=== PATIENT | female | born 1950 | race Caucasian/White ===

== ENCOUNTER → 2016-07-13 | Outpatient (CLI) | payer OTHER ==
[~2016-07-13] MED LIST: ASPEC81 PO; ASPI81TA21 PO; IMDSR30 PO; LEVO100T PO; LEVO100T84 PO; METO25TA56 PO; NIAC1TAB59 PO; NTRGSL/4 UT; OMEP20CA9 OR; PARO1TAB29 PO; SIMV80TA5 OR
--- NOTE | 2016-07-13 12:15 | DIAGNOSTIC IMAGING REPORT ---
BILATERAL POPLITEAL ULTRASOUND CLINICAL HISTORY: Bilateral knee pain. COMPARISON STUDY: No previous studies for comparison. FINDINGS: Sonography of the right popliteal fossa demonstrated a 3.7 x 1.1 cm cystic abnormality suggestive of a popliteal cyst. Sonography of the left popliteal fossa demonstrated a 3.7 x 1 cm cystic abnormality suggestive of a popliteal cyst. IMPRESSION: Small bilateral popliteal cysts. Electronically signed by: Willie Ji M.D. 07/13/2016 12:13 PM Dictated Date/Time: 07/13/2016 12:11 PM
--- NOTE | 2016-07-13 12:22 | DIAGNOSTIC IMAGING REPORT ---
RIGHT KNEE 1 OR 2 VIEWS ROUTINE CLINICAL HISTORY: Right knee pain COMPARISON: None. DISCUSSION: No acute fractures are visualized. There are moderately advanced osteoarthritic changes involving the medial joint compartment and patellofemoral joint. No destructive lesions are visualized IMPRESSION: 1. Moderately advanced osteoarthritic changes 2. No acute fractures Electronically signed by: Jb Flaherty M.D. 07/13/2016 12:20 PM Dictated Date/Time: 07/13/2016 12:19 PM
--- NOTE | 2016-07-13 12:30 | DIAGNOSTIC IMAGING REPORT ---
LEFT KNEE 1 OR 2 VIEWS ROUTINE CLINICAL HISTORY: Bilateral knee pain. COMPARISON: Left knee radiographs December 27, 2008. FINDINGS: Alignment of left knee is anatomic. There is no fracture or joint effusion. There is mild medial compartment joint space narrowing as well as mild narrowing of the patellofemoral joint space. There is osteophytosis. Moderate vascular calcification is present. 9 mm calcific density is noted posterior to the joint space. This may be within a popliteal cyst. IMPRESSION: 1. No acute fracture or joint effusion of the left knee. 2. Mild to moderate arthritis of the left knee, most pronounced within the medial and patellofemoral compartments. Electronically signed by: Willie Ji M.D. 07/13/2016 12:28 PM Dictated Date/Time: 07/13/2016 12:26 PM
== END | disposition home or self-care (01) ==
LOC: C.ULTR 11:46
PROVIDERS: ATTEND Family Medicine
DX: M25.569 Pain in unspecified knee (principal)

== ENCOUNTER 2016-10-25 22:31 | Emergency (ER) | payer OTHER ==
[~2016-10-25] VITALS: Ht 165.1 cm; Wt 99.8 kg
[~2016-10-25 22:31] MED LIST changes: -ASPI81TA21 PO; -LEVO100T PO
[2016-10-25 22:38] VITALS: TEMP 36.3; Ht 165.1 cm; Wt 99.8 kg
[2016-10-25] MEDS ORDERED: LEVO100T PO (22:57)
[2016-10-25] MEDS ORDERED: ASPI81TA21 PO (22:57)
[2016-10-25] MEDS ORDERED: IMDSR30 PO (22:57)
[2016-10-25] MEDS ORDERED: ONDANSETRON INJ 2 MG/ML 2 ML VIAL IV STA (23:24)
[2016-10-25] MEDS ORDERED: KETOROLAC TROMETHAMINE 30 MG/ML VIAL IV STA (23:24)
[2016-10-25] MEDS ORDERED: MoRPHine SULFATE 4 MG/ML 1 ML CARP\\VIAL IV STA (23:24)
--- NOTE | 2016-10-25 23:35 | EMERGENCY ROOM VISIT NOTE ---
History Report prepared by Blank: Fred Blanco Under the Supervision of: Dr. Blank Diaz D.O. First contact with patient: 23:09 Chief Complaint: NECK PAIN Stated Complaint: NECK PAIN/HEAD History of Present Illness The patient is a 65 year old female who presents to the Emergency Room with complaints of persistent neck pain that started yesterday. The patient also complains of sore throat, ear pain, and headache. The patient notes that her neck pain got significantly worse throughout the day yesterday. Her neck discomfort is worse in the back of her neck, but she also notes the front of her neck is tender to the touch. She notes she has never had similar symptoms before. The patient denies fevers, chills, cough, nausea, vomiting, abdominal pain, chest pain, shortness of breath, or leg swelling or pain at this time. Source of History: patient Onset: yesterday Position: neck Timing: other (persistent) Associated Symptoms: + headache, + sorethroat, No SOB, No abdominal pain, No chest pain, No chills, No cough, No fevers, No nausea, No vomiting Note: Other associated symptoms: ear pain' Denies: leg swelling or pain Review of Systems See HPI for pertinent positives & negatives. A total of 10 systems reviewed and were otherwise negative. Past Medical & Surgical Medical Problems: (1) Diabetes (2) Heart disease Family History FH: cancer FH: diabetes mellitus FH: heart disease FH: hypertension FH: lung disease Kidney stone Social History Smoking Status: Current Every Day Smoker Alcohol Use: occasionally Housing Status: lives with family Occupation Status: unemployed Current/Historical Medications Scheduled Aspirin Enteric Coated (Ecotrin Or Generic), 81 MG PO DAILY Isosorbide Mononitrate (Isosorbide Mononitrate ER), 30 MG PO DAILY Levothyroxine Sodium (Synthroid), 100 MCG PO DAILY Metoprolol Tartrate (Lopressor) (Lopressor), 12.5 MG PO DAILY Niacin Ext Rel (Niaspan Ext Rel), 500 MG PO DAILY Nitroglycerin (Nitrostat), 0.4 MG UT PRN Omeprazole (Prilosec), 20 MG OR DAILY Paroxetine (Paxil), 40 MG PO DAILY Allergies Coded Allergies: No Known Allergies (Verified , 10/25/16) Physical Exam Vital Signs Date Time Temp Pulse Resp B/P Pulse Ox O2 Delivery O2 Flow Rate FiO2 10/26/16 02:03 67 16 132/70 98 10/26/16 00:37 72 16 122/67 96 Room Air 10/25/16 22:38 36.3 98 20 139/82 97 Room Air Physical Exam General: Extremely uncomfortably appearing, holding her neck. HEENT: Head - normocephalic and atraumatic. Pupils are equal, round, and reactive to light. Extraocular eye muscles are intact and sclera are anicteric. Ears - bilaterally patent canals with noninjected tympanic membranes and no evidence of hemotympanum. Nose - moist nasal mucosa without discharge. Mouth - moist buccal mucosa. Oropharynx is nonerythematous and there is no tonsillar exudate or edema noted. Neck: Left anterior cervical lymphadenopathy. Tender to the touch. Pain with palpation around C3 and C4 of the midline cervical spine. No thyromegaly. Heart: Regular rate and rhythm. There is a normal S1 and S2 with no murmurs, clicks, or gallops appreciated. Lungs: Clear to auscultation bilaterally with no wheezes, rales, or rhonchi. Abdomen: Soft, completely nontender, nondistended, with good bowel sounds. There are no palpable pulsatile masses or hepatosplenomegaly. There is no guarding, rigidity, or rebound noted. Extremities: No evidence of cyanosis, clubbing, or edema. There are easily palpable peripheral pulses. Neuro:The patient is awake and alert, oriented to day, time, and place. Muscle strength is 5/5 in all 4 extremities. The patient has equal back tender pulp drier strength and equal pedal push and pull. There are no cerebellar signs. Medical Decision & Procedures ER Provider Diagnostic Interpretation: CT results as stated below per my review and radiologist interpretation: CT C Spine: There may be slight nodularity of the vocal cords versus partial volume averaging. No fluid collections or masses. No inflammatory changes. Epiglottis normal. Airway patent. Calcific plaque bilateral proximal ICA with mild to moderate stenosis proximal right ICA and mild stenosis left ICA. Degenerative changes at C1-C2. No prevertebral soft tissue swelling. Laboratory Results 10/25/16 23:28 Red Blood Count 4.52, Mean Corpuscular Volume 94.9, Mean Corpuscular Hemoglobin 33.6, Mean Corpuscular Hemoglobin Concent 35.4, Mean Platelet Volume 10.9, Neutrophils (%) (Auto) 44.2, Lymphocytes (%) (Auto) 42.4, Monocytes (%) (Auto) 10.0, Eosinophils (%) (Auto) 2.7, Basophils (%) (Auto) 0.4, Neutrophils # (Auto ) 3.42, Lymphocytes # (Auto) 3.27, Monocytes # (Auto) 0.77, Eosinophils # (Auto ) 0.21, Basophils # (Auto) 0.03 10/25/16 23:28 Test 10/25/16 23:28 White Blood Count 7.72 K/uL (4.8-10.8) Red Blood Count 4.52 M/uL (4.2-5.4) Hemoglobin 15.2 g/dL (12.0-16.0) Hematocrit 42.9 % (37-47) Mean Corpuscular Volume 94.9 fL (80-100) Mean Corpuscular Hemoglobin 33.6 pg (25-34) Mean Corpuscular Hemoglobin Concent 35.4 g/dl (32-36) Platelet Count 202 K/uL (130-400) Mean Platelet Volume 10.9 fL (7.4-10.4) Neutrophils (%) (Auto) 44.2 % Lymphocytes (%) (Auto) 42.4 % Monocytes (%) (Auto) 10.0 % Eosinophils (%) (Auto) 2.7 % Basophils (%) (Auto) 0.4 % Neutrophils # (Auto) 3.42 K/uL (1.4-6.5) Lymphocytes # (Auto) 3.27 K/uL (1.2-3.4) Monocytes # (Auto) 0.77 K/uL (0.11-0.59) Eosinophils # (Auto) 0.21 K/uL (0-0.5) Basophils # (Auto) 0.03 K/uL (0-0.2) RDW Standard Deviation 44.4 fL (36.4-46.3) RDW Coefficient of Variation 12.8 % (11.5-14.5) Immature Granulocyte % (Auto) 0.3 % Immature Granulocyte # (Auto) 0.02 K/uL (0.00-0.02) Erythrocyte Sedimentation Rate 6 mm/hr (0-21) Anion Gap 9.0 mmol/L (3-11) Est Creatinine Clear Calc Drug Dose 91.0 ml/min Estimated GFR () 99.9 Estimated GFR (Non- 86.2 BUN/Creatinine Ratio 16.5 (10-20) Calcium Level 9.0 mg/dl (8.5-10.1) C-Reactive Protein < 0.29 mg/dl (0-0.29) Laboratory results per my review. Medications Administered Medications (Trade) Dose Ordered Sig/Paula Route Start Time Stop Time Status Last Admin Dose Admin Ketorolac Tromethamine (Toradol Inj) 30 mg NOW STAT IV 10/25/16 23:24 10/25/16 23:26 DC 10/25/16 23:45 30 MG Morphine Sulfate (MoRPHine SULFATE INJ) 4 mg NOW STAT IV 10/25/16 23:24 10/25/16 23:27 DC 10/25/16 23:45 4 MG Ondansetron HCl (Zofran Inj) 4 mg NOW STAT IV 10/25/16 23:24 10/25/16 23:27 DC 10/25/16 23:45 4 MG Procedure Zofran Inj IV Morphine Sulfate IV Toradol Inj Oxycodone/ Acetaminophen PO ED Course 2312: Past medical records reviewed. The patient was evaluated in room C3. A complete history and physical exam was performed. An IV lock was initiated and labs were drawn as above. 2324: Ordered Zofran Inj 4 mg IV, Morphine Sulfate 4 mg IV, Toradol Inj 30 mg IV. She will go for CT scan of the cervical spine with IV contrast to rule out abscess formation. 0018: At this time, I reevaluated the patient and she was feeling better. She rated her discomfort as a 4 out of 10 in severity which was down from before when it was a 10 out of 10. The patient still did have point tenderness around C3 and C4 on exam. 0141: Upon reevaluation, the patient is resting. Her pain is starting to come back slightly, but she states that she does not want anything more for pain. We discussed a lumbar puncture again to rule out meningitis and she feels this is unnecessary at this time. She will follow-up with her PCP tomorrow to discuss the carotid stenosis finding before her cardiac catheterization later this week. 0200: Ordered Oxycodone/ Acetaminophen 1 homepack PO. 0205: I discussed findings and results with her. She verbalized agreement of the treatment plan. The patient was discharged home. Medical Decision The patient is a 65 year old female who presents to the ED with neck pain. Differential diagnosis includes meningitis, epidural abscess, torticollis, cervical strain, pharyngitis, or otitis media. Labs reviewed by me: no leukocytosis, stable H&H, sed rate was 6, negative c- reactive protein, BUN 12, creatinine 0.7, glucose 138. This is a 65-year-old female patient who presents emergency department with moderate posterior neck pain. We talked about the possibility of meningitis, torticollis, or an epidural abscess. The patient's family is concerned that she is suffering from significant stress as they have had multiple deaths in her family in the past 4 months. Her pain was significantly relieved with IV analgesia. She has increased range of motion. She has no leukocytosis or fever to suggest an infectious process. Sedimentation rate and C-reactive protein were also negative. In light of those findings, the likelihood of an infectious process is less likely. As an incidental finding, there was moderate stenosis of the right internal carotid artery. 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 If the discomfort in the neck persists, she should see her PCP later today. If she develops a fever or worsening symptoms, she should return here to the ER. Impression Primary Impression: Neck pain, acute Scribe Attestation The scribe's documentation has been prepared under my direction and personally reviewed by me in its entirety. I confirm that the note above accurately reflects all work, treatment, procedures, and medical decision making performed by me. Departure Information Dispostion Home / Self-Care Referrals Sivan Torres PA-C (PCP) Forms HOME CARE DOCUMENTATION FORM, IMPORTANT VISIT INFORMATION, WORK / SCHOOL INSTRUCTIONS Patient Instructions ED Neck Pain No Trauma, My [facility], Neck Cervical Spine Additional Instructions Rest. Limit stress and anxiety Ibuprofen - 800mg every 6-8 hours for pain Percocet - 1-2 tabs. every 6 hours for pain You must follow up today with your PCP for a recheck and to also discuss the narrowing of the right internal carotis artery before your cath on . Return to the ER immediately for any fever or worsening neck stiffness
[2016-10-25 23:44] LABS: BASO % 0.4 %; BASO ABS # 0.03 K/uL (0-0.2); COMPLETE YES; EOS % 2.7 %; HEMATOCRIT 42.9 % (37-47); IG% 0.3 %; LYMPH % 42.4 %; LYMPH ABS # 3.27 K/uL (1.2-3.4); MEAN CELL VOLUME 94.9 fL (80-100); MEAN CORPUSCULAR HEMOGLOBIN 33.6 pg (25-34); MEAN CORPUSCULAR HGB CONC 35.4 g/dl (32-36); MEAN PLATELET VOLUME 10.9 fL (7.4-10.4); NEUT % 44.2 %; PLATELET COUNT 202 K/uL (130-400); RED BLOOD COUNT 4.52 M/uL (4.2-5.4); WHITE BLOOD COUNT 7.72 K/uL (4.8-10.8)
[2016-10-26 00:04] LABS: BLOOD UREA NITROGEN 12 mg/dl (7-18); BUN/CREATININE RATIO 16.5 (10-20); C-REACTIVE PROTEIN < 0.29 mg/dl (0-0.29); CARBON DIOXIDE 27 mmol/L (21-32); CHLORIDE 106 mmol/L (98-107); CREATININE 0.74 mg/dl (0.60-1.20); GLUCOSE 138 mg/dl (70-99); POTASSIUM 3.8 mmol/L (3.5-5.1); SODIUM 142 mmol/L (136-145)
[2016-10-26] MEDS ORDERED: OPTIRAY 320 IV PRN (00:30)
[2016-10-26] MEDS ORDERED: PERCOCET HOME PACK PO ONE (02:00)
[2016-10-26 02:03] VITALS: BP 132/70; PULSE 67; O2SAT 98
--- NOTE | 2016-10-26 06:51 | DIAGNOSTIC IMAGING REPORT ---
CT CERVICAL SPINE WITH CT DOSE: 307.38 mGy.cm CLINICAL HISTORY: Severe pain at C3 and C4. Evaluate for abscess. TECHNIQUE: Axial images of the cervical spine were obtained following intravenous injection of 100 cc of Optiray 320 IV. Sagittal and coronal reconstructions were viewed. COMPARISON STUDY: None. FINDINGS: Alignment of the cervical spine is anatomic with the exception of straightening. No cervical spine fracture or suspicious lesion is present. Moderate degenerative changes are noted at C1-C2 articulation. There is calcification adjacent to the dens. This is likely old. There is no prevertebral edema. Sensitivity for detection of epidural collections is diminished by CT but none are identified. [id number] multilevel degenerative disc disease and facet arthrosis is noted, most pronounced at C5-C6 and C6-C7. There is moderate plaque within the proximal bilateral internal carotid arteries without high-grade stenosis. IMPRESSION: 1. No cervical spine fracture or subluxation. 2. Mild to moderate multilevel degenerative disc disease and facet arthrosis of the cervical spine. 3. No epidural fluid collection identified by CT. 4. Moderate plaque within the proximal bilateral internal carotid arteries. Findings are suboptimally assessed on this exam but suggest mild stenosis of the proximal right internal carotid artery. No high-grade stenosis. Electronically signed by: Willie Ji M.D. 10/26/2016 6:48 AM Dictated Date/Time: 10/26/2016 6:41 AM
== END 2016-10-26 02:04 | disposition home or self-care (01) ==
LOC: C.EDB 22:32 → C.EDC 10-26 02:04
DX: M54.2 Cervicalgia (principal); E11.9 Type 2 diabetes mellitus without complications; F17.200 Nicotine dependence, unspecified, uncomplicated; Z83.3 Family history of diabetes mellitus; Z82.49 Family history of ischemic heart disease and other diseases of the circulatory system; Z84.1 Family history of disorders of kidney and ureter; Z79.82 Long term (current) use of aspirin

== ENCOUNTER 2024-10-04 12:19 | Inpatient (IN) ==
--- NOTE | 2024-10-04 12:27 | Emergency Department Note ---
Impression & Plan Closed hip fracture Admission ED Provider Note HPI: History obtained from patient. The patient is a 73-year-old female with history of coronary artery disease, presents the emergency department after mechanical fall. Patient states that she was walking into a restaurant when she missed a step and fell onto her left hip. Patient states she has severe pain in the area of her left hip. Patient denies any other injuries. Patient arrives via EMS otherwise hemodynamically stable, she is alert and oriented x 3 on arrival. Patient denies any chest pain or shortness of breath, denies any abdominal pain, patient denies hitting her head. Patient has limited range of motion at the right hip secondary to pain. ROS: - Per HPI Differential Diagnosis: Right hip fracture, dislocation, pelvic fracture, knee dislocation/knee fracture, patellar fracture, hip contusion/thigh contusion, amongst other potential pathologies. *Outpatient medications and allergy history reviewed. PE: General: Alert HEENT: Normocephalic, trachea midline Eyes: Extraocular eye movement is intact, no scleral erythema Pulmonary: Clear to auscultation bilaterally, no wheezing Cardio: Regular rate and rhythm GI: Abdomen is soft to palpation : No suprapubic tenderness MSK: Limited range of motion at the left hip secondary to pain, otherwise no evidence of trauma or malformation of the extremities, no edema, palpable DP pulses bilaterally Skin: No evidence of rash Neuro: Alert, no focal deficits Psychiatric: Cooperative INDEPENDENT INTERPRETATIONS: clinic coordinator: (As interpreted by myself): - An order was placed for continuous cardiac monitoring - Patient was noted to be in sinus rhythm with a rate of 60 EKG: (As interpreted by myself): Rate: 63 Rhythm: Normal sinus rhythm Intervals: Within normal limits ST changes: No ST elevation Time: 1307 Chest x-ray: (As interpreted by myself): No acute disease Interventions provided in ED: -IV morphine, IV Zofran, IV fluid bolus Medical Decision Making: IV was established and lab work obtained, 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 Lab work shows no leukocytosis, hemoglobin is normal, platelet count is normal, CMP does not show any evidence of any critical findings. Troponin is negative. EKG shows normal sinus rhythm. X-ray imaging of the pelvis does confirm left nondisplaced intertrochanteric hip fracture. Chest x-ray does not show any evidence of acute disease. On my reassessment the patient states that she feels improved following IV morphine and IV Zofran. Patient is agreeable for admission for orthopedic surgery consultation. Case was discussed via [place] text with the on-call orthopedist, Dr. Santoyo, and he is in agreement for consultation and definitive care. Case was then discussed with the on-call hospitalist team for [facility] and the patient was placed for admission in stable condition. Consultants/Discussions held with other healthcare providers: -Orthopedics, Dr. Santoyo -Hospitalist, Dr. Luong Disposition discussion held by myself with: -Patient Diagnosis: 1. Left hip fracture, acute, closed 2. Mechanical fall, acute Disposition: Admission Lázaro Vick DO Emergency Medicine Past Med/Surg History Problem List (Updated 10/04/24 @ 17:53 by Lázaro Vick DO) Closed hip fracture (Acute) Fall Fracture of femur, left, closed Malignant neoplasm of upper-inner quadrant of left breast in female, estrogen receptor positive (Chronic) Encounter for pre-operative examination Diabetes (Chronic) Heart disease (Chronic) Medical History (Updated 10/04/24 @ 17:53 by Lázaro Vick DO) Tobacco use CAD (coronary artery disease) Breast cancer Left - Diagnosed 05/24/18 Hypothyroidism Diabetes mellitus, type 2 Anxiety Myocardial Infarction CARDIAC CATH 2007 YEARS AGO WITH STENT to RCA. COMPLICATED BY PROXIMAL RCA DISSECTION TREATED WITH BMS. TX TO [facility] BUT DID NOT REQUIRE FURTHER INTERVENTION. CT 04/05/08 SHOWED NO FLOW DOWN RCA BUT APPEARANCE OF COLLATERALS. RPT CATH 2017 SHOWED IMPROVED FLOW IN RCA COMPARED TO 2007. Hyperlipidemia Arrhythmia FREQUENT PVCs noted on Holter 2017. Metoprolol was increased; hypomagnesemia was noted on labs, started on supplementation. Surgical History Status post left breast lumpectomy 06/30/18 - with SLN biopsy History of colonoscopy 2008 History of carpal tunnel release 2002 - B/L History of bilateral tubal ligation 1984 History of cardiac cath 2007 Family History Mother , Passed age 64 of asthma complications No problems noted. Father , Passed age 76 of hemochromotosis Lung cancer, Onset Age: 57 Had surgery and then was okay, was a smoker Sister , Passed age 55 of metastatic lung cancer (unknown primary) Lung cancer Sister , Passed age 59 of [place] No problems noted. Sister Multiple sclerosis Brother No problems noted. Son No problems noted. 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 Machine Required: No Beliefs That Will Affect Care: None marital status: / Current Living Situation: Family Current Living Situation Comment: Lives with sister (takes care of her) current occupational status: retired current occupation: Retired at [employer] Feels Safe at Home: Yes caffeine: Yes (6 cups of coffee/day ) during the past year weight has: decreased > 10 lbs Assistive Devices: Denture - Upper, Denture - Lower and Glasses Allergies Allergies Allergy/AdvReac Type Severity Reaction Status Date / Time No Known Allergies Allergy Unknown Verified 10/04/24 13:43 Home Meds Home Medications Medication Instructions Recorded Confirmed atorvastatin 80 mg tablet 80 mg PO QAM 06/13/18 10/04/24 metoprolol tartrate 25 mg tablet 12.5 mg PO BID 06/13/18 10/04/24 calcium carbonate (Calcium 600) 600 mg PO HS 11/23/18 10/04/24 alirocumab 75 mg/mL subcutaneous 75 mg subcut Q14D 10/04/24 10/04/24 pen injector (Praluent Pen) aspirin 81 mg tablet,delayed 81 mg PO QAM 10/04/24 10/04/24 release duloxetine 60 mg capsule,delayed 60 mg PO QAM 10/04/24 10/04/24 release levothyroxine 100 mcg tablet 100 mcg PO DAILYBB 10/04/24 10/04/24 omeprazole 20 mg capsule,delayed 20 mg PO HS 10/04/24 10/04/24 release semaglutide 0.25 mg or 0.5 mg (2 0.5 mg subcut WK 10/04/24 10/04/24 mg/3 mL) subcutaneous pen injector (Ozempic) Results & Data (ED) Vital Signs Vital Signs - 24 hr 10/04/24 12:23 10/04/24 12:33 10/04/24 12:42 Temperature 36.4 C L Temperature Source Oral Pulse Rate 62 62 61 Pulse Rate [Apical] Respiratory Rate 13 14 Respiratory Effort / Characteristics Non-Labored Spontaneous Respiratory Depth Normal Blood Pressure 130/78 Blood Pressure [Left Arm] Blood Pressure Mean 95 Blood Pressure Mean [Left Arm] Blood Pressure Position Semi-fowlers Blood Pressure Position [Left Arm] Pulse Oximetry 99 99 Oxygen Delivery Method Room Air Room Air Oxygen Flow Rate Sepsis Recent Fever Within 48 Hours No Sepsis New/Unexplained Change in Mental Status N/A Sepsis Action Taken by Nursing No Action Required 10/04/24 13:39 10/04/24 13:39 10/04/24 13:39 Temperature 36.4 C 36.4 C Temperature Source Oral Pulse Rate 70 Pulse Rate [Apical] 70 Respiratory Rate 16 13 Respiratory Effort / Characteristics Non-Labored Spontaneous Respiratory Depth Normal Blood Pressure 129/62 Blood Pressure [Left Arm] 129/62 Blood Pressure Mean Blood Pressure Mean [Left Arm] 84 Blood Pressure Position Blood Pressure Position [Left Arm] Semi-fowlers Pulse Oximetry 97 97 97 Oxygen Delivery Method Room Air Room Air Room Air Oxygen Flow Rate 0 Sepsis Recent Fever Within 48 Hours Sepsis New/Unexplained Change in Mental Status Sepsis Action Taken by Nursing Laboratory Data 10/04/24 12:25 10/04/24 12:25 Lab Results 10/04/24 Range/Units 12:25 WBC 7.50 (4.8-10.8) K/ul RBC 4.54 (4.20-5.40) M/uL Hgb 15.1 (12.0-16.0) g/dl Hct 43.7 (37.0-47.0) % MCV 96.3 (80.0-100.0) fL MCH 33.3 (25.0-34.0) pg MCHC 34.6 (32.0-36.0) g/dL RDW Std Deviation 44.6 (36.4-46.3) fL RDW Coeff of Leon 12.6 (11.5-14.5) % Plt Count 188 (130-400) K/uL MPV 10.8 (9.4-12.4) fL Immature Gran % (Auto) 0.7 % Neut % (Auto) 56.5 % Lymph % (Auto) 31.9 % [place] % (Auto) 8.0 % Eos % (Auto) 2.4 % Baso % (Auto) 0.5 % Neut # (Auto) 4.24 (1.40-6.50) K/uL Lymph # (Auto) 2.39 (1.20-3.40) K/uL [place] # (Auto) 0.60 H (0.11-0.59) K/uL Eos # (Auto) 0.18 (0.00-0.50) K/uL Baso # (Auto) 0.04 (0.00-0.20) K/uL Immature Gran # (Auto) 0.05 (0.01-0.20) K/uL PT 10.3 (9.0-12.0) Seconds INR 0.9 (0.9-1.1) APTT 24 (21-31) Seconds PTT Ratio 0.9 Sodium 140 (136-145) mmol/L Potassium 4.9 (3.5-5.1) mmol/L Chloride 107 (98-107) mmol/L Carbon Dioxide 30 (21-32) mmol/L Anion Gap 3 (3-11) BUN 14 (6-23) mg/dl Creatinine 0.58 L (0.6-1.2) mg/dl Est Cr Clr Drug Dosing 97.6 ml/min eGFR 96.69 BUN/Creatinine Ratio 24.1 H (10-20) Glucose 125 H (70-99(Fasting)) mg/dl Calcium 9.4 (8.6-10.3) mg/dl Total Bilirubin 0.7 (0.2-1.0) mg/dl AST 21 (13-39) U/L ALT 19 (7-52) U/L Alkaline Phosphatase 95 (34-104) U/L Troponin I High Sens 5.0 (0-14) pg/ml Total Protein 7.0 (6.0-8.3) gm/dl Albumin 4.1 (3.4-5.0) gm/dl Globulin 2.9 (2.5-4.0) gm/dl Albumin/Globulin Ratio 1.4 (0.9-2) Administered Medications Discontinued Medications Sodium Chloride (Nss) 1,000 mls @ 999 mls/hr IV .Q1H1M ONE Stop: 10/04/24 13:24 Last Infusion: 10/04/24 13:52 Dose: Infused Documented By: Admin: 10/04/24 12:31 Dose: 999 mls/hr Documented By: ARELIS Acetaminophen (Ofirmev) 1,000 mg in 100 mls @ 400 mls/hr IV NOW STA Stop: 10/04/24 15:35 Last Infusion: 10/04/24 17:13 Dose: Infused Documented By: Admin: 10/04/24 15:59 Dose: 400 mls/hr Documented By: TIM Morphine Sulfate (Morphine Sulfate 4 Mg/Ml 1 Ml Carp\Vial) 4 mg IV NOW STA Stop: 10/04/24 12:25 Last Admin: 10/04/24 12:31 Dose: 4 mg Documented By: ARELIS Morphine Sulfate (Morphine Sulfate 2 Mg/Ml Carp) 2 mg IV NOW STA Stop: 10/04/24 14:12 Last Admin: 10/04/24 14:52 Dose: 2 mg Documented By: MONIQUE Ondansetron HCl (Ondansetron Inj 2 Mg/Ml 2 Ml Vial) 4 mg IV NOW STA Stop: 10/04/24 12:25 Last Admin: 10/04/24 12:31 Dose: 4 mg Documented By: ARELIS Imaging Data Radiologist's Impression: Chest X-Ray 10/04/24 12:24 XR chest 1V portable HISTORY: 73 years-old Female Trauma acute chest trauma COMPARISON: 05/21/2008 TECHNIQUE: AP view of the chest FINDINGS: Cardiac silhouette is mildly enlarged. Atherosclerosis of the aorta. No pneumothorax, pleural effusion or airspace consolidation. Bones appear grossly intact. IMPRESSION: No acute process. ACT 112: Negative or not required by law. The above report was generated using voice recognition software. It may contain grammatical, syntax or spelling errors. Electronically signed by: Efe Borrero M.D. 10/04/2024 12:51 PM Hip/Pelvis X-Ray 10/04/24 12:24 XR hip AGUILAR 2v w pelvis CLINICAL HISTORY: fall COMPARISON STUDY: None FINDINGS: AP pelvis and 2 views of both hips demonstrates no evidence of an acute pelvic fracture. The right hip appears to be intact with no evidence of fracture or dislocation. There is a nondisplaced intertrochanteric fracture of the proximal left femur associated with the lesser trochanteric avulsion. IMPRESSION: Nondisplaced intertrochanteric fracture proximal left femur. ACT 112: Negative or not required by law. Electronically signed by: Ana Lilia Mg M.D. 10/04/2024 1:19 PM Femur X-Ray 10/04/24 13:34 XR femur LT 2V routine CLINICAL HISTORY: fall. hip fx COMPARISON: Pelvis and hips same date FINDINGS: AP and lateral views of the left femur redemonstrate the nondisplaced intertrochanteric fracture of the proximal left femur. There are no additional traumatic femoral lesions. There is no periosteal reaction. There is pronounced arterial calcification. There is moderate to advanced tricompartmental osteoarthritis of the knee joint most pronounced in the medial compartment. IMPRESSION: Nondisplaced intertrochanteric fracture redemonstrated. No additional femoral injury is appreciated. ACT 112: Negative or not required by law. Electronically signed by: Ana Lilia Mg M.D. 10/04/2024 2:38 PM Discharge Plan Visit Data Chief Complaint: Trauma Stated Complaint: FALL, L HIP PAIN ED Provider: Lázaro Vick Discharge Problem: Closed hip fracture Patient Disposition: Admitted As Inpatient Discharge Instructions Interventions: ED Discharge Assessment Last Done: 10/04/24 17:14
[2024-10-04] MEDS: SODIUM CHLORIDE 0.9% 1,000 ML IV ONE (12:31)
[2024-10-04] MEDS: MoRPHine SULFATE 4 MG/ML 1 ML CARP\\VIAL IV STA (12:31)
[2024-10-04] MEDS: ONDANSETRON INJ 2 MG/ML 2 ML VIAL IV STA (12:31)
[2024-10-04 12:47] LABS: Basophils # (auto) 0.04 K/uL (0.00-0.20); Basophils % (auto) 0.5 %; Eosinophils # (auto) 0.18 K/uL (0.00-0.50); Eosinophils % (auto) 2.4 %; Hematocrit (blood only) 43.7 % (37.0-47.0); Hemoglobin 15.1 g/dl (12.0-16.0); Immature Granulocytes # (auto) 0.05 K/uL (0.01-0.20); Immature Granulocytes % (auto) 0.7 %; Lymphocytes # (auto) 2.39 K/uL (1.20-3.40); Lymphocytes % (auto) 31.9 %; Mean Corpuscular Hemoglobin 33.3 pg (25.0-34.0); Mean Corpuscular Hgb Conc 34.6 g/dL (32.0-36.0); Mean Corpuscular Volume 96.3 fL (80.0-100.0); Mean Platelet Volume 10.8 fL (9.4-12.4); Neutrophils # (auto) 4.24 K/uL (1.40-6.50); Neutrophils % (auto) 56.5 %; Platelet Count 188 K/uL (130-400); RDW Coefficient of Variation 12.6 % (11.5-14.5); RDW Standard Deviation 44.6 fL (36.4-46.3); Red Blood Count 4.54 M/uL (4.20-5.40)
--- NOTE | 2024-10-04 12:53 | XRay Report ---
XR chest 1V portable HISTORY: 73 years-old Female Trauma acute chest trauma COMPARISON: 05/21/2008 TECHNIQUE: AP view of the chest FINDINGS: Cardiac silhouette is mildly enlarged. Atherosclerosis of the aorta. No pneumothorax, pleural effusio n or airspace consolidation. Bones appear grossly intact. IMPRESSION: No acute process. ACT 112: Negative or not required by law. The above report was generated using voice recognition software. It may contain grammatical, syntax o r spelling errors. Electronically signed by: Efe Borrero M.D. 10/04/2024 12:51 PM
[2024-10-04 12:54] LABS: INR 0.9 (0.9-1.1); Partial Thromboplastin Ratio 0.9; Partial Thromboplastin Time 24 Seconds (21-31); Prothrombin Time 10.3 Seconds (9.0-12.0)
[2024-10-04 13:04] LABS: Albumin Globulin Ratio 1.4 (0.9-2); Albumin Level 4.1 gm/dl (3.4-5.0); BUN Creatinine Ratio 24.1 (10-20); Bilirubin,Total 0.7 mg/dl (0.2-1.0); Calcium 9.4 mg/dl (8.6-10.3); Creatinine Clr Calc Pharmacy 97.6 ml/min; Globulin 2.9 gm/dl (2.5-4.0); Potassium 4.9 mmol/L (3.5-5.1)
--- NOTE | 2024-10-04 13:21 | XRay Report ---
XR hip AGUILAR 2v w pelvis CLINICAL HISTORY: fall COMPARISON STUDY: None FINDINGS: AP pelvis and 2 views of both hips demonstrates no evidence of an acute pelvic fracture. Th e right hip appears to be intact with no evidence of fracture or dislocation. There is a nondisplaced intertrochanteric fracture of the proximal left femur associated with the les ser trochanteric avulsion. IMPRESSION: Nondisplaced intertrochanteric fracture proximal left femur. ACT 112: Negative or not required by law. Electronically signed by: Ana Lilia Mg M.D. 10/04/2024 1:19 PM
--- NOTE | 2024-10-04 13:41 | History & Physical Report ---
Date of Service October 04, 2024 Assessment & Plan (1) Fracture of femur, left, closed: (2) Fall: Plan: History CAD, [place] in 2007 with complication of RCA dissection requiring bare-metal stent to ostium for stabilization, HTN, HLD, DM II, hypothyroidism, tobacco use, polycythemia, history of left breast CVA s/p lumpectomy, radiation, GERD, obesity presented to ER with complaint of fall and left hip pain today. Denies hitting head, LOC or syncope. Denies dizziness, CP, SOB prior to fall. Hip/pelvis xray: Nondisplaced intertrochanteric fracture proximal left femur. Left femur xray: Nondisplaced intertrochanteric fracture redemonstrated. No additional femoral injury is appreciated. CXR: No acute process. In ER given morphine 4mg IV, Zofran 4mg IV, NSS 1L Bedrest Pain control with scheduled Tylenol, oxycodone, morphine prn Incentive spirometry Revised cardiac risk index: 6% risk of major cardiac event Ortho consult. Discussed with Dr Santoyo. Will keep pt NPO for probable procedure this evening Anesthesia consult CBC, BMP in am (3) CAD (coronary artery disease): Plan: 03/13/08: inferoposterior NH. Emergent catheterization complicated by RCA dissection requiring bare-metal stenting to the ostium for stabilization. 10/29/16 cardiac catheterization: by Dr. Acharya at [facility] following presentation with atypical chest pain, mildly abnormal EKG, and abnormal nuclear stress testing. Catheterization showed no progression of disease in the LCA; large LM, LAD, and two large LCX branches which were not compromised. There was only a small degree of collateral flow from the LAD septals to the RPDA. The RCA was patent but with a very long complex lesion extending 1/[address] down representing recanalization. The risks of stenting the proximal RCA lesion were felt to be greater than the benefit thus medical management was advised 10/21/23 echo: EF: 55-59%, grade 1 diastolic dysfunction, aortic valve sclerosis without stenosis, severe mitral annular calcification, mild mitral regurgitation 12/08/23 Lexiscan Interpretation Summary: Normal Lexiscan myocardial perfusion imaging study without evidence of inducible ischemia, or myocardial scar. Gated SPECT images reveals normal myocardial thickening and wall motion. The LV ejection fraction is calculated at >70%. Denies CP, SOB, or edema No further workup for optimization for OR. Risks and benefits discussed with pt Hold aspirin for now Continue metoprolol, atorvastatin (4) Hyperlipidemia: Plan: Continue atorvastatin On Praluent Q14D (5) Diabetes mellitus, type 2: Plan: A1c: 5.9 in 06/2024 Hold home Ozempic Plan for diabetic diet when resume diet Novolog sliding scale per protocol (6) Hypothyroidism: Plan: TSH: 0.13 on 09/26/2024 Levothyroxine since decreased from 112 mcg to 100 mcg daily Is to have outpatient repeat TSH Continue levothyroxine (7) Tobacco use: Plan: Trying to cut back. Was smoking 1ppd, now reportedly smoking slightly less than 1ppd Denies nicotine patch States not interested in quitting (8) Breast cancer: Plan: History of left breast CA s/p lumpectomy, radiation DVT Prophylaxis SCDs for now Disposition Admit med surg DNR/DNI as per discussion with pt Follows with Dr Myers for routine care Pt was seen and care coordinated with Dr Luong. See addendum I spent a total of 72 minutes reviewing notes, outpatient records, labs, medication, coordinating, documenting and providing care for this patient excluding time spent in the performance of separately billed services and excluding time spent by another provider/QHP. History of Present Illness Chief Complaint: Fall Primary Care Provider: Radha Myers MD History CAD, NH in 2007 with complication of RCA dissection requiring bare-metal stent to ostium for stabilization, HTN, HLD, DM II, hypothyroidism, tobacco use, polycythemia, history of left breast CVA s/p lumpectomy, radiation, GERD, obesity presented to ER with complaint of fall and left hip pain today. Patient states was walking in to [facility] today when she reports felt like her right knee gave out causing her to fall onto her left side. Denies hitting head, LOC or syncope. Denies dizziness, CP, SOB prior to fall. Denies any other injury. Patient transported to ER via EMS. Denies prior hip injury or problems. Had 3 cups coffee between 6am-8am. Nothing to drink after, and nothing to eat today. Denies any CP, SOB, exertional SOB or edema. Denies any history of nitroglycerin use for CP. Denies fever/chills, diaphoresis, N/V/D/C, GRANDA, dizziness, neck pain, CP, SOB, orthopnea, palpitations, cough, sore throat, rhinorrhea, abdominal pain, paresthesias, extremity edema, rashes, urinary symptoms. Allergies Allergy/AdvReac Type Severity Reaction Status Date / Time No Known Allergies Allergy Unknown Verified 10/04/24 13:43 Home Medications Medication Instructions Recorded Confirmed Type atorvastatin 80 mg tablet 80 mg PO QAM 06/13/18 10/04/24 History metoprolol tartrate 25 mg tablet 12.5 mg PO BID 06/13/18 10/04/24 History calcium carbonate (Calcium 600) 600 mg PO HS 11/23/18 10/04/24 History alirocumab 75 mg/mL subcutaneous 75 mg subcut Q14D 10/04/24 10/04/24 History pen injector (Praluent Pen) aspirin 81 mg tablet,delayed 81 mg PO QAM 10/04/24 10/04/24 History release duloxetine 60 mg capsule,delayed 60 mg PO QAM 10/04/24 10/04/24 History release levothyroxine 100 mcg tablet 100 mcg PO DAILYBB 10/04/24 10/04/24 History omeprazole 20 mg capsule,delayed 20 mg PO HS 10/04/24 10/04/24 History release semaglutide 0.25 mg or 0.5 mg (2 0.5 mg subcut WK 10/04/24 10/04/24 History mg/3 mL) subcutaneous pen injector (Ozempic) Past Med/Surg History Problem List (Updated 10/04/24 @ 18:12 by Cyril Santoyo DO) Intertrochanteric fracture of left hip Closed hip fracture (Acute) Fall Fracture of femur, left, closed Malignant neoplasm of upper-inner quadrant of left breast in female, estrogen receptor positive (Chronic) Encounter for pre-operative examination Diabetes (Chronic) Heart disease (Chronic) Medical History (Updated 10/04/24 @ 18:12 by Cyril Santooy DO) Tobacco use CAD (coronary artery disease) Breast cancer Left - Diagnosed 05/24/18 Hypothyroidism Diabetes mellitus, type 2 Anxiety Myocardial Infarction CARDIAC CATH 2008 YEARS AGO WITH STENT to RCA. COMPLICATED BY PROXIMAL RCA DISSECTION TREATED WITH BMS. TX TO [facility] BUT DID NOT REQUIRE FURTHER INTERVENTION. CT 04/05/08 SHOWED NO FLOW DOWN RCA BUT APPEARANCE OF COLLATERALS. RPT CATH 2016 SHOWED IMPROVED FLOW IN RCA COMPARED TO 2007. Hyperlipidemia Arrhythmia FREQUENT PVCs noted on Holter 2017. Metoprolol was increased; hypomagnesemia was noted on labs, started on supplementation. Surgical History Status post left breast lumpectomy 06/30/18 - with SLN biopsy History of colonoscopy 2008 History of carpal tunnel release 2002 - B/L History of bilateral tubal ligation 1983 History of cardiac cath 2007 Family History Mother , Passed age 64 of asthma complications No problems noted. Father , Passed age 76 of hemochromotosis Lung cancer, Onset Age: 57 Had surgery and then was okay, was a smoker Sister , Passed age 55 of metastatic lung cancer (unknown primary) Lung cancer Sister , Passed age 59 of [place] No problems noted. Sister Multiple sclerosis Brother No problems noted. Son No problems noted. 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 Beliefs That Will Affect Care: None marital status: / Current Living Situation: Alone Current Living Situation Comment: Lives with sister (takes care of her) current occupational status: retired current occupation: Retired at [employer] Feels Safe at Home: Yes Safety Concerns: Feels Safe At This Time caffeine: Yes (6 cups of coffee/day ) during the past year weight has: decreased > 10 lbs Assistive Devices: Denture - Upper, Denture - Lower and Glasses Review of Systems Review of Systems: All systems reviewed & are unremarkable except as noted in HPI & below Physical Exam Physical Exam: General: no acute distress, WDWN Head: normocephalic, atraumatic Eyes: conjunctiva non-injected, anicteric ENT: normal inspection external ears, nose, mucous membranes moist Neck: supple, trachea midline Lungs: diminished, no respiratory distress, no wheezing/rhonchi/rales CV: RRR, + murmur, no pretibial edema Abd: normal BS, soft, non-tender Ext: no cyanosis, no calf tenderness, normal appearance BUE with ROM intact and non-tender. LLE: +left lateral hip tenderness to palpation, no attempted ROM, knee and remaining leg and ankle and foot non-tender to palpation, sensation to light touch intact. RLE: normal appearance, non-tender, pedal pushes and pulls intact, sensation to light touch intact Neuro: A&O x 3, no focal deficits noted, normal affect Skin: warm, dry Results & Data Results & Data Vital Signs (Past 12 Hours) Vital Signs Temp Pulse Resp BP Pulse Ox O2 Del Method 10/04/24 12:42 61 10/04/24 12:33 62 14 99 Room Air 10/04/24 12:23 36.4 C L 62 13 130/78 99 Room Air Laboratory Results Short CBC 10/04/24 Range/Units 12:25 WBC 7.50 (4.8-10.8) K/ul Hgb 15.1 (12.0-16.0) g/dl Hct 43.7 (37.0-47.0) % Plt Count 188 (130-400) K/uL BMP 10/04/24 12:25 Sodium 140 Potassium 4.9 Chloride 107 Carbon Dioxide 30 BUN 14 Creatinine 0.58 L Glucose 125 H Calcium 9.4 Liver Function 10/04/24 Range/Units 12:25 Total Bilirubin 0.7 (0.2-1.0) mg/dl AST 21 (13-39) U/L ALT 19 (7-52) U/L Alkaline Phosphatase 95 (34-104) U/L Albumin 4.1 (3.4-5.0) gm/dl Diagnostic Findings Chest X-Ray 10/04/24 12:24 XR chest 1V portable HISTORY: 73 years-old Female Trauma acute chest trauma COMPARISON: 05/21/2008 TECHNIQUE: AP view of the chest FINDINGS: Cardiac silhouette is mildly enlarged. Atherosclerosis of the aorta. No pneumothorax, pleural effusion or airspace consolidation. Bones appear grossly intact. IMPRESSION: No acute process. ACT 112: Negative or not required by law. The above report was generated using voice recognition software. It may contain grammatical, syntax or spelling errors. Electronically signed by: Efe Borrero M.D. 10/04/2024 12:51 PM Hip/Pelvis X-Ray 10/04/24 12:24 XR hip AGUILAR 2v w pelvis CLINICAL HISTORY: fall COMPARISON STUDY: None FINDINGS: AP pelvis and 2 views of both hips demonstrates no evidence of an acute pelvic fracture. The right hip appears to be intact with no evidence of fracture or dislocation. There is a nondisplaced intertrochanteric fracture of the proximal left femur associated with the lesser trochanteric avulsion. IMPRESSION: Nondisplaced intertrochanteric fracture proximal left femur. ACT 112: Negative or not required by law. Electronically signed by: Ana Lilia Mg M.D. 10/04/2024 1:19 PM Femur X-Ray 10/04/24 13:34 XR femur LT 2V routine CLINICAL HISTORY: fall. hip fx COMPARISON: Pelvis and hips same date FINDINGS: AP and lateral views of the left femur redemonstrate the nondisplaced intertrochanteric fracture of the proximal left femur. There are no additional traumatic femoral lesions. There is no periosteal reaction. There is pronounced arterial calcification. There is moderate to advanced tricompartmental osteoarthritis of the knee joint most pronounced in the medial compartment. IMPRESSION: Nondisplaced intertrochanteric fracture redemonstrated. No additional femoral injury is appreciated. ACT 112: Negative or not required by law. Electronically signed by: Ana Lilia Mg M.D. 10/04/2024 2:38 PM ECG Additional Comments: sinus rhythm, rate 63, Q waves anterior leads per my interpretation Supervising Physician Co-Signing Physician Notes Pt was seen and examined by myself, Shayy Luong MD on the day of service. Care was coordinated with Yanira Sanchez PA-C. 73yoF with L hip fracture after mechanical fall. Significant cardiac hx, with hx of NH with RCA dissection, recent echo with Grade I diastolic dysfunction. On exam, resting comfortably, noting she has pain only with movement of the left leg. Denies chest pain, SOB or palpitations RRR Revised Cardiac Risk score of 1-2 points for Hx of ischemic disease and diastolic dysfunction noted on last echo, which equates to a 6-10.1% risk of major cardiac event. Consider further cardiac eval preop. Holding home aspirin and praluent NPO, ortho eval for surgical repair, pain control Follow h/h postop Otherwise as above. I spent a total [id number] coordinating, documenting, and providing care for this patient excluding time spent in the performance of separately billed services
--- NOTE | 2024-10-04 14:00 | Electrocardiogram Report ---
Test Reason : Blood Pressure : */* mmHG Vent. Rate : 63 BPM Atrial Rate : 63 BPM P-R Int : 180 ms QRS Dur : 110 ms QT Int : 434 ms P-R-T Axes : 63 -30 -2 degrees QTcB Int : 444 ms Normal sinus rhythm Left axis deviation Minimal voltage criteria for LVH, may be normal variant ( [place] product ) Old Anterior infarct Abnormal ECG When compared with ECG of 21-May-2008 19:22, No significant change Confirmed by Lei Whitaker ([id number]) on 10/04/2024 1:59:49 PM Referred By: REFERRED SELF Confirmed By: Lei Whitaker
--- NOTE | 2024-10-04 14:39 | XRay Report ---
XR femur LT 2V routine CLINICAL HISTORY: fall. hip fx COMPARISON: Pelvis and hips same date FINDINGS: AP and lateral views of the left femur redemonstrate the nondisplaced intertrochanteric fr acture of the proximal left femur. There are no additional traumatic femoral lesions. There is no per iosteal reaction. There is pronounced arterial calcification. There is moderate to advanced tricompar tmental osteoarthritis of the knee joint most pronounced in the medial compartment. IMPRESSION: Nondisplaced intertrochanteric fracture redemonstrated. No additional femoral injury is a ppreciated. ACT 112: Negative or not required by law. Electronically signed by: Ana Lilia Mg M.D. 10/04/2024 2:38 PM
[2024-10-04] MEDS: MoRPHine SULFATE 2 MG/ML CARP IV STA (14:52)
[2024-10-04] MEDS: ACETAMINOPHEN 1,000 MG/100 ML VIAL IV STA (15:59)
[2024-10-04] MEDS ORDERED: GLUCOSE 40% GEL 15 GM TUBE PO PRN (16:18)
[2024-10-04] MEDS ORDERED: ONDANSETRON INJ 2 MG/ML 2 ML VIAL IV PRN (16:18)
[2024-10-04] MEDS ORDERED: bisacodyL 10 MG SUPP PR PRN (16:18)
[2024-10-04] MEDS ORDERED: MAGNESIUM HYDROXIDE SUSP 30 ML UDC PO PRN (16:18)
[2024-10-04] MEDS ORDERED: GLUCAGON FOR INJ 1 MG VIAL SQ PRN (16:18)
[2024-10-04] MEDS ORDERED: GLUCOSE 10 TAB/TUBE PO PRN (16:18)
[2024-10-04] MEDS ORDERED: NALOXONE HCL 0.4 MG/1 ML VIAL/CARP IV PRN (16:18)
[2024-10-04] MEDS ORDERED: MoRPHine SULFATE 2 MG/ML CARP IV PRN (16:18)
[2024-10-04] MEDS ORDERED: CARBOHYDRATES FOR HYPOGLYCEMIA PO PRN (16:18)
[2024-10-04] MEDS ORDERED: POLYETHYLENE (MIRALAX) 17 GM PACK PO PRN (16:18)
[2024-10-04] MEDS ORDERED: DEXTROSE 50% 50 ML SYRINGE IV PRN (16:18)
--- NOTE | 2024-10-04 18:10 | Orthopedic Consultation ---
Date of Consultation October 04, 2024 Assessment & Plan (1) Intertrochanteric fracture of left hip: (2) Fall: (3) Malignant neoplasm of upper-inner quadrant of left breast in female, estrogen receptor positive: (4) Tobacco use: (5) CAD (coronary artery disease): (6) Breast cancer: (7) Hypothyroidism: (8) Diabetes mellitus, type 2: (9) Myocardial Infarction: Amita Bob is a pleasant 73-year-old female who presents to the hospital today after a ground-level fall wherein she sustained a closed, traumatic, displaced left intertrochanteric hip fracture. I had a long discussion with the patient and her son who joins her at bedside today with regards to the nature of this injury. We discussed in great detail the anatomy, pathoanatomy, pathophysiology, treatment options. I expressed to them that in general, hip fractures in elderly patients are managed operatively in order to help with pain control and sooner ambulation. I expressed to them that hip fractures do often times represent "the beginning of the end" of the patient's life as they often times are sustained in patients who are beginning to deteriorate. I expressed this to them and very clear terms and they expressed understanding. I also expressed to them that even if hip fractures treated operatively, often times patients have a decrease in ambulatory/functional status. I explained to the patient and her son that considering she was walking without ambulatory aid, even after full recovery f rom a hip fracture, she may require ambulatory aid in the future. They expressed understanding to this. Given the patient's preoperative ambulatory status as well as her level of function, my recommendation is for closed versus open reduction and internal fixation of the left hip using a cephalomedullary nail. I explained to the patient and her son that there are risks with the surgery that include but are not limited to loss of life/limb, DVT, incomplete relief of pain, need for additional surgery, nonunion, malunion, hardware complication, hardware failure, infection, iatrogenic injury to bone/nerve/tendon/vessel, decrease in ambulatory status, and decrease in functional status. I explained to them that the alternatives to operative management be for nonoperative care, however the risks associate with nonoperative care include complications of immobilization such as decubitus ulcers, DVT, pneumonia. The benefits of operative intervention are for pain control and sooner ambulation. After thorough discussion of the risk, benefits, alternatives to surgical management, the patient and her son are interested in operative intervention. Patient has been n.p.o. since 9 AM this morning and we will proceed to the operating room upon OR availability. Please remain n.p.o. for now. She will be okay to start DVT prophylaxis following operative intervention. History of Present Illness Reason for Consultation: Left hip pain Attending Physician: Shayy Luong MD History of Present Illness Lisbeth is a very pleasant 73-year-old female who presents to the hospital today after a ground-level fall that occurred while she was walking into [place]. She states that she was going there to get lunch with her girlfriends and slipped and fell onto her left hip. She felt immediate pain and was unable to bear weight. She presented to the hospital where x-rays demonstrated a minimally displaced left intertrochanteric hip fracture for which I was consulted. History significnat for CAD, [place] in 2007 with complication of RCA dissection requiring bare-metal stent to ostium for stabilization, HTN, HLD, DM II, hypothyroidism, tobacco use, polycythemia, history of left breast CVA s/p lumpectomy, radiation, GERD, obesity On my evaluation, the patient notes that the left hip is the only area of concern for her. She states that at baseline she lives on her own and ambulates without the use of assistive device. She denies any pain except for in her left hip. She states that she is comfortable when lying flat. Allergies Allergy/AdvReac Type Severity Reaction Status Date / Time No Known Allergies Allergy Unknown Verified 10/04/24 13:43 Home Medications Medication Instructions Recorded Confirmed Type atorvastatin 80 mg tablet 80 mg PO QAM 06/13/18 10/04/24 History metoprolol tartrate 25 mg tablet 12.5 mg PO BID 06/13/18 10/04/24 History calcium carbonate (Calcium 600) 600 mg PO HS 11/23/18 10/04/24 History alirocumab 75 mg/mL subcutaneous 75 mg subcut Q14D 10/04/24 10/04/24 History pen injector (Praluent Pen) aspirin 81 mg tablet,delayed 81 mg PO QAM 10/04/24 10/04/24 History release duloxetine 60 mg capsule,delayed 60 mg PO QAM 10/04/24 10/04/24 History release levothyroxine 100 mcg tablet 100 mcg PO DAILYBB 10/04/24 10/04/24 History omeprazole 20 mg capsule,delayed 20 mg PO HS 10/04/24 10/04/24 History release semaglutide 0.25 mg or 0.5 mg (2 0.5 mg subcut WK 10/04/24 10/04/24 History mg/3 mL) subcutaneous pen injector (Ozempic) Patient History Medical History (Updated 10/04/24 @ 18:12 by Cyril Santoyo DO) Tobacco use CAD (coronary artery disease) Breast cancer Left - Diagnosed 05/24/18 Hypothyroidism Diabetes mellitus, type 2 Anxiety Myocardial Infarction CARDIAC CATH 2007 YEARS AGO WITH STENT to RCA. COMPLICATED BY PROXIMAL RCA DISSECTION TREATED WITH BMS. TX TO [facility] BUT DID NOT REQUIRE FURTHER INTERVENTION. CT 04/05/08 SHOWED NO FLOW DOWN RCA BUT APPEARANCE OF COLLATERALS. RPT CATH 2016 SHOWED IMPROVED FLOW IN RCA COMPARED TO 2007. Hyperlipidemia Arrhythmia FREQUENT PVCs noted on Holter 2016. Metoprolol was increased; hypomagnesemia was noted on labs, started on supplementation. Surgical History Status post left breast lumpectomy 06/30/18 - with SLN biopsy History of colonoscopy 2008 History of carpal tunnel release 2002 - B/L History of bilateral tubal ligation 1983 History of cardiac cath 2007 Family History Mother , Passed age 64 of asthma complications No problems noted. Father , Passed age 76 of hemochromotosis Lung cancer, Onset Age: 57 Had surgery and then was okay, was a smoker Sister , Passed age 55 of metastatic lung cancer (unknown primary) Lung cancer Sister , Passed age 59 of [place] No problems noted. Sister Multiple sclerosis Brother No problems noted. Son No problems noted. Social History Smoking Status: Current every day smoker Tobacco Type: Cigarettes Cigarettes Per Day: 1PPD X 30 YEARS; Second Hand Exposure: No; Do You Dip or Chew Tobacco: No; Hx Alcohol Use: Yes Alcohol type: beer Hx Substance Use: No Preferred Language: Finnish Communication Ability: Effective Visual Impairment: Limited Hearing Ability: Normal Dean Required: No Beliefs That Will Affect Care: None marital status: / Current Living Situation: Family Current Living Situation Comment: Lives with sister (takes care of her) current occupational status: retired current occupation: Retired at [employer] Feels Safe at Home: Yes caffeine: Yes (6 cups of coffee/day ) during the past year weight has: decreased > 10 lbs Assistive Devices: Denture - Upper, Denture - Lower and Glasses Review of Systems Review of Systems: All systems reviewed & are unremarkable except as noted in HPI & below Physical Exam Physical Exam: On physical examination, the patient is tender palpation about her left hip. She has pain with any attempted hip range of motion. She has positive logroll and heel strike. Her sensation is tact light touch throughout the lower extremity. She demonstrates active EHL/FHL/GSC/TA function. Her foot is warm and well-perfused. No open wounds appreciated. Results & Data Vital Signs (Past 12 Hours) Vital Signs Temp Pulse Pulse Resp BP BP Pulse Ox 10/04/24 18:07 36.7 C 72 18 108/68 95 10/04/24 17:00 36.6 C 75 16 100/51 L 95 10/04/24 16:35 72 10/04/24 16:00 36.7 C 73 16 110/50 L 96 10/04/24 15:00 36.5 C 72 18 151/94 H 95 10/04/24 14:39 70 18 144/113 H 98 10/04/24 13:39 97 10/04/24 13:39 36.4 C 70 13 129/62 97 10/04/24 13:39 36.4 C 70 16 129/62 97 10/04/24 12:42 61 10/04/24 12:33 62 14 99 10/04/24 12:23 36.4 C L 62 13 130/78 99 O2 Del Method O2 Flow Rate 10/04/24 18:07 Room Air 10/04/24 17:00 Room Air 10/04/24 16:35 10/04/24 16:00 Room Air 10/04/24 15:00 Room Air 10/04/24 14:39 Room Air 10/04/24 13:39 Room Air 10/04/24 13:39 Room Air 10/04/24 13:39 Room Air 0 10/04/24 12:42 10/04/24 12:33 Room Air 10/04/24 12:23 Room Air Diagnostic Findings X-rays left hip, pelvis and left femur were personally interpreted and reviewed. These demonstrate a left intertrochanteric hip fracture without additional acute osseous abnormality. No suspicious bony lesions appreciated.
[2024-10-04] MEDS: INSULIN ASPART PER UNIT CHARGE SC SCH (18:17)
[2024-10-04] MEDS: ACETAMINOPHEN 500 MG TAB PO SCH (18:18)
[2024-10-04] MEDS: SODIUM CHLORIDE 0.9% 1,000 ML IV SCH (18:21)
--- NOTE | 2024-10-04 19:37 | Anesthesiology Consultation ---
Date of Service October 04, 2024 Assessment & Plan Chart Review Chart Review: Acceptable Risk for Surgery and Patient NOT seen in Pre Admission Testing Consults Requested none History Surgery Operation Date: 10/04/24 20:00 Proposed Procedures p Intramedullary George Femur(Left) - Cyril Santoyo DO Height/Weight Height: 5 ft 5 in Weight: 88.2 kg Allergies Allergy/AdvReac Type Severity Reaction Status Date / Time No Known Allergies Allergy Unknown Verified 10/04/24 13:43 Medications Home Medications Medication Instructions Recorded Confirmed Last Taken atorvastatin 80 mg tablet 80 mg PO QAM 06/13/18 10/04/24 10/04/24 metoprolol tartrate 25 mg tablet 12.5 mg PO BID 06/13/18 10/04/24 10/03/24 calcium carbonate (Calcium 600) 600 mg PO HS 11/23/18 10/04/24 10/03/24 alirocumab 75 mg/mL subcutaneous 75 mg subcut Q14D 10/04/24 10/04/24 1 Week Ago pen injector (Praluent Pen) ~09/27/24 aspirin 81 mg tablet,delayed 81 mg PO QAM 10/04/24 10/04/24 10/04/24 release duloxetine 60 mg capsule,delayed 60 mg PO QAM 10/04/24 10/04/24 10/04/24 release levothyroxine 100 mcg tablet 100 mcg PO DAILYBB 10/04/24 10/04/24 10/04/24 omeprazole 20 mg capsule,delayed 20 mg PO HS 10/04/24 10/04/24 10/03/24 release semaglutide 0.25 mg or 0.5 mg (2 0.5 mg subcut WK 10/04/24 10/04/24 09/28/24 mg/3 mL) subcutaneous pen injector (Ozempic) Active Medications Generic Name Dose Route Start Last Admin Trade Name Freq PRN Reason Stop Dose Admin Acetaminophen 1,000 mg 10/04/24 17:00 10/04/24 18:18 Acetaminophen 500 Mg Tab PO 11/03/24 16:59 1,000 mg Q8H VALERIA Administration Sodium Chloride 1,000 mls @ 125 mls/hr 10/04/24 17:15 10/04/24 18:21 Nss IV 10/05/24 01:14 125 mls/hr .Q8H VALERIA Administration Insulin Aspart 0 units 04/02/25 18:00 10/04/24 18:17 Insulin Aspart Per Unit Charge SC 11/03/24 17:59 Not Given Q6 [facility] Past Medical History Medical History (Updated 10/04/24 @ 18:12 by Cyril Santoyo DO) Tobacco use CAD (coronary artery disease) Breast cancer Left - Diagnosed 05/24/18 Hypothyroidism Diabetes mellitus, type 2 Anxiety Myocardial Infarction CARDIAC CATH 2007 YEARS AGO WITH STENT to RCA. COMPLICATED BY PROXIMAL RCA DISSECTION TREATED WITH BMS. TX TO [facility] BUT DID NOT REQUIRE FURTHER INTERVENTION. CT 04/05/08 SHOWED NO FLOW DOWN RCA BUT APPEARANCE OF COLLATERALS. RPT CATH 2016 SHOWED IMPROVED FLOW IN RCA COMPARED TO 2007. Hyperlipidemia Arrhythmia FREQUENT PVCs noted on Holter 2017. Metoprolol was increased; hypomagnesemia was noted on labs, started on supplementation. Past Family History Family History Mother , Passed age 64 of asthma complications No problems noted. Father , Passed age 76 of hemochromotosis Lung cancer, Onset Age: 57 Had surgery and then was okay, was a smoker Sister , Passed age 55 of metastatic lung cancer (unknown primary) Lung cancer Sister , Passed age 59 of [place] No problems noted. Sister Multiple sclerosis Brother No problems noted. Son No problems noted. Past Surgical History Surgical History Status post left breast lumpectomy 06/30/18 - with SLN biopsy History of colonoscopy 2008 History of carpal tunnel release 2002 - B/L History of bilateral tubal ligation 1984 History of cardiac cath 2007 Social History Smoking Status: Current every day smoker tobacco type: cigarettes Smoking cigarettes per day: 1PPD X 30 YEARS Do You Dip or Chew Tobacco: No Hx Alcohol Use: Yes Alcohol type: beer alcohol intake frequency: holidays/special occasions only Hx Substance Use: No substance use type: does not use Physical Exam Vital Signs Last Vital Signs Temp 36.7 C 10/04/24 18:07 Pulse 72 10/04/24 18:07 Resp 18 10/04/24 18:07 BP 108/68 10/04/24 18:07 Pulse Ox 95 10/04/24 18:07 O2 Del Method Room Air 10/04/24 18:07 O2 Flow Rate 0 10/04/24 13:39 Testing Laboratory Results 10/04/24 12:25 10/04/24 12:25 PT 10.3 Seconds (9.0-12.0) 10/04/24 12: INR 0.9 (0.9-1.1) 10/04/24 12:25 APTT 24 Seconds (21-31) 10/04/24 12:25 10/04/24 10/04/24 19:26 18:17 POC Glucose 114 H 113 H
[2024-10-04] MEDS: ceFAZolin 2000MG 2,000 MG/15 ML SYR IV SCH (20:13)
[2024-10-04] MEDS: METOPROLOL TARTRATE 25 MG TAB PO SCH (20:14)
[2024-10-04] MEDS: PANTOprazole 40 MG TAB PO SCH (21:11)
[2024-10-04] MEDS: DOCUSATE SODIUM 100 MG CAP PO SCH (21:11)
[2024-10-04] MEDS: CALCIUM 600MG + VIT D 400 IU TAB PO SCH (21:11)
--- OUTSIDE RECORDS SUMMARY | 2024-10-04 22:29 | External Medical Summary | Summary of Care ---
Author Name Unknown Organization [facility] Address [address] [place] [address] Phone [phone] Care Team Providers Care Trimmer Helper Name Role Phone Radha Mccormick MD Primary Care Prov ider Reason for Visit * Reason Onset Date Comments Advice 09/22/2024 Encounter Details Date Type Department Care Team (Late st Contact Info) Description 09/22/2024 Telephone Family Medicine [address] [phone] Ron Quevedo [address] [place] [address] Advice Allergies No known active allergiesdocumented as of this encounter (statuses as of 09/25/2024) Medications ASPIRIN 81 MG PO TABS 1 TABLET DAILY 30 5 05/02/20 08 Active Magnesium Oxide 400 MG Capsule Take 1 Capsule by mouth in the morning. 12/24/19 17 Active Calcium Carbonate 600 MG Oral Tablet Take 1 Tablet by mouth in the morning. Active Nitroglycerin 0.4 MG Sublingual Tablet Sublingual (Nitrostat)Indicat ions:ASCVD (arteriosclerotic cardiovascular disease) DISSOLVE 1 TABLET UNDER TONGUE EVERY 5 MINUTES UP TO 3 DOSES NEEDED FOR CHEST PAIN. 25 Tablet 3 06/15/20 23 Active Additional Information Patient not taking.Reported on 09/18/2024 Atorvastatin Calcium 80 MG Oral Tablet (Lipitor)Indicatio ns:Dyslipidemia, goal LDL below 70 TAKE ONE TABLET BY MOUTH EVERY DAY 90 Tablet 3 01/14/20 24 Active Metoprolol Tartrate 25 MG Oral Tablet (Lopressor)Indicat ions:ASCVD (arteriosclerotic cardiovascular disease) Take 0.5 Tablets by mouth in the morning and 0.5 Tablets before bedtime. 01/24/20 24 Active Fluticasone Propionate 50 MCG/ACT Nasal Suspension (Flonase) Administer 2 Sprays into each nostril in the morning. 16 mL 2 04/17/20 24 Active Ozempic (0.25 or 0.5 MG/DOSE) 2 MG/3ML Solution Pen-injector (Semaglutide(0.25 or 0.5MG/DOS)) Inject 0.5 mg under the skin once a week. 9 mL 3 09/18/2024 9:28 AM EDT 05/25/20 24 Active Praluent 75 MG/ML Subcutaneous Solution Auto-injector (Alirocumab) Inject 75 mg (1 pen) under the skin every 14 days. 6 mL 3 09/13/2024 9:08 AM EDT 06/27/20 24 Active Levothyroxine Sodium 112 MCG Oral Tablet (Levoxyl) Take 1 Tablet by mouth in the morning. (at least 30 min prior to breakfast or other meds). 90 Tablet 1 07/04/20 24 Active DULoxetine HCl 60 MG Oral Capsule Delayed Release Particles (Cymbalta)Indicati ons:Mild episode of recurrent major depressive disorder (HCC) Take 1 Capsule by mouth in the morning. Do not cut, crush or chew. 90 Capsule 3 07/12/19 25 Active Omeprazole 20 MG Oral Capsule Delayed Release (PriLOSEC) TAKE ONE CAPSULE BY MOUTH AT BEDTIME 31 Capsule 3 07/12/19 25 Active documented as of this encounter (statuses as of 09/25/2024) Active Problems Problem Noted Date Diagnosed Date Severe obesity with body mas s index (BMI) of 35.0 to 39.9 with serious comorbidity 2023 Family history of hemochromatosis 2023 Stress incontinence of urine 06/04/2023 Type 2 diabetes mellitus wit h hemoglobin A1c goal of less than 7.0% 12/03/2022 History of left breast cancer 09/02/2022 Mild episode of recurrent major depressive disor tiffanie 11/14/2021 Hoarseness of voice 05/16/2021 Lactose intolerance 05/16/2021 Obesity, Class I, BMI 30.0-34.9 (see actual BMI) 05/16/2021 Stented coronary artery 09/01/2011 Lump or mass in breast 09/01/2011 Overview (09/01/2011): 08/16 mammo-WNL. Likely fatty. 9 oclock left breast. 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 Start rx 07/16 GRIFFIN deferred due to low BP ICD-10 update of inactive term Hyperlipidemia with target LDL less than 70 02/2009 Old myocardial infarct 01/24/2009 Overview (07/30/2011): ASCVD, March 13, 2008 inferoposterior GA. Emergent catheterization at that time ([facility] - occluded RCA, 25% left main, 25% proximal LAD, 25% lesion in the AV groove of the LCX just before the 2nd OM, and a 90% followed by a 70% stenosis of the proximal OM#3. The PDA appeared large & filled via left to right collaterals) was complicated by RCA dissection requiring bare-metal stenting to the ostium for stabilization. [place] [facility] [place] did not require further intervention. Follow-up CT scan on 04/05/2008 revealed a stent to the RCA that was completely occluded with reconstitution of flow in the distal RCA via collaterals. The finding were considered to be stable when compared to the CT from 03/15/2008 [place] [facility]. No aortic dissection observed. Moderate CAD observed via CT with follow up stress testing last performed in August 2009 showing no evidence of pharmacologically induced myocardial ischemia at 101% age-predicted maximum heart rate. LV systolic function was preserved with an EF of 55 to 60% with moderate inferior wall hypokinesis at rest and fixed with stress. ASCVD (arteriosclerotic cardiovascular disease) 09/12/2008 Tobacco use disorder 09/12/2008 Acquired hypothyroidism 03/15/2003 documented as of this encounter (statuses as of 09/25/2024) Resolved Problems Problem Noted Date Diagnosed Date Resolved Date Menopause 05/16/2021 12/03/2022 Routine general medical exam ination at a health care facility 07/30/2011 12/03/2022 Overview (09/22/2013): 09/15 unable to afford Zoster. Declined mammo this year-consider next y 11/14 colonoscopy--One 7 mm polyp at the ileocecal valve. Resected and Retrieved.& Five 4 to 6 mm polyps in the transverse colon. Path: --hyperplastic polyps 10/15 eye ordered. D/c fenofibrate due to myalgias 10/15 nuclear stress +normal EF, +wall motion abnormalities with old GA Lives w/ her 2 sisters--one with progressive MS (in bed), other is blind/deaf-had GA, smokes, can speak. History of diabetes mellitus, type II 07/15/2011 12/03/2022 F/u of acute inferior myocardial infarction 09/12/2008 01/24/2009 Overview (01/24/2009): Modified by Acute GA Protocol #5. Dyslipidemia, goal to be determined 09/12/2008 06/11/2009 Overview (06/11/2009): Per Lipid Taxonomy. Tobacco use disorder 012 documented as of this encounter (statuses as of 09/25/2024) Immunizations Name Administration Dates Next Due COVID-19, LNP-s, No Preserve , Osvaldo-sucrose, Ages 12+ (Pfizer) 11/18/2021,05/13/2021,10/09/2020,09/02 COVID-19, MRNA-LNP, PF, 30 M CG/0.3 mL, 12 YRS AND ABOVE, IM (PFIZER-Comirnaty) 04/10/2024,2023,04/08/2023 Covid-19, Mrna, Lnp-s, Pf, B ivalent, 30 Mcg, IM, 12 yrs and above (Pfizer) 07/16/2022 Hepatitis B, 20+ yrs 04/17/2024,10/19/2023,09/14 Influenza, Whole Virus 05/13/1999 0 Pneumococcal Conjugate Vacc, 13 Valent (Prevnar) 05/16/2021 Pneumococcal Conjugate Vacci ne, 20-valent ([id number]) 06/02/2022 Pneumococcal Polysaccharide PPV23 (Pneumovax) 07/01/2011,05/19/2011 RSV Vac., Recomb, Adjuvant, PF,0.5 Ml (Arexvy) 2023 Seasonal Influenza Vac., MDV , IM, 0.5 mL (Fluzone) 04/19/2013,04/05/2012,04/04/2011 Seasonal Influenza, High Dos e, Trivalent, PF, IM (Fluzone HD) 04/10/2024,04/04/2020 Seasonal Influenza, Quadriva lent Hd (Fluzone Hd) 03/16/2023,04/07/2022,05/16/2021 Seasonal Influenza, Quadriva lent, No Preserve, IM 04/09/2014,05/16/2013,04/19/2013,08/2011,04/28/2011,04/04/2011,04/29/20 10,04/02/2009,04/30/2008,04/05/2007,1 ,04/15/2005,05/01/2004,05/13 TDAP (age 10 and older)(Boostrix) 03/16/2023, TDAP, Age 7 and older, IM (Adacel) 09/01/2011 Zoster Vaccine Recombinant (Shingrix) 07/13/2019 ,04/12/2019 documented as of this encounter Social History Tobacco Use Types Packs/Day Years Used Date Smoking Tobacco: Every Day Cigarettes 1.5 43 Started: 10/04/2023 Smokeless Tobacco: Never Comments:started age 24 Alcohol Use Standard Drinks/Week Comments Yes 3 (1 standard drink = 0.6 oz pure alcohol) once a week or social a couple beers PHQ-2 Answer Date Recorded PHQ Adult Total Score 0 04/10/2024 Hunger Vital Sign Answer Date Recorded Within the past 12 months, y ou worried that your food would run out before you got the money to buy more. Never true 04/10/20 24 Within the past 12 months, t he food you bought just didn't last and you didn't have money to get more. Never true 04/10/2024 Childcare Answer Date Recorded Do you feel overwhelmed with taking care of a child, family member or friend? No 04/10/2024 Does your family need help f inding childcare? (Household - for ages 0-17 years) Not on file 04/10/2024 Clothing Answer Date Recorded Have you been unable to get clothing when it was really needed? No 04/10/2024 Is your family able to get c lothes or diapers when needed? (Household - for ages 0-17 years) Not on file 04/10/2024 Personal Safety Answer Date Recorded Do you feel unsafe or have concerns for your saf ety? No 04/10/2024 Do you have concerns for you r family's safety? (Household - for ages 0-17 years) Not on file 04/10/2024 Utilities Answer Date Recorded Do you have trouble paying y our heating, water, or electric bill? No 04/10/2024 Is your family able to pay t he heat, water, or electric bill? (Household - for ages 0-17 years) Not on file 04/10/2024 Does your family have access to good internet? (Household - for ages 0-17 years) Not on file 04/10/2024 Employment Status Answer Date Recorded Are you unemployed or without regular income? No 04/10/2024 Does the household have a re gular source of income? (Household - for ages 0-17 years) Not on file 04/10/2024 Social Connections Answer Date Recorded How often do you feel lonely or isolated from th ose around you? Never 04/10/2024 Financial Resource Strain Answer Date R ecorded Do you have any trouble payi ng for your medications, or do you think you might in the future? No 04/10/2024 Does your family have troubl e paying for medicine? (Household - for ages 0-17 years) Not on file 04/10/2024 Transportation Needs Answer Date Record ed Do you have trouble getting a ride to medical visits or work? (Adult - for ages 18 years and over) Not on file 04/10/2024 Does your family have a hard time getting a ride to doctors visits? (Household - for ages 0-17 years) Not on file 04/10/2024 Has lack of transportation k ept you from medical appointments, meetings, work, or from getting things needed for daily living? Check all that apply. No 04/10/2024 Do you (or your family) have trouble finding or paying for a ride (transportation)? (Household - for ages 0-17 years) Not on file 04/10/2024 Housing Stability Answer Date Recorded Do you currently live in a s helter or have no steady place to sleep at night? No 04/10/2024 Do you think you are at risk of becoming homeless? (Adult - for ages 18 years and over) Not on file 04/10/2024 Does your family worry about paying for your home or becoming homeless? (Household - for ages 0-17 years) Not on file 1 Are you homeless or worried that you might be in the future? No 04/10/2024 Are you (or your family) maureen eless or worried that you might be in the future? (Household - for ages 0-17 years) Not on file Food Insecurity Answer Date Recorded Do you need food for this week? No 04/10/2024 Are you able to get enough f ood for your family? (Household - for ages 0-17 years) Not on file 04/10/2024 Does your family need food t his week? (Household - for ages 0-17 years) Not on file 04/10/2024 Do you always have enough fo od for your family? (Household - for ages 0-17 years) Not on file 04/10/2024 Food Insecurity Answer Date Recorded Within the past 12 months, y ou worried that your food would run out before you got the money to buy more. Never true 04/10/20 24 Within the past 12 months, t he food you bought just didn't last and you didn't have money to get more. Never true 04/10/2024 Do you need food for this week? No 04/10/2024 Comments No Sex and Gender Information Value Date Recorded Sex Assigned at Female 04/07/2022 9:12 AM EDT Legal Sex Female 5:27 AM EST Gender Identity Female 04/07/2022 9:12 AM EDT Sexual Orientation Straight 04/07/2022 9: 12 AM EDT Occupation Industry Job Start Date Job End Date disabled Not on file Not on file Not on file documented as of this encounter Miscellaneous Notes * Telephone Encounter - Bina Swenson CMA - 09/25/2024 9:12 AM EDT Unable to leave message as I received message asking "to please enter access code" * Telephone Encounter - Ron Quevedo CRNP - 09/25/2024 8:24 AM EDT It looks like she is seeing cardiology tomorrow and Dr. Myers in October. I will defer to them to determine if they would like her to have labs prior to her appointments. Thanks! * Telephone Encounter - Bina Swenson CMA - 09/22/2024 3:30 PM EDT See message * Telephone Encounter - Christy Flynn OSA - 09/22/2024 1:10 PM EDT Patient stopped in for lab work, and there are no orders in her chart. She was told she should havebloodwork done before her next appointment. Please contact patient to follow up. Thank you. documented in this encounter Plan of Treatment Upcoming Encounters Date Type Department Care Team (Latest Contact Info) Description 09/26/2024 9:30 AM EDT Office Visit Cardiology [address] [place] [address] Lázaro Bolton PA-C [address] [facility] [place] [address] 10/11/2024 1:00 PM EDT Office Visit Family Medicine [address] [place] [phone] Radha Mccormick MD [address] [place] [address] [place] [address] 11/14/2024 9:30 AM EDT Hospital Encounter ENDO [facility], Endoscopy Room [facility] [address] [place] [phone] Lázaro Herrmann MD [address] [place] [address] 11/14/2024 9:30 AM EDT - 11/14/2024 10:00 AM EDT Surgery ENDO [facility], Endoscopy Room [facility] [address] [place] [phone] Lázaro Herrmann MD [address] [place] [address] COLONOSCOPY FLEXIBLE PROXIMAL DIAGNOSTIC 11/16/2024 8:30 AM EDT Office Visit Cardiology [address] [place] [address] Lázaro Bolton PAAlma [address] [place] [address] 12/14/2024 9:15 AM EDT Office Visit Orthopaedics [facility] [address] [place] [address] Attila Belcher PA-C [address] [place] [phone] 01/23/2025 3:30 PM EDT Office Visit Hematology/[facility] [place] [address] [facility] [place] [address] Myla Carlton, IRAIS [address] [place] [address] 04/12/2025 9:00 AM EDT Nurse Only Ancillary [address] [place] [address] [place], Nurse Annual Wellness [address] [place] [address] [place] [id number] Scheduled Procedures Name Priority Associated Diagnoses Date/Ti nd COLONOSCOPY FLEXIBLE PROXIMAL DIAGNOSTIC Recall History of colon polyps Special screening for malignant neoplasms, colon 11/14/2024 9:30 AM EDT Health Maintenance Due Date Last Done Comments DISCUSS TOBACCO CESSATION (REFER TO SMARTSET #6487) 1952 Cologuard 1997 Fecal Occult Blood Test 1997 Sigmoidoscopy 1997 Colonoscopy 09/17/2023 09/16/2020, 09/02, 11/14/2012, Additional history exists Colorectal Cancer Screening 09/17/2023 COVID-19 Vaccine ( season) 2024 04/10/2024, 2023, 04/08/2023, Additional history exists Diabetic Foot Exam 12/20/2024 2023, 0 12/03/2022, 02/18/2022, Additional history exists HbA1c 2024 06/22/2024, 08/06, 03/01/2023, Additional history exists Diabetic Eye Exam 02/23/2025 02/24/2024, , 10/29/2023, Additional history exists Adult Wellness Visit 04/10/2025 04/10/2024, 04/08/2023, 04/07/2022 Depression Monitoring 04/10/2025 04/10/2024 Albumin/Creatinine Ratio 06/22/2025 024, 09/15/2023, 06/02/2022, Additional history exists GFR 06/22/2025 06/22/2024, 10/03, 09/02/2023, Additional history exists TSH 06/22/2025 06/22/2024, 0 09/2023, 12/08/2023, Additional history exists Mammogram 09/13/2025 09/13/2024, 0 12/2023, 09/08/2023, Additional history exists DXA Scan 10/08/2028 10/08/2021, 040 12/2021, 11/22/2018, Additional history exists DTap/Tdap Vaccines (4 - Td or Tdap) 03/16/2033 03/16/2023, 09/01/2011, 09/01/2011 Zoster Vaccines Completed 07/13/2019, 04/12/2019 RETIRED - COLONOSCOPY-ANNUAL AGES 18-100 Discontinued 09/16/2020, 09/16/2020, 11/16/2012, Additional history exists Pneumococcal Vaccine: 50+ Years Completed 06/02/2022, 05/16/2021, 04/16/2020, Additional history exists Lung Cancer Screening Completed 01/10/2024 , 01/06/2023, 01/01/2022, Additional history exists Influenza Vaccine (FLU shot) Completed 04/10/2024, 03/16/2023, 04/07/2022, Additional history exists Hepatitis B Vaccine Completed 04/17/2024, 10/19/2023, 09/15/2023 HPV (Gardasil) Vaccine Aged Out No lo nger eligible based on patient's age to complete this topic MENINGOCOCCAL (MENACTRA/MENVEO) Aged Out No longer eligible based on patient's age to complete this topic Meningitis B Vaccine (Bexsero/Trumemba) Aged Out No longer eligible based on patient's age to complete this topic documented as of this encounter Medical Devices Not on filedocumented as of this encounter Care Teams Trimmer Helper Relationship Specialty Start Date End Date Radha Mccormick MD [address] [place] [address] [place] [id number] PCP - General Family Medicine 09/25/24 documented as of this encounter
--- OUTSIDE RECORDS SUMMARY | 2024-10-04 22:29 | External Medical Summary | Summary of Care ---
Author Name Unknown Organization [facility] Address [address] [facility] [address] Phone [phone] Care Team Providers Care Veterinary Hospital Attendant Name Role Phone Radha Mccormick MD Primary Care Prov ider Reason for Visit * Reason Onset Date Comments Advice 09/22/2024 Encounter Details Date Type Department Care Team (Late st Contact Info) Description 09/22/2024 Telephone Family Medicine [address] [phone] Ron Quevedo [address] [place] [address] Advice Allergies No known active allergiesdocumented [...] Overview (07/30/2011): ASCVD, March 13, 2008 inferoposterior [place]. Emergent catheterization at that time ([facility] - occluded RCA, 25% left main, [...] ostium for stabilization. She was transferred to [facility] though did not require further intervention. Follow-up CT scan on 04/05/2008 revealed a stent to the RCA that was completely occluded with reconstitution of flow in the distal RCA via collaterals. The finding were considered to be stable when compared to the CT from 03/15/2008 from [facility]. No aortic dissection observed. Moderate CAD observed [...] +normal EF, +wall motion abnormalities with old [place] Lives w/ her 2 sisters--one with progressive MS (in bed), other is blind/deaf-had [place], smokes, can speak. History of diabetes mellitus, type II 07/15/2011 12/03/2022 F/u of acute inferior myocardial infarction 09/12/2008 01/24/2009 Overview (01/24/2009): Modified by Acute [place] Protocol #5. Dyslipidemia, goal to be determined [...] (Prevnar) 05/16/2021 Pneumococcal Conjugate Vacci ne, 20-valent ([id number]) 06/02/2022 Pneumococcal Polysaccharide PPV23 (Pneumovax) 07/01/2011,05/19/2011 RSV [...] 09/26/2024 9:30 AM EDT Office Visit Cardiology [address] [place] [address] Lázaro Bolton PA-C [address] [facility] [place] [address] 10/11/2024 1:00 PM EDT Office Visit Family Medicine [address] [place] [phone] Radha Mccormick MD [address] [place] [address] [place] [address] 11/14/2024 9:30 AM EDT Hospital Encounter ENDO [facility], Endoscopy Room [facility] [address] [place] [phone] Lázaro Herrmann MD [address] [place] [address] 11/14/2024 9:30 AM EDT - 11/14/2024 10:00 AM EDT Surgery ENDO [facility], Endoscopy Room [facility] [address] [place] [phone] Lázaro Herrmann MD [address] [place] [address] COLONOSCOPY FLEXIBLE PROXIMAL DIAGNOSTIC 11/16/2024 8:30 AM EDT Office Visit Cardiology [address] [place] [address] Lázaro Bolton PAAlma [address] [place] [address] 12/14/2024 9:15 AM EDT Office Visit Orthopaedics [facility] [address] [place] [address] Attila Belcher PA-C [address] [place] [phone] 01/23/2025 3:30 PM EDT Office Visit Hematology/Oncology [facility] [place] [address] [facility] [place] [address] Myla [place], IRAIS [address] [place] [address] 04/12/2025 9:00 AM EDT Nurse Only Ancillary [address] [place] [address] [place], Nurse Annual Wellness [address] [place] [address] [place] [address] Scheduled Procedures Name Priority Associated Diagnoses Date/Ti ne COLONOSCOPY FLEXIBLE PROXIMAL DIAGNOSTIC Recall History of colon polyps Special screening for malignant neoplasms, colon 11/14/2024 9:30 AM EDT Health Maintenance Due Date Last Done Comments DISCUSS TOBACCO CESSATION (REFER TO SMARTSET #2163) 1950 Cologuard 1997 Fecal Occult Blood Test [...] filedocumented as of this encounter Care Teams Veterinary Hospital Attendant Relationship Specialty Start Date End Date Radha Mccormick MD [address] [place] [address] [place] [address] PCP - General Family Medicine 09/25/24 documented as of this encounter
--- OUTSIDE RECORDS SUMMARY | 2024-10-04 22:29 | External Medical Summary | Summary of Care ---
Author Name Unknown Organization [facility] Address [address] [facility] [place] [address] Phone [phone] Care Team Providers Care Radiological Defense Officer Name Role Phone Radha Mccormick MD Primary Care Prov ider Reason for Visit * Reason Onset Date Comments Advice 09/22/2024 Encounter Details Date Type Department Care Team (Late st Contact Info) Description 09/22/2024 Telephone Family Medicine [address] [phone] Ron Quevedo [address] [place] [address] Advice Allergies No known active allergiesdocumented as of this encounter (statuses as of 09/26/2024) Medications ASPIRIN 81 MG PO TABS 1 [...] Tablet (Lopressor)Indicat ions:ASCVD (arteriosclerotic cardiovascular disease) Take 1 Tablet by mouth in the morning and 1 Tablet before bedtime. 01/24/20 24 Active Fluticasone Propionate [...] as of this encounter (statuses as of 09/26/2024) Active Problems Problem Noted Date Diagnosed Date [...] Overview (07/30/2011): ASCVD, March 13, 2008 inferoposterior [place]. Emergent catheterization at that time ([facility] - occluded RCA, 25% left main, [...] ostium for stabilization. She was transferred to [facility] though did not require further intervention. Follow-up CT scan on 04/05/2008 revealed a stent to the RCA that was completely occluded with reconstitution of flow in the distal RCA via collaterals. The finding were considered to be stable when compared to the CT from 03/15/2008 from [facility]. No aortic dissection observed. Moderate CAD observed [...] as of this encounter (statuses as of 09/26/2024) Resolved Problems Problem Noted Date Diagnosed Date [...] +normal EF, +wall motion abnormalities with old [place] Lives w/ her 2 sisters--one with progressive MS (in bed), other is blind/deaf-had [place], smokes, can speak. History of diabetes mellitus, type II 07/15/2011 12/03/2022 F/u of acute inferior myocardial infarction 09/12/2008 01/24/2009 Overview (01/24/2009): Modified by Acute [place] Protocol #5. Dyslipidemia, goal to be determined 09/12/2008 06/11/2009 Overview (06/11/2009): Per Lipid Taxonomy. Tobacco use disorder 012 documented as of this encounter (statuses as of 09/26/2024) Immunizations Name Administration Dates Next Due COVID-19, LNP-s, No Preserve , Osvaldo-sucrose, Ages 12+ (Pfizer) 11/18/2021,05/13/2021,10/09/2020,09/02 COVID-19, MRNA-LNP, PF, 30 M CG/0.3 mL, 12 YRS AND ABOVE, IM (PFIZER-Comirnat) 04/10/2024,2023,04/08/2023 Covid-19, Mrna, Lnp-s, Pf, B ivalent, 30 Mcg, IM, 12 yrs and above (Pfizer) 07/16/2022 Hepatitis B, 20+ yrs 04/17/2024,10/19/2023,09/14 Influenza, Whole Virus 05/13/1999 0 Pneumococcal Conjugate Vacc, 13 Valent (Prevnar) 05/16/2021 Pneumococcal Conjugate Vacci ne, 20-valent ([id number]) 06/02/2022 Pneumococcal Polysaccharide PPV23 (Pneumovax) 07/01/2011,05/19/2011 RSV [...] file Not on file Not on file Travel History Travel Start Travel End [place] 08/26/2024 09/02/2024 documented as of this encounter Miscellaneous Notes [...] Department Care Team (Latest Contact Info) Description 10/11/2024 1:00 PM EDT Office Visit [address] [phone] Radha Mccormick MD [address] [place] [address] [place] [address] 11/14/2024 9:30 AM EDT Hospital Encounter ENDO [facility], Endoscopy Room [facility] [address] [place] [phone] Lázaro Herrmann MD [address] [place] [address] 11/14/2024 9:30 AM EDT - 11/14/2024 10:00 AM EDT Surgery ENDO [facility], Endoscopy Room [facility] [address] [place] [phone] Lázaro Herrmann MD [address] [place] [address] COLONOSCOPY FLEXIBLE PROXIMAL DIAGNOSTIC 11/16/2024 8:30 AM EDT Office Visit Cardiology [address] [place] [address] Lázaro Bolton PAAmishaC [address] [place] [address] 12/14/2024 9:15 AM EDT Office Visit Orthopaedics [facility] [address] [place] [address] Attila Belcher PA-C [address] [place] [phone] 01/23/2025 3:30 PM EDT Office Visit Hematology/Oncology [facility] [place] [address] [facility] [place] [phone] Myla [place] CRNP [address] [place] [address] 04/12/2025 9:00 AM EDT Nurse Only Ancillary [address] [place] [address] [place], Nurse Annual Wellness [address] [place] [address] [place] [address] 08/09/2025 10:30 AM EST Office Visit Cardiology [address] [place] [address] Lázaro Bolton PA-C [address] [place] [address] Scheduled Procedures Name Priority Associated Diagnoses Date/Ti me COLONOSCOPY FLEXIBLE PROXIMAL DIAGNOSTIC Recall History of colon polyps Special screening for malignant neoplasms, colon 11/14/2024 9:30 AM EDT Health Maintenance Due Date Last Done Comments DISCUSS TOBACCO CESSATION (REFER TO SMARTSET #0798) 1950 Cologuard 1997 Fecal Occult Blood Test [...] Additional history exists DXA Scan 10/08/2028 10/08/2021, 0 12/2021, 11/22/2018, Additional history exists DTap/Tdap Vaccines [...] filedocumented as of this encounter Care Teams Radiological Defense Officer Relationship Specialty Start Date End Date Radha Mccormick MD [address] [place] [address] [place] [address] PCP - General Family Medicine 09/25/24 documented as of this encounter
--- OUTSIDE RECORDS SUMMARY | 2024-10-04 22:29 | External Medical Summary | Summary of Care ---
Author Name Unknown Organization [facility] Address [address] [facility] [address] Phone [phone] Care Team Providers Care Dry Mixer Name Role Phone Radha Mccormick MD Primary Care Prov ider Reason for Visit * Reason Comments Outpatient Testing Encounter Details Date Type Department Care Team (Late st Contact Info) Description 09/26/2024 10:10 AM EDT Laboratory Laboratory [address] [place] [phone] [place] [address] Acquired hypothyroidism Allergies No known active allergiesdocumented as of [...] Active Additional Information Patient not taking.Reported on 09/26/2024 Atorvastatin Calcium 80 MG Oral Tablet (Lipitor)Indicatio [...] or mass in breast 09/01/2011 Overview (09/01/2011): 2 mammo-WNL. Likely fatty. 9 oclock left breast. 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 Start rx 07/16 GRIFFIN deferred due to low BP ICD-10 update of inactive term Hyperlipidemia with target LDL less than 70 02/2009 Old myocardial infarct 01/24/2009 Overview (07/30/2011): ASCVD, March 13, 2008 inferoposterior [place]. Emergent catheterization at that time ([facility] - occluded RCA, 25% left main, [...] ostium for stabilization. She was transferred to [facility] though did not require further intervention. Follow-up CT scan on 04/05/2008 revealed a stent to the RCA that was completely occluded with reconstitution of flow in the distal RCA via collaterals. The finding were considered to be stable when compared to the CT from 03/15/2008 from [facility]. No aortic dissection observed. Moderate CAD observed [...] +normal EF, +wall motion abnormalities with old [place] Lives w/ her 2 sisters--one with progressive MS (in bed), other is blind/deaf-had [place], smokes, can speak. History of diabetes mellitus, type II 07/15/2011 12/03/2022 F/u of acute inferior myocardial infarction 09/12/2008 01/24/2009 Overview (01/24/2009): Modified by Acute [place] Protocol #5. Dyslipidemia, goal to be determined 09/12/2008 06/11/2009 Overview (06/11/2009): Per Lipid Taxonomy. Tobacco use disorder 012 documented as of this encounter (statuses as of 09/26/2024) Immunizations Name Administration Dates Next Due COVID-19, LNP-s, No Preserve , Osvaldo-sucrose, Ages 12+ (Pfizer) 11/18/2021,05/13/2021,10/09/2020,09/18 COVID-19, MRNA-LNP, PF, 30 M CG/0.3 mL, 12 YRS AND ABOVE, IM (PFIZER-Comirnaty) 04/10/2024,2023,04/08/2023 Covid-19, Mrna, Lnp-s, Pf, B ivalent, 30 Mcg, IM, 12 yrs and above (Pfizer) 07/16/2022 Hepatitis B, 20+ yrs 04/17/2024,10/19/2023,03/13 /2024 Pneumococcal Conjugate Vacc, 13 Valent (Prevnar) 05/16/2021 Pneumococcal Conjugate Vacci ne, 20-valent ([id number]) 06/02/2022 Pneumococcal Polysaccharide PPV23 (Pneumovax) 07/01/2011,05/19/2011 RSV Vac., Recomb, Adjuvant, PF,0.5 Ml (Arexvy) 2023 Seasonal Influenza Vac., MDV , IM, 0.5 mL (Fluzone) 04/19/2013,04/05/2012,04/04/2011 Seasonal Influenza, High Dos e, Trivalent, PF, IM (Fluzone HD) 04/10/2024,04/04/2020 Seasonal Influenza, Quadriva lent Hd (Fluzone Hd) 03/16/2023,04/07/2022,05/16/2021 Seasonal Influenza, Quadriva lent, No Preserve, IM 04/09/2014,05/16/2013,04/19/2013,04/05,04/28/2011,04/04/2011,04/29/2010 ,04/02/2009,04/30/2008,04/05/2007,04/04,04/15/2005,05/01/2004, 9 TDAP (age 10 and older)(Boostrix) 03/16/2023, TDAP, [...] 08/26/2024 09/02/2024 documented as of this encounter Plan of Treatment Upcoming Encounters Date Type Department Care Team (Latest Contact Info) Description 10/11/2024 1:00 PM EDT Office Visit Family Medicine [address] [place] [phone] Radha Mccormick MD [address] [place] [address] [place] [address] 11/14/2024 9:30 AM EDT Hospital Encounter ENDO [facility], Endoscopy Room [facility] [address] [place] [phone] Lázaro Herrmann MD [address] [place] [address] 11/14/2024 9:30 AM EDT - 11/14/2024 10:00 AM EDT Surgery [facility]O [facility], Endoscopy Room [facility] [address] [place] [phone] Lázaro Herrmann MD [address] [place] [address] COLONOSCOPY FLEXIBLE PROXIMAL DIAGNOSTIC 11/16/2024 8:30 AM EDT Office Visit Cardiology [address] [place] [address] Lázaro Bolton PA-C [address] [place] [address] 12/14/2024 9:15 AM EDT Office Visit Orthopaedics [facility] [address] [place] [address] Attila Belcher PA-C [address] [place] [phone] 01/23/2025 3:30 PM EDT Office Visit Hematology/Oncology [facility] [place] [address] [facility] [place] [address] Myla [place] CRNP [address] [place] [address] 04/12/2025 9:00 AM EDT Nurse Only Ancillary [address] [place] [address] [place], Nurse Annual [address] [place] [address] 08/09/2025 10:30 AM EST Office Visit Cardiology [address] [place] [address] Lázaro Bolton PA-C [address] [place] [address] Pending Results Name Type Priority Associated Diagnoses Date /Time TSH Lab Routine Acquired hypothyroidism 09/26/2024 10:07 AM EDT Scheduled Procedures Name Priority Associated Diagnoses Date/Ti me COLONOSCOPY FLEXIBLE PROXIMAL DIAGNOSTIC Recall History of colon polyps Special screening for malignant neoplasms, colon 11/14/2024 9:30 AM EDT Health Maintenance Due Date Last Done Comments DISCUSS TOBACCO CESSATION (REFER TO SMARTSET #1430) 1950 Cologuard 1997 Fecal Occult Blood Test [...] 06/02/2022, Additional history exists GFR 06/22/2025 06/22/2024, 04/1 12/2023, 09/02/2023, Additional history exists TSH 06/22/2025 06/22/2024, 07/0 09/2023, 12/08/2023, Additional history exists Mammogram 09/13/2025 09/13/2024, 03/0 12/2023, 09/08/2023, Additional history exists DXA Scan 10/08/2028 10/08/2021, 04/0 12/2021, 11/22/2018, Additional history exists DTap/Tdap Vaccines [...] Not on filedocumented as of this encounter Visit Diagnoses Diagnosis Acquired hypothyroidism Unspecified hypothyroidism History of colon polyps Personal history of colonic polyps Special screening for malignant neoplasms, colon documented in this encounter Care Teams Dry Mixer Relationship Specialty Start Date End Date Radha Mccormick MD [address] [place] [address] [place] [phone] PCP - General Family Medicine 09/25/24 documented as of this encounter
--- OUTSIDE RECORDS SUMMARY | 2024-10-04 22:29 | External Medical Summary | Summary of Care ---
Author Name Unknown Organization [facility] Address [address] [place] [address] Phone [phone] Care Team Providers Care Windows 7 Deployment Lead Name Role Phone Radha Mccormick MD Primary Care Prov ider Reason for Visit * Reason Onset Date Comments Advice 09/25/2024 Encounter Details Date Type Department Care Team (Late st Contact Info) Description 09/25/2024 Telephone Family Medicine [address] [phone] Radha Mccormick MD [address] [place] [address] Advice Allergies No known active allergiesdocumented [...] Overview (07/30/2011): ASCVD, March 13, 2008 inferoposterior [place]. Emergent catheterization at that time ([facility] - occluded RCA, 25% left main, [...] ostium for stabilization. She was transferred to [facility] though did not require further intervention. Follow-up CT scan on 04/05/2008 revealed a stent to the RCA that was completely occluded with reconstitution of flow in the distal RCA via collaterals. The finding were considered to be stable when compared to the CT from 03/15/2008 from [facility]. No aortic dissection observed. Moderate CAD observed [...] +normal EF, +wall motion abnormalities with old [place] Lives w/ her 2 sisters--one with progressive MS (in bed), other is blind/deaf-had [place], smokes, can speak. History of diabetes mellitus, type II 07/15/2011 12/03/2022 F/u of acute inferior myocardial infarction 09/12/2008 01/24/2009 Overview (01/24/2009): Modified by Acute [place] Protocol #5. Dyslipidemia, goal to be determined [...] (Prevnar) 05/16/2021 Pneumococcal Conjugate Vacci ne, 20-valent ([id number]) 06/02/2022 Pneumococcal Polysaccharide PPV23 (Pneumovax) 07/01/2011,05/19/2011 RSV [...] encounter Miscellaneous Notes * Telephone Encounter - Sally Martines OSA - 09/26/2024 3:26 PM EDT Killian was advised we do not order those. He is asking our office to call and advise patient of this as they requested this testing. Killian can be reached at [phone]. * Telephone Encounter - Louise Page RN - 09/26/2024 1:05 PM EDT We dont order these tests * Telephone Encounter - Malu Montano OSA - 09/25/2024 11:29 AM EDT Received a call asking if fax was received by office. Name/Company sending fax: [employer] [facility] What fax is pertaining to: Lab request - Cancer hereditary test Date(s) they sent request: 09/21/24 Verified fax number they are sending to is correct (Y or N): y Callback Number for the clinic to call to verified if fax was received: [phone] documented in this encounter Plan of Treatment Upcoming Encounters Date Type Department Care Team (Latest Contact Info) Description 10/11/2024 1:00 PM EDT Office Visit Family Medicine [address] [place] [phone] Radha Mccormick MD [address] [place] [address] [place] [address] 11/14/2024 9:30 AM EDT Hospital Encounter [facility]O [facility], Endoscopy Room [facility] [address] [place] [phone] Lázaro Herrmann MD [address] [place] [address] 11/14/2024 9:30 AM EDT - 11/14/2024 10:00 AM EDT Surgery ENDO [facility], Endoscopy Room [facility] [address] [place] [phone] Lázaro Herrmann MD [address] [place] [address] COLONOSCOPY FLEXIBLE PROXIMAL DIAGNOSTIC 12/14/2024 9:15 AM EDT Office Visit Orthopaedics [facility] [address] [place] [phone] Attila Belcher PA-C [address] [place] [phone] 01/23/2025 3:30 PM EDT Office Visit Hematology/Oncology [facility] [address] [facility] [phone] Myla [place], IRAIS [address] [place] [address] 04/12/2025 9:00 AM EDT Nurse Only Ancillary [address] [place] [address] [place], Nurse [address] [place] [address] 08/09/2025 10:30 AM EST Office Visit Cardiology [address] [place] [address] Lázaro Bolton PAAlma [address] [place] [address] Scheduled Procedures Name Priority Associated Diagnoses Date/Ti me COLONOSCOPY FLEXIBLE PROXIMAL DIAGNOSTIC Recall History of colon polyps Special screening for malignant neoplasms, colon 11/14/2024 9:30 AM EDT Health Maintenance Due Date Last Done Comments DISCUSS TOBACCO CESSATION (REFER TO SMARTSET #7677) 1950 Cologuard 1997 Fecal Occult Blood Test [...] filedocumented as of this encounter Care Teams Windows 7 Deployment Lead Relationship Specialty Start Date End Date Radha Mccormick MD [address] [place] [address] [place] [address] PCP - General Family Medicine 09/25/24 documented as of this encounter
--- OUTSIDE RECORDS SUMMARY | 2024-10-04 22:29 | External Medical Summary | Summary of Care ---
Author Name Unknown Organization [facility] Address [address] [place] [address] Phone [phone] Care Team Providers Care Tool Crib Lead Name Role Phone Radha Mccormick MD Primary Care Prov ider Reason for Visit * Reason Onset Date Comments Advice 09/25/2024 Encounter Details Date Type Department Care Team (Late st Contact Info) Description 09/25/2024 Telephone Family Medicine [address] [phone] Radha Mccormick MD [address] [place] [id number] Advice Allergies No known active allergiesdocumented [...] Overview (07/30/2011): ASCVD, March 13, 2008 inferoposterior [place]. Emergent catheterization at that time ([facility] - occluded RCA, 25% left main, 25% proximal LAD, 25% lesion in the AV groove of the LCX just before the 2nd OM, and a 90% followed by a 70% stenosis of the proximal OM#3. The PDA appeared large & filled via left to right collaterals) was complicated by RCA dissection requiring bare-metal stenting to the ostium for stabilization. She was transferred to [facility] though did not require further intervention. Follow-up CT scan on 04/05/2008 revealed a stent to the RCA that was completely occluded with reconstitution of flow in the distal RCA via collaterals. The finding were considered to be stable when compared to the CT from 03/15/2008 from [facility]. No aortic dissection observed. Moderate CAD observed [...] +normal EF, +wall motion abnormalities with old [place] Lives w/ her 2 sisters--one with progressive MS (in bed), other is blind/deaf-had [place], smokes, can speak. History of diabetes mellitus, type II 07/15/2011 12/03/2022 F/u of acute inferior myocardial infarction 09/12/2008 01/24/2009 Overview (01/24/2009): Modified by Acute [place] Protocol #5. Dyslipidemia, goal to be determined [...] (Prevnar) 05/16/2021 Pneumococcal Conjugate Vacci ne, 20-valent ([id number]) 06/02/2022 Pneumococcal Polysaccharide PPV23 (Pneumovax) 07/01/2011,05/19/2011 RSV [...] this testing. Killian can be reached at [phone]. * Telephone Encounter - Louise Page RN - 09/26/2024 1:05 PM EDT We dont order these tests * Telephone Encounter - Malu Montano OSA - 09/25/2024 11:29 AM EDT Received a call asking if fax was received by office. Name/Company sending fax: [employer] ([place] [employer] [facility] What fax is pertaining to: Lab request - Cancer hereditary test Date(s) they sent request: 09/21/24 Verified fax number they are sending to is correct (Y or N): y Callback Number for the clinic to call to verified if fax was received: [phone] documented in this encounter Plan of Treatment Upcoming Encounters Date Type Department Care Team (Latest Contact Info) Description 10/11/2024 1:00 PM EDT Office Visit Family Medicine [address] [place] [phone] Radha Mccormick MD [address] [place] [address] [place] [address] 11/14/2024 9:30 AM EDT Hospital Encounter ENDO OSSC, Endoscopy Room [facility] [address] [place] [phone] Lázaro Herrmann MD [address] [place] [address] 11/14/2024 9:30 AM EDT - 11/14/2024 10:00 AM EDT Surgery ENDO OSSC, Endoscopy Room [facility] [address] [place] [phone] Lázaro Herrmann MD [address] [place] [address] COLONOSCOPY FLEXIBLE PROXIMAL DIAGNOSTIC 12/14/2024 9:15 AM EDT Office Visit Orthopaedics [facility] [address] [place] [phone] Attila Belcher PA-C [address] [place] [phone] 01/23/2025 3:30 PM EDT Office Visit Hematology/Oncology [facility] [address] [facility] [phone] Myla Carlton, IRAIS [address] [place] [place] [address] 04/12/2025 9:00 AM EDT Nurse Only Ancillary [address] [place] [address] [place], Nurse [address] [place] [address] 08/09/2025 10:30 AM EST Office Visit Cardiology [address] [place] [address] Lázaro Bolton PAAlma [address] [place] [address] Scheduled Procedures Name Priority Associated Diagnoses Date/Ti me COLONOSCOPY FLEXIBLE PROXIMAL DIAGNOSTIC Recall History of colon polyps Special screening for malignant neoplasms, colon 11/14/2024 9:30 AM EDT Health Maintenance Due Date Last Done Comments DISCUSS TOBACCO CESSATION (REFER TO SMARTSET #0330) 1950 Cologuard 1997 Fecal Occult Blood Test [...] filedocumented as of this encounter Care Teams Tool Crib Lead Relationship Specialty Start Date End Date Radha Mccormick MD [address] [place] [address] [place] [address] PCP - General Family Medicine 09/25/24 documented as of this encounter
--- OUTSIDE RECORDS SUMMARY | 2024-10-04 22:29 | External Medical Summary | Summary of Care ---
Author Name Unknown Organization [facility] Address [address] [facility] [place] [address] Phone [phone] Care Team Providers Care Agricultural Science Professor Name Role Phone Sae, Rayaleksandarshelly Merline IRAIS Primary Care Provider Reason for Visit * Reason Comments Outpatient Testing Encounter Details Date Type Department Care Team (Late st Contact Info) Description 09/22/2024 1:10 PM EDT Laboratory Laboratory [address] [place] [phone] [facility] [address] [place] [address] Arrived Allergies No known active allergiesdocumented as of this encounter (statuses as of 09/22/2024) Medications ASPIRIN 81 MG PO TABS 1 [...] as of this encounter (statuses as of 09/22/2024) Active Problems Problem Noted Date Diagnosed Date [...] Overview (07/30/2011): ASCVD, March 13, 2008 inferoposterior [place]. Emergent catheterization at that time ([facility] - occluded RCA, 25% left main, 25% proximal LAD, 25% lesion in the AV groove of the LCX just before the 2nd OM, and a 90% followed by a 70% stenosis of the proximal OM#3. The PDA appeared large & filled via left to right collaterals) was complicated by RCA dissection requiring bare-metal stenting to the ostium for stabilization. She was transferred to [facility] though did not require further intervention. Follow-up CT scan on 04/05/2008 revealed a stent to the RCA that was completely occluded with reconstitution of flow in the distal RCA via collaterals. The finding were considered to be stable when compared to the CT from 03/15/2008 from [facility]. No aortic dissection [...] as of this encounter (statuses as of 09/22/2024) Resolved Problems Problem Noted Date Diagnosed Date [...] +normal EF, +wall motion abnormalities with old [place] Lives w/ her 2 sisters--one with progressive MS (in bed), other is blind/deaf-had [place], smokes, can speak. History of diabetes mellitus, type II 07/15/2011 12/03/2022 F/u of acute inferior myocardial infarction 09/12/2008 01/24/2009 Overview (01/24/2009): Modified by Acute [place] Protocol #5. Dyslipidemia, goal to be determined 09/12/2008 06/11/2009 Overview (06/11/2009): Per Lipid Taxonomy. Tobacco use disorder 012 documented as of this encounter (statuses as of 09/22/2024) Immunizations Name Administration Dates Next Due COVID-19, LNP-s, No Preserve , Osvaldo-sucrose, Ages 12+ (Pfizer) 11/18/2021,05/13/2021,10/09/2020,09/18 COVID-19, MRNA-LNP, PF, 30 M CG/0.3 mL, 12 YRS AND ABOVE, IM (PFIZER-Comirnaty) 04/10/2024,2023,04/08/2023 Covid-19, Mrna, Lnp-s, Pf, B ivalent, 30 Mcg, IM, 12 yrs and above (Pfizer) 07/16/2022 Hepatitis B, 20+ yrs 04/17/2024,10/19/2023,09/14 Pneumococcal Conjugate Vacc, 13 Valent (Prevnar) 05/16/2021 Pneumococcal Conjugate Vacci ne, 20-valent ([id number]) 06/02/2022 Pneumococcal Polysaccharide PPV23 (Pneumovax) 07/01/2011,05/19/2011 RSV [...] on file documented as of this encounter Plan of Treatment Upcoming Encounters Date Type Department Care Team (Latest Contact Info) Description 09/26/2024 9:30 AM EDT Office Visit Cardiology [address] [place] [address] Lázaro Bolton PA-C [address] [place] [address] 10/11/2024 1:00 PM EDT Office Visit Family Medicine [address] [place] [phone] Radha Mccormick MD [address] [place] [address] [place] [address] 11/14/2024 9:30 AM EDT Hospital Encounter ENDO OSSC, Endoscopy Room [facility] [address] [place] [phone] Lázaro Herrmann MD [address] [place] [address] 11/14/2024 9:30 AM EDT - 11/14/2024 10:00 AM EDT Surgery ENDO OSSC, Endoscopy Room [facility] [address] [place] [phone] Lázaro Herrmann MD [address] [place] [address] COLONOSCOPY FLEXIBLE PROXIMAL DIAGNOSTIC 11/16/2024 8:30 AM EDT Office Visit Cardiology [address] [place] [address] Lázaro Bolton, PAULA [address] [place] [address] 12/14/2024 9:15 AM EDT Office Visit Orthopaedics [facility] [address] [place] [phone] Attila Belcher PA-C [address] [place] [phone] 01/23/2025 3:30 PM EDT Office [facility] [place] [address] [facility] [place] [phone] Myla Carlton CRNP [address] [place] [address] 04/12/2025 9:00 AM EDT Nurse Only Ancillary [address] [place] [address] Mov[place], Nurse [address] [place] [address] Scheduled Procedures Name Priority Associated Diagnoses Date/Ti me COLONOSCOPY FLEXIBLE PROXIMAL DIAGNOSTIC Recall History of colon polyps Special screening for malignant neoplasms, colon 11/14/2024 9:30 AM EDT Health Maintenance Due Date Last Done Comments DISCUSS TOBACCO CESSATION (REFER TO SMARTSET #7764) 1950 Cologuard 1997 Fecal Occult Blood Test [...] 04/07/2022 Depression Monitoring 04/10/2025 04/10/2024 Albumin/Creatinine Ratio 06/22/20252 024, 09/15/2023, 06/02/2022, Additional history exists GFR 06/22/2025 06/22/2024, 04/1 12/2023, 09/02/2023, Additional history exists TSH 06/22/2025 06/22/2024, 07/0 09/2023, 12/08/2023, Additional history exists Mammogram 09/13/2025 09/13/2024, 030 12/2023, 09/08/2023, Additional history exists DXA Scan [...] filedocumented as of this encounter Care Teams Agricultural Science Professor Relationship Specialty Start Date End Date Ron Quevedo CRNP [address] [place] [address] [place] [phone] PCP - General Nurse Practitioner 07/12/24 documented as of this encounter
--- OUTSIDE RECORDS SUMMARY | 2024-10-04 22:29 | External Medical Summary | Summary of Care ---
Author Name Unknown Organization [facility] Address [address] [facility] [place] [address] Phone [phone] Care Team Providers Care Taker Off Drying Kiln Name Role Phone Radha Mccormick MD Primary Care Prov ider Reason for Visit * Reason Onset Date Comments Test Results 09/27/2024 Encounter Details Date Type Department Care Team (Late st Contact Info) Description 09/27/2024 Telephone Cardiology, [facility] [address] [place] [address] Lázaro Bolton PA-C [address] [facility], [place] [phone] Test Results Allergies No known active allergiesdocumented as of this encounter (statuses as of 09/28/2024) Medications ASPIRIN 81 MG PO TABS 1 [...] skin once a week. 9 mL 3 5 9:28 AM EDT 05/25/20 24 Active Praluent 75 MG/ML Subcutaneous Solution Auto-injector (Alirocumab) Inject 75 mg (1 pen) under the skin every 14 days. 6 mL 3 5 9:08 AM EDT 06/27/20 24 Active DULoxetine HCl 60 MG Oral Capsule Delayed Release Particles (Cymbalta)Indicati ons:Mild episode of recurrent major depressive disorder (HCC) Take 1 Capsule by mouth in the morning. Do not cut, crush or chew. 90 Capsule 3 07/12/19 25 Active Omeprazole 20 MG Oral Capsule Delayed Release (PriLOSEC) TAKE ONE CAPSULE BY MOUTH AT BEDTIME 31 Capsule 3 07/12/19 25 Active Levothyroxine Sodium 100 MCG Oral Tablet (Levoxyl)Indicatio ns:Acquired hypothyroidism Take 1 Tablet by mouth daily first thing in the morning. (at least 30 min prior to breakfast or other meds) 90 Tablet 3 09/29/19 25 Active Levothyroxine Sodium 112 MCG Oral Tablet (Levoxyl) Take 1 Tablet by mouth in the morning. (at least 30 min prior to breakfast or other meds). 90 Tablet 1 07/04/20 24 025 Discontin ued(Medic ation/Dos e Changed) documented as of this encounter (statuses as of 09/28/2024) Active Problems Problem Noted Date Diagnosed Date [...] Overview (07/30/2011): ASCVD, March 13, 2008 inferoposterior [place]. Emergent catheterization at that time ([facility] - occluded RCA, 25% left main, [...] ostium for stabilization. She was transferred [place] [facility] [place] did not require further intervention. Follow-up CT scan on 04/05/2008 revealed a stent to the RCA that was completely occluded with reconstitution of flow in the distal RCA via collaterals. The finding were considered to be stable when compared to the CT from 03/15/2008 from [facility] No aortic dissection observed. Moderate CAD observed [...] as of this encounter (statuses as of 09/28/2024) Resolved Problems Problem Noted Date Diagnosed Date [...] +normal EF, +wall motion abnormalities with old [place] Lives w/ her 2 sisters--one with progressive MS (in bed), other is blind/deaf-had [place], smokes, can speak. History of diabetes mellitus, type II 07/15/2011 12/03/2022 F/u of acute inferior myocardial infarction 09/12/2008 01/24/2009 Overview (01/24/2009): Modified by Acute [place] Protocol #5. Dyslipidemia, goal to be determined 09/12/2008 06/11/2009 Overview (06/11/2009): Per Lipid Taxonomy. Tobacco use disorder 012 documented as of this encounter (statuses as of 09/28/2024) Immunizations Name Administration Dates Next Due COVID-19, LNP-s, No Preserve , Osvaldo-sucrose, Ages 12+ (Pfizer) 11/18/2021,05/13/2021,10/09/2020,09/18 COVID-19, MRNA-LNP, PF, 30 M CG/0.3 mL, 12 YRS AND ABOVE, IM (PFIZER-Comirnaty) 04/10/2024,2023,04/08/2023 Covid-19, Mrna, Lnp-s, Pf, B ivalent, 30 Mcg, IM, 12 yrs and above (Pfizer) 07/16/2022 Hepatitis B, 20+ yrs 04/17/2024,10/19/2023,09/14 Pneumococcal Conjugate Vacc, 13 Valent (Prevnar) 05/16/2021 Pneumococcal Conjugate Vacci ne, 20-valent ([id number]) 06/02/2022 Pneumococcal Polysaccharide PPV23 (Pneumovax) 07/01/2011,05/19/2011 RSV [...] encounter Miscellaneous Notes * Telephone Encounter - Mary Narayan LPN - 09/27/2024 10:34 AM EDT Pt called back, verbalized understanding. * Telephone Encounter - An Devine LPN - 09/27/2024 8:58 AM EDT No answer at home number LMOM on mobile for pt return call to clinic for information in this encounter. Medication pended, confirm pharmacy. * Telephone Encounter - An Devine LPN - 09/27/2024 8:38 AM EDT ----- Message from Lázaro Bolton sent at 09/27/2024 8:03 AM EDT ----- Decrease levothyroxine dosing from 112 mcg/day to 100 mcg/day. Repeat TSH in about 3 months. documented in this encounter Plan of Treatment Upcoming Encounters Date Type Department Care Team (Latest Contact Info) Description 10/11/2024 1:00 PM EDT Office Visit Family Medicine [address] [place] [phone] Radha Mccormick MD [address] [place] [address] [place] [address] 11/14/2024 9:30 AM EDT Hospital Encounter ENDO O[facility]C, Endoscopy Room [facility] [address] [place] [phone] Lázaro Herrmann MD [address] [place] [address] 11/14/2024 9:30 AM EDT - 11/14/2024 10:00 AM EDT Surgery ENDO O[facility]C, Endoscopy Room [facility] [address] [place] [phone] Lázaro Herrmann MD [address] [place] [address] COLONOSCOPY FLEXIBLE PROXIMAL DIAGNOSTIC 12/14/2024 9:15 AM EDT Office Visit Orthopaedics [facility] [address] [place] [phone] Attila Belcher PA-C [address] [place] [phone] 01/23/2025 3:30 PM EDT Office Visit Hematology/Oncology [facility] [address] [facility] [place] [phone] Myla Carlton CRNP [address] [place] [address] 04/12/2025 9:00 AM EDT Nurse Only Ancillary [address] [place] [address] [place], Nurse [address] [place] [address] 08/09/2025 10:30 AM EST Office Visit Cardiology [address] [place] [address] Lázaro Bolton PA-C [address] [place] [address] Scheduled Orders Name Type Priority Associated Diagnoses Orde r Schedule TSH Lab Routine Acquired hypothyroidism Expected: 12/29/2024, Expires: 09/28/2025 Scheduled Procedures Name Priority Associated Diagnoses Date/Ti me COLONOSCOPY FLEXIBLE PROXIMAL DIAGNOSTIC Recall History of colon polyps Special screening for malignant neoplasms, colon 11/14/2024 9:30 AM EDT Health Maintenance Due Date Last Done Comments DISCUSS TOBACCO CESSATION (REFER TO SMARTSET #3036) 1950 Cologuard 1997 Fecal Occult Blood Test [...] 06/22/2025 06/22/2024, 10/03, 09/02/2023, Additional history exists Mammogram 09/13/2025 09/13/2024, 03/0 [...] of this encounter Visit Diagnoses Diagnosis Acquired hypothyroidism- Primary Unspecified hypothyroidism History of colon polyps Personal history of colonic polyps Special screening for malignant neoplasms, colon documented in this encounter Care Teams Taker Off Drying Kiln Relationship Specialty Start Date End Date Radha Mccormick MD [address] [place] [address] [place] [address] PCP - General Family Medicine 09/25/24 documented as of this encounter
--- OUTSIDE RECORDS SUMMARY | 2024-10-04 22:29 | External Medical Summary | Summary of Care ---
Author Name Unknown Organization [facility] Address [address] [facility] [place] [address] Phone [phone] Care Team Providers Care Life Teacher Name Role Phone Radha Mccormick MD Primary Care Prov ider Reason for Visit * Reason Comments Follow Up 5 month follow up. D enies chest pain, palpitations, dizziness, edema and SOB. Encounter Details Date Type Department Care Team (Latest Contact Info) Description 09/26/2024 9:30 AM EDT Office Visit Cardiology [address] [place] [phone] Lázaro Bolton PA-C [address] [place] [address] ASCVD (arteriosclerotic cardiovascular disease)*; Tobacco use disorder; Stented coronary artery; Old myocardial infarct; Dyslipidemia, goal LDL below 70; Nonrheumatic aortic valve stenosis; Acquired hypothyroidism Allergies No known active allergiesdocumented as of this encounter (statuses as of 09/27/2024) Medications ASPIRIN 81 MG PO TABS 1 [...] as of this encounter (statuses as of 09/27/2024) Active Problems Problem Noted Date Diagnosed Date [...] Overview (07/30/2011): ASCVD, March 13, 2008 inferoposterior PR. Emergent catheterization at that time ([facility] - occluded RCA, 25% left main, 25% proximal LAD, 25% lesion in the AV groove of the LCX just before the 2nd OM, and a 90% followed by a 70% stenosis of the proximal OM#3. The PDA appeared large & filled via left to right collaterals) was complicated by RCA dissection requiring bare-metal stenting to the ostium for stabilization. She was transferred to [facility] [place] though did not require further intervention. Follow-up CT scan on 04/05/2008 revealed a stent to the RCA that was completely occluded with reconstitution of flow in the distal RCA via collaterals. The finding were considered to be stable when compared to the CT from 03/15/2008 from [facility] [place]. No aortic dissection observed. Moderate CAD observed [...] as of this encounter (statuses as of 09/27/2024) Resolved Problems Problem Noted Date Diagnosed Date [...] +normal EF, +wall motion abnormalities with old PR Lives w/ her 2 sisters--one with progressive MS (in bed), other is blind/deaf-had PR, smokes, can speak. History of diabetes mellitus, type II 07/15/2011 12/03/2022 F/u of acute inferior myocardial infarction 09/12/2008 01/24/2009 Overview (01/24/2009): Modified by Acute PR Protocol #5. Dyslipidemia, goal to be determined 09/12/2008 06/11/2009 Overview (06/11/2009): Per Lipid Taxonomy. Tobacco use disorder 012 documented as of this encounter (statuses as of 09/27/2024) Immunizations Name Administration Dates Next Due COVID-19, LNP-s, No Preserve , Osvaldo-sucrose, Ages 12+ (Pfizer) 11/18/2021,05/13/2021,10/09/2020,09/18 COVID-19, MRNA-LNP, PF, 30 M CG/0.3 mL, 12 YRS AND ABOVE, IM (Genability-Comirnat) 04/10/2024,2023,04/08/2023 Covid-19, Mrna, Lnp-s, Pf, B ivalent, 30 Mcg, IM, 12 yrs and above (Pfizer) 07/16/2022 Hepatitis B, 20+ yrs 04/17/2024,10/19/2023,09/14 Pneumococcal Conjugate Vacc, 13 Valent (Prevnar) 05/16/2021 Pneumococcal Conjugate Vacci ne, 20-valent (Cgcicdy29) 06/02/2022 Pneumococcal Polysaccharide PPV23 (Pneumovax) 07/01/2011,05/19/2011 RSV [...] 1.5 43 Started: 10/04/2023 Smokeless Tobacco: Never Tobacco Cessation:Ready to Q uit: Not Asked; Counseling Given: Not Answered Comments:started age 24 Alcohol Use Standard Drinks/Week [...] file Travel History Travel Start Travel End [place] 08/26/2024 09/02/2024 documented as of this encounter Last Filed Vital Signs Vital Sign Reading Time Taken Comments Blood Pressure 122/72 09/26/2024 9:26 AM EDT Pulse 76 09/26/2024 9:26 AM EDT Temperature - - Respiratory Rate 16 09/26/2024 9:26 AM EDT Oxygen Saturation - - Inhaled Oxygen Concentration - - Weight 85.6 kg (188 lb 11.2 oz) 09/26/2024 9:26 AM EDT Height - - Body Mass Index 31.64 04/10/2024 9:06 AM EDT documented in this encounter Progress Notes * Lázaro Bolton PA-C - 09/26/2024 9:44 AM EDT History of Present Illness: Lisbeth Cobb is a 73-year-old female who returns today for routine Cardiology follow-up. Feeling OK, maybe a little tired. Got confused and started taking a whole pill of metoprolol tartrate 25 mg twice a day about 3 months ago. TSH was abnormal in June, levothyroxine increased from 100 mcg/day to 112 mcg/day. Patient camein last week for a follow-up blood test however no order was available which made her a little upset. She would like to have this done today. Smoking a little less than before No reported chest pain, palps shins, worsening shortness of breath, fluid retention, positional dizziness or lightheadedness, near-syncope, syncope, melena, or hematochezia. Past Medical/Surgical History: ASCVD. March 13, 2008 inferoposterior PR. Emergent catheterization complicated by RCA dissection requiring bare-metal stenting to the ostium for stabilization. Status post October 29, [address] Acharya at [facility] [place] following presentation with atypical chest pain, mildly abnormal EKG, and abnormal nuclear stress testing. Catheterization showed no progression of disease in the LCA; large LM, LAD, and two large LCX branches which were not co mpromised. There was only a small degree of collateral flow from the LAD septals to the RPDA. The RCA was patent but with a very long complex lesion extending 1/[address] down representing recanalization. The risks of stenting the proximal RCA lesion were felt to be greater than the benefit thus medical management was advised. Although documentation states that beta-kevan therapy was added this is not correct as the patient has been prescribed chronic beta-kevan therapy. Past intolerance to isosorbide Carotid artery disease Asymptomatic ventricular ectopy. Hypertension Hyperlipidemia with past intolerance to simvastatin, rosuvastatin, fenofibrate and ezetimibe. Type II diabetes mellitus Hypothyroidism Longstanding tobacco abuse Pleural-based nodules. CT screenings via the Lung Cancer Screening Program Polycythemia. 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 Status post lumpectomyand sentinel lymph node biopsy on 07/01/2018. Status post radiation therapy, completed 10/18/2018. Prescribed anastrozole 1 mg daily x 10 years. GERD Obesity Sinus surgery Bilateral carpal tunnel release Tubal ligation Uterine biopsy Family History: Mother was a chronic smoker and had underlying lung issues as well as CHF; she diedat 62 years of age. Father had lung cancer, hemachromatosis, and CAD. Two sisters with CAD, one in her 30s. Social History: Lifelong smoker. Denies significant alcohol consumption. Denies illegal drug use. in 2017. Disabled. Complete Review of Systems is as stated above, negative, or noncontributory. Review of patient's allergies indicates: No Known Allergies Current Outpatient Medications Medication Sig Dispense Refill DULoxetine HCl 60 MG Oral Capsule Delayed Release Particles (Cymbalta) Take 1 Capsule by mouth in the morning. Do not cut, crush or chew. 90 Capsule 3 Omeprazole 20 MG Oral Capsule Delayed Release (PriLOSEC) TAKE ONE CAPSULE BY MOUTH AT BEDTIME 31 Capsule 3 Levothyroxine Sodium 112 MCG Oral Tablet (Levoxyl) Take 1 Tablet by mouth in the morning. (at least30 min prior to breakfast or other meds). 90 Tablet 1 Praluent 75 MG/ML Subcutaneous Solution Auto-injector (Alirocumab) Inject 75 mg (1 pen) under the skin every 14 days. 6 mL 3 Ozempic (0.25 or 0.5 MG/DOSE) 2 MG/3ML Solution Pen-injector (Semaglutide(0.25 or 0.5MG/DOS)) Inject 0.5 mg under the skin once a week. 9 mL 3 Metoprolol Tartrate 25 MG Oral Tablet (Lopressor) Take 1 Tablet by mouth in the morning and 1 Tablet before bedtime. Atorvastatin Calcium 80 MG Oral Tablet (Lipitor) TAKE ONE TABLET BY MOUTH EVERY DAY 90 Tablet 3 Calcium Carbonate 600 MG Oral Tablet Take 1 Tablet by mouth in the morning. Magnesium Oxide 400 MG Capsule Take 1 Capsule by mouth in the morning. ASPIRIN 81 MG PO TABS 1 TABLET DAILY 30 5 Fluticasone Propionate 50 MCG/ACT Nasal Suspension (Flonase) Administer 2 Sprays into each nostril in the morning. 16 mL 2 Nitroglycerin 0.4 MG Sublingual Tablet Sublingual (Nitrostat) DISSOLVE 1 TABLET UNDER TONGUE EVERY 5 MINUTES UP TO 3 DOSES NEEDED FOR CHEST PAIN. (Patient not taking: Reported on 05/02/2024) 25 Tablet 3 No current facility-administered medications for this visit. OBJECTIVE/PHYSICAL EXAMINATION: BP 122/72 | Pulse 76 | Resp 16 | Wt 85.6 kg (188 lb 11.2 oz) | BMI 31.64 kg/m² | BSA 1.98 m² General: A&Ox3. NAD. Normal affect. Limited neurological examination is without focal deficit. HENT:Normocephalic. Eyes: PER, Conjunctiva pink, sclera clear. Neck: Carotid bruits. No JVD. Heart: Regular at 56 bpm. Grade II/ systolic murmur. Lungs: Decreased. Diminished. No wheeze. Abdomen: Obese.+BS.. Extremities: Posterior tibial=1/4 on the right and 1/4 on the left. No clubbing, cyanosis, orperipheral edema. Data: March 2016 CALVIN (at [facility]) was normal. October 29, 2016 Cardiac Catheterization ([facility], Dr. Acharya): There is a 90% lesion in distal LCx similar to prior catheterization in 2008.The RCA has markedly improved flow compared to the prior catheterization in 2008. While there is a proximal RCA stent with an 80% in stent restenosis along with continued disease through the mid RCA, the flow is ROSALINDA 3 throughout the vessel. The collaterals from the left system to the right are nearly gone and there is only a small remanant of a left to right collateral to the distal RPDA.Normal LVEDP (7 mmHg) January 2019 Zio: Patient had a min HR of 56 bpm, max HR of 112 bpm, and avg HR of 72 bpm. Predominantunderlying rhythm was Sinus Rhythm. First Degree AV Block was present. 2 Supraventricular Tachycardia runs occurred, the run with the fastest interval lasting 9 beats with a max rate of 112 bpm (avg 98 bpm); the run with the fastest interval was also the longest. Isolated SVEs were rare (<1.0%),SVE Couplets were rare (<1.0%), and SVE Triplets were rare (<1.0%). Isolated VEs were rare (<1.0%), VE Couplets were rare (<1.0%), and no VE Triplets were present. A pateint triggered event correlated with sinus rhythm at 84 bpm October 21, 2023 TTE Interpretation Summary (as per Dr. Solo): The qualitative LV ejection fraction is 55-59% (normal). The LV wall thickness is mildly increased (concentric). The left ventricular diastolic function is mildly abnormal (grade I). The aortic valve has three leaflets. The aortic valve is mildly calcified. There is aortic valve sclerosis without stenosis. There is severe mitral annular calcification. Mild mitral regurgitation is present. Compared to prior study of 10/13/2022, there is no significant change. December 08, 2023 Lexiscan Interpretation Summary (as per Dr. Solo): Normal Lexiscan myocardial perfusion imaging study without evidence of inducible ischemia, or myocardial scar. Gated SPECT images reveals normal myocardial thickening and wall motion. The LV ejection fraction is calculated at >70%. January 10, 2024 Carotid Duplex: Right carotid artery duplex examination indicates evidence of less than 50% stenosis of the internal carotid artery. Left carotid artery duplex examination indicates evidence of less than 50% stenosis of the internal carotid artery. ASSESSMENT: Stable cardiac signs and symptoms. ASCVD. Normal Lexiscan nuclear stress testing on December 08, 2023. Past intolerance to Imdur. Asymptomatic. Continue medical management. Ventricular ectopy. Asymptomatic. LV function preserved. Chronically prescribed beta-kevan therapy. Carotid artery disease. Carotid duplex in January 2024 with stable mild bilateral internal carotid artery disease, unchanged for a number of years. Continue aspirin in the current lipid lowering regimendetailed below Hyperlipidemia. Patient with past intolerance to simvastatin, rosuvastatin, fenofibrate and ezetimibe. Target LDL < 55 per ADA. LDL cholesterol 48 mg/dL on 06/22/2024. Continue atorvastatin 80 mg/day. Continue Praluent 75mg every 2 weeks (started ~ 07/22/22) - [facility]. Yearly lipid panels Chronic tobacco abuse. Pleural-based nodules. CT screenings via the Lung Cancer Screening Program. Tobacco cessation advised. Nocturnal pulse oximetry without significant nocturnal hypoxemia in November 2022. Evaluation for possible underlying sleep apnea declined. Secondary erythrocytosis Fatigue. Bradycardia. Decrease metoprolol tartrate dosing back to 12.5 mg twice per day. Recheck TSH. Routine Cardiology follow-up. ER with emergencies Lázaro Bolton PA-C Department of Cardiology I spent a total of 30-39 minutes (exact time 33 mins) on the date of service in preparation, delivery, and documentation of the care provided to Lisbeth Cobb excluding any time spent in the performance of separately billed services. This visit involved medical care services related to at least one serious condition or complex condition requiring ongoing care. This chart was completed in part utilizing [employer] Speech Voice Recognition Software. Grammatical errors, random word insertions, prounoun errors, and incomplete sentences are an occasional consequence of this system due to software limitations, ambient noise, and hardware issues. Any formal questions or concerns about the content, text, or information contained within the body of this dictation should be directly addressed to the provider for clarification. documented in this encounter Nursing Notes * Allen Balderas LPN - 09/26/2024 9:25 AM EDT Patient identified by full name and date of Chief Complaint Patient presents with Follow Up 5 month follow up. Denies chest pain, palpitations, dizziness, edema and SOB. Examination Room: 4 Name: Lisbeth Cobb Date of : (1950). Reason for Visit: 5 month follow up Interim Hospitalization(s): Denies Problems/Concerns: Denies Chest Pain/SOB: Denies [facility] Discussed: Not applicable [facility] is a way you can talk to your provider online through e-mail. Would you like to sign up? I can activate it for you? DECLINES Patient was instructed to not get up on the exam table until directed and assisted by their provider; patient is to remain seated in the chair/ wheelchair/ exam table for fall prevention and safety reasons. Patient is aware to have assistance to step down off exam table with personnel. Patient voiced full comprehension of instructions. documented in this encounter Plan of Treatment Upcoming Encounters Date Type Department Care Team (Latest Contact Info) Description 10/11/2024 1:00 PM EDT Office Visit Family Medicine [address] [place] [phone] Radha Mccormick MD [address] [place] [address] [place] [phone] 11/14/2024 9:30 AM EDT Hospital Encounter ENDO OSSC, Endoscopy Room [facility] [address] [place] [phone] Lázaro Herrmann MD [address] [place] [phone] 11/14/2024 9:30 AM EDT - 11/14/2024 10:00 AM EDT Surgery ENDO OSS, Endoscopy Room [facility] [address] [place] [phone] Lázaro Herrmann MD [address] [place] [address] COLONOSCOPY FLEXIBLE PROXIMAL DIAGNOSTIC 12/14/2024 9:15 AM EDT Office Visit Orthopaedics [facility] [address] [place] [phone] Attila Belcher PA-C [address] [place] [phone] 01/23/2025 3:30 PM EDT Office Visit Hematology/Oncology [facility] [address] [facility] [place] [phone] Myla Carlton CRNP [address] [facility] [place] [phone] 04/12/2025 9:00 AM EDT Nurse Only Ancillary [address] [place] [phone] [place], Nurse [address] [place] [phone] 08/09/2025 10:30 AM EST Office Visit Cardiology [address] [place] [phone] Lázaro Bolton PA-C [address] [place] [phone] Scheduled Procedures Name Priority Associated Diagnoses Date/Ti me COLONOSCOPY FLEXIBLE PROXIMAL DIAGNOSTIC Recall History of colon polyps Special screening for malignant neoplasms, colon 11/14/2024 9:30 AM EDT Health Maintenance Due Date Last Done Comments DISCUSS TOBACCO CESSATION (REFER TO SMARTSET #[id number]) 1950 Cologuard 1997 Fecal Occult Blood Test [...] 10/03, 09/02/2023, Additional history exists TSH 06/22/2025 09/26/2024, 06/04, 01/05/2024, Additional history exists Mammogram 09/13/2025 09/13/2024, 03/0 [...] Not on filedocumented as of this encounter Results * (ABNORMAL) TSH (09/26/2024 10:07 AM EDT) TSH 0.13(L) 0.27 - 4.20 uIU/mL 09/27/2024 12:56 AM EDT LABORATORY [facility] Blood Venous blood specimen / Unknown Venipuncture / Unknown 09/26/2024 10:07 AM EDT 09/26/2024 10:07 AM EDT Lázaro Bolton PA-C LAB BLOOD ORDERABLES Final Result LABORATORY [facility] [address] [place] [address] documented in this encounter Visit Diagnoses Diagnosis ASCVD (arteriosclerotic cardiovascular disease)- Primary Unspecified cardiovascular disease Tobacco use disorder Stented coronary artery Postsurgical percutaneous transluminal coronary angioplasty status Old myocardial infarct Old myocardial infarction Dyslipidemia, goal LDL below 70 Other and unspecified hyperlipidemia Nonrheumatic aortic valve stenosis Aortic valve disorders Acquired hypothyroidism Unspecified hypothyroidism History of colon polyps Personal history of colonic polyps Special screening for malignant neoplasms, colon documented in this encounter Care Teams Life Teacher Relationship Specialty Start Date End Date Radha Mccormick MD [address] [place] [address] [place] [phone] PCP - General Family Medicine 09/25/24 documented as of this encounter"
--- OUTSIDE RECORDS SUMMARY | 2024-10-04 22:29 | External Medical Summary ---
Author Name Unknown Address Unknown Organization [id number]:LABORATORY [facility] [place] - [address] [place] [address] Laboratory Report Ordering Provider Test Date Status FLORINDA ARCOS 09/26/2024 10:07:43 Final Observation Date Value Abnormality Reference (Units ) Status TSH 09/26/2024 10:07:43 0.13 Below low normal 0.2 7-4.20 (uIU/mL) Final Performing Location LABORATORY C - [address] [place] [address]
--- OUTSIDE RECORDS SUMMARY | 2024-10-04 22:30 | External Medical Summary | Summary of Care ---
Author Name Unknown Organization [facility] Address [address] [facility] [place] [address] Phone [phone] Care Team Providers Care Physical Chemist Name Role Phone Ron Quevedo IRAIS Primary Care Provider Reason for Visit * Reason Comments Pain Pt presents for R kn ee steroid injection Encounter Details Date Type Department Care Team (Latest Contact Info) Description 09/13/2024 1:15 PM EDT Office Visit Orthopaedics [facility] [address] [place] [phone] Attila Belcher PA-C [address] [place] [phone] Primary osteoarthritis of one knee, right* Allergies No known active allergiesdocumented as of this encounter (statuses as of 09/13/2024) Medications ASPIRIN 81 MG PO TABS 1 [...] Active Additional Information Patient not taking.Reported on 05/02/2024 Atorvastatin Calcium 80 MG Oral Tablet (Lipitor)Indicatio [...] skin once a week. 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 Emergent catheterization at that time ([facility] - occluded RCA, 25% left [...] ostium for stabilization. She was transferred to [facility] though did not require further intervention. Follow-up CT scan on 04/05/2008 revealed a stent to the RCA that was completely occluded with reconstitution of flow in the distal RCA via collaterals. The finding were considered to be stable when compared to the CT from 03/15/2008 from [facility]. No aortic dissection observed. [...] as of this encounter (statuses as of 09/13/2024) Resolved Problems Problem Noted Date Diagnosed Date [...] +normal EF, +wall motion abnormalities with old SC Lives w/ her 2 sisters--one with progressive MS (in bed), other is blind/deaf-had SC, smokes, can speak. History of diabetes mellitus, type II 07/15/2011 12/03/2022 F/u of acute inferior myocardial infarction 09/12/2008 01/24/2009 Overview (01/24/2009): Modified by Acute SC Protocol #5. Dyslipidemia, goal to be determined 09/12/2008 06/11/2009 Overview (06/11/2009): Per Lipid Taxonomy. Tobacco use disorder 012 documented as of this encounter (statuses as of 09/13/2024) Immunizations Name Administration Dates Next Due COVID-19, LNP-s, No Preserve , Osvaldo-sucrose, Ages 12+ ([employer]) 11/18/2021,05/13/2021,10/09/2020,09/02 COVID-19, MRNA-LNP, PF, 30 M CG/0.3 mL, 12 YRS AND ABOVE, IM (PFIZER-Comirnaty) 04/10/2024,2023,04/08/2023 Covid-19, Mrna, Lnp-s, Pf, B ivalent, 30 Mcg, IM, 12 yrs and above (Pfizer) 07/16/2022 Hepatitis B, 20+ yrs 04/17/2024,10/19/2023,09/14 Influenza, Whole Virus 05/13/1999 0 Pneumococcal Conjugate Vacc, 13 Valent (Prevnar) 05/16/2021 Pneumococcal Conjugate Vacci ne, 20-valent ([id number]) 06/02/2022 Pneumococcal Polysaccharide PPV23 (Pneumovax) 07/01/2011,05/19/2011 RSV [...] Date Smoking Tobacco: Every Day Cigarettes 1.5 42.9 Started: 10/04/2023 Smokeless Tobacco: Never Comments:started age [...] on file documented as of this encounter Progress Notes * Attila Belcher PA-C - 09/13/2024 1:23 PM EDTAssociated Order(s): LG Joint Inj/Arthro: R knee Post-Procedure Diagnose(s): Primary osteoarthritis of one knee, right Established patient with osteoarthritis of the right knee. Responded well to steroid injection approaching 3 months ago. Is diabetic and reports very little effect on her sugars. Most recent A1c 5.9.Inquiring about subsequent injections today. No new injury or fall. X-rays on file. No calf pain General: alert and oriented x3 female, no acute distress, appears currently stated age, pleasant, well nourished Skin: Right knee does not reveal any erythema, effusion, ecchymosis, abrasion, laceration, skin breakdown otherwise Neurovascular: Right left lower extremity is neurovascularly intact with good sensation strength throughout, calf supple nontender, toes were mobile, +5 strength dorsi and plantar flexion of the foot Musculoskeletal: Right knee ROM 0-100 secondary to joint pain, medial jointline tenderness, noted crepitation noted in PFJ, femoral condyles are tender as well. Ligamentously stable regarding cruciate and collateral ligaments. Extensor mechanism intact. No obvious cystic change or masses the popliteal fossa. Pes anserine bursa and patellar tendon nontender. Hip and ankle atraumatic X-rays of the right knee reveal [id number] joint space narrowing along the medial joint line withsclerosis and tricompartmental osteophytosis. Degenerative changes in the patellofemoral joint as well. No acute findings such as fracture dislocation or subluxation. Unable to identify any type of obvious cystic changes or masses in the bone. Official radiology report to follow accordingly Impression: Right knee osteoarthritis Plan: Today 's findings were discussed with the patient. They were educated regarding their diagnosis. Multiple treatment options discussed and agreed upon, including returning with a subsequent injection steroid for the right knee. Consent is on file. Patient will continue with conservative measures. It is not interested in any type of surgical discussion. Can follow up in 3-4 months for clinical reassessment. The patient has no other questions or concerns. Pleased with today 's care. Call sooner if needed. Patient instructed to call or return to clinic for fever or warmth and redness at injection site for potential infection. Patient also advised as to potential for steroid flare reaction including increased pain and redness at injection site which should be treated with ice and resolve within 24 hours. The patient is diabetic and aware that steroid injections can increase glucose levels associated with diabetes. Counseling has occurred regarding proper food choices over the next 72 hours to accommodate what is likely expected increase in glucose numbers on some level. Concerning symptoms and blood sugar glucose numbers should be reported the patient's PCP, and certainly, the emergency department he is to be considered if those levels of glucose and symptoms are worsening. Patient is aware andwilling to proceed accordingly. Written consent is obtained and is on file. LG Joint Inj/Arthro: R knee on 09/13/2024 1:24 PM Indications: pain Details: 22 G needle, anterolateral approach Medications: (Triamcinolone lidocaine) Outcome: tolerated well, no immediate complications Skin cleansed with alcohol and chlorhexidine x2, anesthetized with ethyl chloride, tolerated the injection well, free-flowing throughout the joint, hemostasis achieved Band-Aid applied. Procedure, treatment alternatives, risks and benefits explained, specific risks discussed. Consent was given by the patient. Immediately prior to procedure a time out was called to verify the correctpatient, procedure, equipment, support technician and site/side marked as required. Patient was prepped and draped in the usual sterile fashion. This chart was completed in part utilizing [employer] Speech Voice Recognition Software. Grammatical errors, random word insertions, prounoun errors, and incomplete sentences are an occasional consequence of this system due to software limitations, ambient noise, and hardware issues. Any formal questions or concerns about the content, text, or information contained within the body of this dictation should be directly addressed to the provider for clarification documented in this encounter Nursing Notes * Susannah Blackwell CMA - 09/13/2024 12:55 PM EDT Pt presents for R knee steroid injection Last injection: 06/14/24 - Susannah Albright CMA documented in this encounter Plan of Treatment Upcoming Encounters Date Type Department Care Team (Latest Contact Info) Description 09/20/2024 9:30 AM EDT Hospital Encounter ENDO OSSC, Endoscopy Room [facility] [address] [place] [phone] Iva Gaona DO [address] [place] [address] 09/20/2024 9:30 AM EDT - 09/20/2024 10:00 AM EDT Surgery ENDO OSSC, Endoscopy Room [facility] [address] [place] [phone] Iva Gaona DO [address] [place] [address] COLONOSCOPY FLEXIBLE PROXIMAL DIAGNOSTIC 09/26/2024 9:30 AM EDT Office Visit Cardiology [address] [place] [address] Lázaro Bolton PA-C [address] [place] [address] 10/11/2024 1:00 PM EDT Office Visit Family Medicine [address] [place] [phone] Radha Mccormick MD [address] [place] [address] [place] [address] 11/16/2024 8:30 AM EDT Office Visit Cardiology [address] [place] [address] Lázaro Bolton PA-C [address] [place] [address] 12/14/2024 9:15 AM EDT Office Visit Orthopaedics [facility] [address] [place] [phone] Attila Belcher PA-C [address] [place] [phone] 01/23/2025 3:30 PM EDT Office Visit Hematology/Oncology [facility] [address] [facility] [place] [phone] Myla Carlton CRNP [address] [facility] [place] [address] 04/12/2025 9:00 AM EDT Nurse Only Ancillary [address] [place] [address] [place], Nurse [address] [place] [address] Scheduled Procedures Name Priority Associated Diagnoses Date/Ti me COLONOSCOPY FLEXIBLE PROXIMAL DIAGNOSTIC Recall History of colon polyps Special screening for malignant neoplasms, colon 09/20/2024 9:30 AM EDT Health Maintenance Due Date Last Done Comments DISCUSS TOBACCO CESSATION (REFER TO SMARTSET #4080) 1950 Cologuard 1997 Fecal Occult Blood Test 1997 Sigmoidoscopy 1997 Colonoscopy 09/17/2023 09/16/2020, 09/02, 11/14/2012, Additional history exists Colorectal Cancer Screening 09/17/2023 Mammogram 09/07/2024 09/08/2023, 12/2023, 05/19/2022, Additional history exists COVID-19 Vaccine ( season) 2024 04/10/2024, 2023, 04/08/2023, Additional history exists Diabetic Foot Exam 12/20/2024 2023, 0 12/03/2022, 02/18/2022, Additional history exists HbA1c 2024 06/22/2024, 02/2 03/2024, 03/01/2023, Additional history exists Diabetic Eye Exam 02/23/2025 02/24/2024, , 10/29/2023, Additional history exists Adult Wellness Visit 04/10/2025 04/10/2024, 04/08/2023, 04/07/2022 Depression Monitoring 04/10/2025 04/10/2024 Albumin/Creatinine Ratio 06/22/2025 024, 09/15/2023, 06/02/2022, Additional history exists GFR 06/22/2025 06/22/2024, 04/1 12/2023, 09/02/2023, Additional history exists TSH 06/22/2025 06/22/2024, 07/0 09/2023, 12/08/2023, Additional history exists DXA Scan 10/08/2028 10/08/2021, [...] Not on filedocumented as of this encounter Procedures Procedure Name Priority Date/Time Associated Diagnosis Comments TX ARTHROCENTESIS ASPIR&/INJ MAJOR JT/BURSA W/O US Routine 09/13/2024 1:24 PM EDT Primary osteoarthritis of one knee, right documented in this encounter Results * TX ARTHROCENTESIS ASPIR&/INJ MAJOR JT/BURSA W/O US (09/13/2024 1:24 PM EDT) Narrative Attila Belcher PA-C - 09/13/2024 1:24 PM EDT Attila Belcher PA-C 09/13/2024 1:24 PM LG Joint Inj/Arthro: R knee on 09/13/2024 1:24 PM Indications: pain Details: 22 G needle, anterolateral approach Medications: (Triamcinolone lidocaine) Outcome: tolerated well, no immediate complications Skin cleansed with alcohol and chlorhexidine x2, anesthetized with ethyl chloride, tolerated the injection well, free-flowing throughout the joint, hemostasis achieved Band-Aid applied. Procedure, treatment alternatives, risks and benefits explained, specific risks discussed. Consent was given by the patient. Immediately prior to procedure a time out was called to verify the correct patient, procedure, equipment, support technician and site/side marked as required. Patient was prepped and draped in the usual sterile fashion. Attila Belcher PA-C PROCDOC FORM Final R esult documented in this encounter Visit Diagnoses Diagnosis Primary osteoarthritis of one knee, right- Primary History of colon polyps Personal history of colonic polyps Special screening for malignant neoplasms, colon documented in this encounter Administered Medications Inactive Administered Medications - up to 3 most recent administrations Medication Order MAR Action Action Date Dose Rate Site lidocaine 1% 1 mL - triamcinolone acetonide 40 mg/mL 1 mL inj 2 mL 2 mL, Injection, ONCE, On Wed09/13/24 at 1400, For 1 dose, Lidocaine 1% 1mL Triamcinolone Acetonide 40 mg/mL 1 mL (Final concentration = 20 mg/mL) REFRIGERATE and SHAKE WELLIndications:Primary osteoarthritis of one knee, right Given 09/13/2024 1:50 PM EDT 2 mL Knee Right documented in this encounter Care Teams Physical Chemist Relationship Specialty Start Date End Date Ron Quevedo CRNP [address] [address] [place] [address] PCP - General Nurse Practitioner 07/12/24 documented as of this encounter
--- OUTSIDE RECORDS SUMMARY | 2024-10-04 22:30 | External Medical Summary | Summary of Care ---
Author Name Unknown Organization [facility] Address [address] [facility] [place] [address] Phone [phone] Care Team Providers Care Library Technical Assistant Name Role Phone Sae, Rayaleksandarshelly Merline IRAIS Primary Care Provider Reason for Visit * Reason Comments Outpatient Testing Encounter Details Date Type Department Care Team (Late st Contact Info) Description 09/22/2024 1:10 PM EDT Laboratory Laboratory [address] [place] [phone] [facility] [address] [place] [address] Arrived Allergies No known active allergiesdocumented as [...] inferoposterior SC. Emergent catheterization at that time ([facility] - occluded RCA, 25% left main, 25% proximal LAD, 25% lesion in the AV groove of the LCX just before the 2nd OM, and a 90% followed by a 70% stenosis of the proximal OM#3. The PDA appeared large & filled via left to right collaterals) was complicated by RCA dissection requiring bare-metal stenting to the ostium for stabilization. She was transferred to [facility] though did not require further intervention. Follow-up CT scan on 04/05/2008 revealed a stent to the RCA that was completely occluded with reconstitution of flow in the distal RCA via collaterals. The finding were considered to be stable when compared to the CT from 03/15/2008 from [facility]. No aortic dissection observed. Moderate CAD observed [...] (Prevnar) 05/16/2021 Pneumococcal Conjugate Vacci ne, 20-valent ([id number]) 06/02/2022 Pneumococcal Polysaccharide PPV23 (Pneumovax) 07/01/2011,05/19/2011 RSV [...] 09/26/2024 9:30 AM EDT Office Visit Cardiology [address] [place] [address] Lázaro Bolton PA-C [address] [place] [address] 10/11/2024 1:00 PM EDT Office Visit Family Medicine [address] [place] [phone] Radha Mccormick MD [address] [place] [address] [place] [address] 11/14/2024 9:30 AM EDT Hospital Encounter ENDO OSSC, Endoscopy Room [facility] [address] [place] [phone] Lázaro Herrmann MD [address] [place] [address] 11/14/2024 9:30 AM EDT - 11/14/2024 10:00 AM EDT Surgery ENDO OSSC, Endoscopy Room [facility] [address] [place] [phone] Lázaro Herrmann MD [address] [place] [address] COLONOSCOPY FLEXIBLE PROXIMAL DIAGNOSTIC 11/16/2024 8:30 AM EDT Office Visit Cardiology [address] [place] [address] Lázaro Bolton, PAULA [address] [place] [address] 12/14/2024 9:15 AM EDT Office Visit Orthopaedics [facility] [address] [place] [phone] Attila Belcher PA-C [address] [place] [phone] 01/23/2025 3:30 PM EDT [facility] [place] [address] [facility] [place] [phone] Myla Carlton CRNP [address] [place] [address] 04/12/2025 9:00 AM EDT Nurse Only Ancillary [address] [place] [address] [place], Nurse [address] [place] [address] Scheduled Procedures Name Priority Associated Diagnoses Date/Ti me COLONOSCOPY FLEXIBLE PROXIMAL DIAGNOSTIC Recall History of colon polyps Special screening for malignant neoplasms, colon 11/14/2024 9:30 AM EDT Health Maintenance Due Date Last Done Comments DISCUSS TOBACCO CESSATION (REFER TO SMARTSET #9077) 1952 Cologuard 1997 Fecal Occult Blood Test [...] filedocumented as of this encounter Care Teams Library Technical Assistant Relationship Specialty Start Date End Date Ron Quevedo CRNP [address] [place] [address] [place] [phone] PCP - General Nurse Practitioner 07/12/24 documented as of this encounter
--- OUTSIDE RECORDS SUMMARY | 2024-10-04 22:30 | External Medical Summary | Summary of Care ---
Author Name Unknown Organization [facility] Address [address] [facility] [place] [address] Phone [phone] Care Team Providers Care Paper Cone Machine Tender Name Role Phone Sae, Rayaleksandarshelly Merline IRAIS Primary Care Provider Reason for Visit * Reason Comments Outpatient Testing Encounter Details Date Type Department Care Team (Late st Contact Info) Description 09/22/2024 1:10 PM EDT Laboratory Laboratory [address] [place] [address] [place] [phone] [facility] [address] [place] [address] Arrived Allergies No known active allergiesdocumented as [...] Overview (07/30/2011): ASCVD, March 13, 2008 inferoposterior CA. Emergent catheterization at that time ([facility] - occluded RCA, 25% left main, 25% proximal LAD, 25% lesion in the AV groove of the LCX just before the 2nd OM, and a 90% followed by a 70% stenosis of the proximal OM#3. The PDA appeared large & filled via left to right collaterals) was complicated by RCA dissection requiring bare-metal stenting to the ostium for stabilization. She was transferred to [facility] though did not require further intervention. Follow-up CT scan on 04/05/2008 revealed a stent to the RCA that was completely occluded with reconstitution of flow in the distal RCA via collaterals. The finding were considered to be stable when compared to the CT from 03/15/2008 from [facility]. No aortic dissection observed. Moderate [...] +normal EF, +wall motion abnormalities with old CA Lives w/ her 2 sisters--one with progressive MS (in bed), other is blind/deaf-had CA, smokes, can speak. History of diabetes mellitus, type II 07/15/2011 12/03/2022 F/u of acute inferior myocardial infarction 09/12/2008 01/24/2009 Overview (01/24/2009): Modified by Acute [place] Protocol #5. Dyslipidemia, goal to be determined [...] (Prevnar) 05/16/2021 Pneumococcal Conjugate Vacci ne, 20-valent ([id number]) 06/02/2022 Pneumococcal Polysaccharide PPV23 (Pneumovax) 07/01/2011,05/19/2011 RSV [...] 09/26/2024 9:30 AM EDT Office Visit Cardiology [address] [place] [address] Lázaro Bolton PA-C [address] [place] [address] 10/11/2024 1:00 PM EDT Office Visit Family Medicine [address] [place] [phone] Radha Mccormick MD [address] [place] [address] [place] [address] 11/14/2024 9:30 AM EDT Hospital Encounter ENDO OSSC, Endoscopy Room [facility] [address] [place] [phone] Lázaro Herrmann MD [address] [place] [address] 11/14/2024 9:30 AM EDT - 11/14/2024 10:00 AM EDT Surgery ENDO OSSC, Endoscopy Room [facility] [address] [place] [phone] Lázaro Herrmann MD [address] [place] [address] COLONOSCOPY FLEXIBLE PROXIMAL DIAGNOSTIC 11/16/2024 8:30 AM EDT Office Visit Cardiology [address] [place] [address] Lázaro Bolton, PAULA [address] [place] [address] 12/14/2024 9:15 AM EDT Office Visit Orthopaedics [facility] [address] [place] [phone] Attila Belcher PA-C [address] [place] [phone] 01/23/2025 3:30 PM EDT Office Visit [facility] [place] [address] [facility] [place] [phone] Myla Carlton CRNP [address] [place] [address] 04/12/2025 9:00 AM EDT Nurse Only Ancillary [address] [place] [address] [place], Nurse [address] [place] [address] Scheduled Procedures Name Priority Associated Diagnoses Date/Ti me COLONOSCOPY FLEXIBLE PROXIMAL DIAGNOSTIC Recall History of colon polyps Special screening for malignant neoplasms, colon 11/14/2024 9:30 AM EDT Health Maintenance Due Date Last Done Comments DISCUSS TOBACCO CESSATION (REFER TO SMARTSET #8724) 1950 Cologuard 1997 Fecal Occult Blood Test [...] filedocumented as of this encounter Care Teams Paper Cone Machine Tender Relationship Specialty Start Date End Date Ron Quevedo CRNP [address] [place] [address] [place] [phone] PCP - General Nurse Practitioner 07/12/24 documented as of this encounter
--- OUTSIDE RECORDS SUMMARY | 2024-10-04 22:30 | External Medical Summary | Summary of Care ---
Author Name Unknown Organization [facility] Address [address] [facility] [place] [address] Phone [phone] Care Team Providers Care Roll Press Operator Name Role Phone Sae, Rayaleksandarshelly Merline IRAIS Primary Care Provider Reason for Visit * Reason Comments Outpatient Testing Encounter Details Date Type Department Care Team (Late st Contact Info) Description 09/22/2024 1:10 PM EDT Laboratory Laboratory [address] [place] [phone] [facility] Lab [address] [place] [address] Arrived Allergies No known active allergiesdocumented as [...] Overview (07/30/2011): ASCVD, March 13, 2008 inferoposterior [place]. Emergent catheterization at that time ([facility] - occluded RCA, 25% [...] ostium for stabilization. She was transferred to [facility] though did not require further intervention. Follow-up CT scan on 04/05/2008 revealed a stent to the RCA that was completely occluded with reconstitution of flow in the distal RCA via collaterals. The finding were considered to be stable when compared to the CT from 03/15/2008 from [facility]. No aortic dissection observed. Moderate CAD observed [...] +normal EF, +wall motion abnormalities with old MT Lives w/ her 2 sisters--one with progressive MS (in bed), other is blind/deaf-had MT, smokes, can speak. History of diabetes mellitus, type II 07/15/2011 12/03/2022 F/u of acute inferior myocardial infarction 09/12/2008 01/24/2009 Overview (01/24/2009): Modified by Acute [place] Protocol #5. Dyslipidemia, goal to be determined [...] (Prevnar) 05/16/2021 Pneumococcal Conjugate Vacci ne, 20-valent ([id number]) 06/02/2022 Pneumococcal Polysaccharide PPV23 (Pneumovax) 07/01/2011,05/19/2011 RSV [...] 09/26/2024 9:30 AM EDT Office Visit Cardiology [address] [place] [address] Lázaro Bolton PA-C [address] [place] [address] 10/11/2024 1:00 PM EDT Office Visit Family Medicine [address] [place] [phone] Radha Mccormick MD [address] [place] [address] [place] [address] 11/14/2024 9:30 AM EDT Hospital Encounter ENDO OSS[facility], Endoscopy Room [facility] [address] [place] [phone] Lázaro Herrmann MD [address] [place] [address] 11/14/2024 9:30 AM EDT - 11/14/2024 10:00 AM EDT Surgery ENDO [facility], Endoscopy Room [facility] [address] [place] [phone] Lázaro Herrmann MD [address] [place] [address] COLONOSCOPY FLEXIBLE PROXIMAL DIAGNOSTIC 11/16/2024 8:30 AM EDT Office Visit Cardiology [address] [place] [address] Lázaro Bolton, PAULA [address] [place] [address] 12/14/2024 9:15 AM EDT Office Visit Orthopaedics [facility] [address] [place] [phone] Attila Belcher PA-C [address] [place] [phone] 01/23/2025 3:30 PM EDT Office Visit Hematology/On[facility] [place] [address] [facility] [place] [phone] Myla Carlton CRNP [address] [place] [address] 04/12/2025 9:00 AM EDT Nurse Only Ancillary [address] [place] [address] Movjacqueline, Nurse [address] [place] [address] Scheduled Procedures Name Priority Associated Diagnoses Date/Ti me COLONOSCOPY FLEXIBLE PROXIMAL DIAGNOSTIC Recall History of colon polyps Special screening for malignant neoplasms, colon 11/14/2024 9:30 AM EDT Health Maintenance Due Date Last Done Comments DISCUSS TOBACCO CESSATION (REFER TO SMARTSET #2397) 1950 Cologuard 1997 Fecal Occult Blood Test [...] filedocumented as of this encounter Care Teams Roll Press Operator Relationship Specialty Start Date End Date Ron Quevedo CRNP [address] [place] [address] [place] [phone] PCP - General Nurse Practitioner 07/12/24 documented as of this encounter
--- OUTSIDE RECORDS SUMMARY | 2024-10-04 22:30 | External Medical Summary | Summary of Care ---
Author Name Unknown Organization [facility] Address [address] [facility] [address] Phone [phone] Care Team Providers Care Credit Office Manager Name Role Phone Ron Quevedo Primary Care Provider Encounter Details Date Type Department Care Team (Late st Contact Info) Description 09/15/2024 Orders Only Family Medicine [address] [place] [phone] Ron Quevedo CRNP [address] [place], [place] [address] [address] Allergies No known active allergiesdocumented as of this encounter (statuses as of 09/15/2024) Medications ASPIRIN 81 MG PO TABS 1 [...] as of this encounter (statuses as of 09/15/2024) Active Problems Problem Noted Date Diagnosed Date [...] Overview (07/30/2011): ASCVD, March 13, 2008 inferoposterior [place]. Emergent catheterization at that time ([facility] - occluded RCA, 25% left main, [...] ostium for stabilization. She was transferred to [facility] though did not require further intervention. Follow-up CT scan on 04/05/2008 revealed a stent to the RCA that was completely occluded with reconstitution of flow in the distal RCA via collaterals. The finding were considered to be stable when compared to the CT from 03/15/2008 from [facility]. No aortic dissection observed. Moderate CAD observed [...] as of this encounter (statuses as of 09/15/2024) Resolved Problems Problem Noted Date Diagnosed Date [...] +normal EF, +wall motion abnormalities with old OH Lives w/ her 2 sisters--one with progressive MS (in bed), other is blind/deaf-had [place], smokes, can speak. History of diabetes mellitus, type II 07/15/2011 12/03/2022 F/u of acute inferior myocardial infarction 09/12/2008 01/24/2009 Overview (01/24/2009): Modified by Acute [place] Protocol #5. Dyslipidemia, goal to be determined 09/12/2008 06/11/2009 Overview (06/11/2009): Per Lipid Taxonomy. Tobacco use disorder 012 documented as of this encounter (statuses as of 09/15/2024) Immunizations Name Administration Dates Next Due COVID-19, LNP-s, No Preserve , Osvaldo-sucrose, Ages 12+ (Pfizer) 11/18/2021,05/13/2021,10/09/2020,09/18 COVID-19, MRNA-LNP, PF, 30 M CG/0.3 mL, 12 YRS AND ABOVE, IM (PFIZER-Comirnaty) 04/10/2024,2023,04/08/2023 Covid-19, Mrna, Lnp-s, Pf, B ivalent, 30 Mcg, IM, 12 yrs and above (Pfizer) 07/16/2022 Hepatitis B, 20+ yrs 04/17/2024,10/19/2023,09/14 Pneumococcal Conjugate Vacc, 13 Valent (Prevnar) 05/16/2021 Pneumococcal Conjugate Vacci ne, 20-valent ([id number]) 06/02/2022 Pneumococcal Polysaccharide PPV23 (Pneumovax) 07/01/2011,05/19/2011 RSV [...] No 04/10/2024 Does the household have a [facility] source of income? (Household - for ages [...] EDT Hospital Encounter ENDO [facility], Endoscopy Room [facility] [address] [place] [phone] Iva Gaona DO [address] [place] [address] 09/20/2024 9:30 AM EDT - 09/20/2024 10:00 AM EDT Surgery ENDO [facility], Endoscopy Room [facility] [address] [place] [phone] Iva Gaona DO [address] [place] [address] COLONOSCOPY FLEXIBLE PROXIMAL DIAGNOSTIC 09/26/2024 9:30 AM EDT Office Visit Cardiology [address] [place] [address] Lázaro Bolton PA-C [address] [place] [address] 10/11/2024 1:00 PM EDT Office Visit Family Medicine [address] [place] [phone] Radha Mccormick MD [address] [place] [address] [place] [address] 11/16/2024 8:30 AM EDT Office Visit Cardiology [address] [place] [address] Lázaro Bolton PA-C [address] [place] [address] 12/14/2024 9:15 AM EDT Office Visit Orthopaedics [facility] [address] [place] [phone] Attila Belcher PA-C [address] [place] [phone] 01/23/2025 3:30 PM EDT Office Visit Hematology[facility]On[facility] [address] [facility] [phone] Myla Carlton CRNP [address] [facility] [place] [address] 04/12/2025 9:00 AM EDT Nurse Only Ancillary [address] [place] [address] Movjacqu[place], Nurse [address] [place] [address] Scheduled Procedures Name Priority Associated Diagnoses Date/Ti me COLONOSCOPY FLEXIBLE PROXIMAL DIAGNOSTIC Recall History of colon polyps Special screening for malignant neoplasms, colon 09/20/2024 9:30 AM EDT Health Maintenance Due Date Last Done Comments DISCUSS TOBACCO CESSATION (REFER TO SMARTSET #5760) 1950 Cologuard 1997 Fecal Occult Blood Test [...] Procedure Name Priority Date/Time Associated Diagnosis Comments MAMMOGRAM SCREENING BILATERAL Routine 09/13/2024 documented in this encounter Results * MAMMOGRAM SCREENING BILATERAL (09/13/2024) Anatomical Region Laterality Modality Breast Bilateral Other 09/13/2024 Radha oRnquillo MD RAD MAMMOGRAPHY Fi nal Result documented in this encounter Care Teams Credit Office Manager Relationship Specialty Start Date End Date Ron Quevedo CRNP [address] [place] [address] [place] [phone] PCP - General Nurse Practitioner 07/12/24 documented as of this encounter
--- OUTSIDE RECORDS SUMMARY | 2024-10-04 22:30 | External Medical Summary | Summary of Care ---
Author Name Unknown Organization [facility] Address [address] [facility] [place] [address] Phone [phone] Care Team Providers Care Personal Banking Officer Name Role Phone Ron Quevedo IRAIS Primary Care Provider Reason for Visit * Reason Comments Pain Pt presents for R kn ee steroid injection Encounter Details Date Type Department Care Team (Latest Contact Info) Description 09/13/2024 1:15 PM EDT Office Visit Orthopaedics [facility] [address] [place] [phone] [...] Overview (07/30/2011): ASCVD, March 13, 2008 inferoposterior [place]. Emergent catheterization at that time ([facility] - occluded RCA, 25% left [...] ostium for stabilization. She was transferred to [facility] though did not require further intervention. Follow-up CT scan on 04/05/2008 revealed a stent to the RCA that was completely occluded with reconstitution of flow in the distal RCA via collaterals. The finding were considered to be stable when compared to the CT from 03/15/2008 from [facility]. No aortic dissection observed. Moderate CAD observed [...] +normal EF, +wall motion abnormalities with old NE Lives w/ her 2 sisters--one with progressive MS (in bed), other is blind/deaf-had [place], smokes, can speak. History of diabetes mellitus, type II 07/15/2011 12/03/2022 F/u of acute inferior myocardial infarction 09/12/2008 01/24/2009 Overview (01/24/2009): Modified by Acute [place] Protocol #5. Dyslipidemia, goal to be determined 09/12/2008 06/11/2009 Overview (06/11/2009): Per Lipid Taxonomy. Tobacco use disorder 012 documented as of this encounter (statuses as of 09/13/2024) Immunizations Name Administration Dates Next Due COVID-19, LNP-s, No Preserve , Osvaldo-sucrose, Ages 12+ ([employer]) 11/18/2021,05/13/2021,10/09/2020,09/02 COVID-19, MRNA-LNP, PF, 30 M CG/0.3 mL, 12 YRS AND ABOVE, IM (PFIZER-Comirnaty) 04/10/2024,2023,04/08/2023 Covid-19, Mrna, Lnp-s, Pf, B ivalent, 30 Mcg, IM, 12 yrs and above (Pfizer) 07/16/2022 Hepatitis B, 20+ yrs 04/17/2024,10/19/2023,09/14 Influenza, Whole Virus 05/13/1999 0 Pneumococcal Conjugate Vacc, 13 Valent (Prevnar) 05/16/2021 Pneumococcal Conjugate Vacci ne, 20-valent ([id number]) 06/02/2022 Pneumococcal Polysaccharide PPV23 (Pneumovax) 07/01/2011,05/19/2011 RSV [...] atraumatic X-rays of the right knee reveal [id number] joint space narrowing along the medial joint [...] called to verify the correctpatient, procedure, equipment, manager product support and site/side marked as required. Patient was prepped and draped in the usual sterile fashion. This chart was completed in part utilizing [employer] Speech Voice Recognition Software. Grammatical errors, random [...] EDT Hospital Encounter ENDO OSS[facility], Endoscopy Room [facility] [address] [place] [phone] Iva Gaona DO [address] [place] [address] 09/20/2024 9:30 AM EDT - 09/20/2024 10:00 AM EDT Surgery ENDO [facility], Endoscopy Room [facility] [address] [place] [phone] Iva Gaona DO [address] [place] [address] COLONOSCOPY FLEXIBLE PROXIMAL DIAGNOSTIC 09/26/2024 9:30 AM EDT Office Visit Cardiology [address] [place] [address] Lázaro Bolton PA-C [address] [place] [address] 10/11/2024 1:00 PM EDT Office Visit Family Medicine [address] [place] [phone] Radha Mccormick MD [address] [place] [address] [place] [address] 11/16/2024 8:30 AM EDT Office Visit Cardiology [address] [place] [address] Lázaro Bolton PA-C [address] [place] [address] 12/14/2024 9:15 AM EDT Office Visit Orthopaedics [facility] [address] [place] [phone] Attila Belcher PA-C [address] [place] [phone] 01/23/2025 3:30 PM EDT Office Visit Hematology/Oncology [facility] [phone] Myla Carlton CRNP [address] [facility] [place] [address] 04/12/2025 9:00 AM EDT Nurse Only Ancillary [address] [place] [address] [place], Nurse [address] [place] [address] Scheduled Procedures Name Priority Associated Diagnoses Date/Ti me COLONOSCOPY FLEXIBLE PROXIMAL DIAGNOSTIC Recall History of colon polyps Special screening for malignant neoplasms, colon 09/20/2024 9:30 AM EDT Health Maintenance Due Date Last Done Comments DISCUSS TOBACCO CESSATION (REFER TO SMARTSET #2182) 1950 Cologuard 1997 Fecal Occult Blood Test [...] Procedure Name Priority Date/Time Associated Diagnosis Comments WI ARTHROCENTESIS ASPIR&/INJ MAJOR JT/BURSA W/O US Routine 09/13/2024 1:24 PM EDT Primary osteoarthritis of one knee, right documented in this encounter Results * WI ARTHROCENTESIS ASPIR&/INJ MAJOR JT/BURSA W/O US (09/13/2024 [...] to verify the correct patient, procedure, equipment, manager product support and site/side marked as required. Patient was [...] Right documented in this encounter Care Teams Personal Banking Officer Relationship Specialty Start Date End Date Ron Quevedo CRNP [address] [place] [address] [place] [address] PCP - General Nurse Practitioner 07/12/24 documented as of this encounter
[2024-10-05] MEDS: LEVOTHYROXINE SODIUM 100 MCG TABLET PO SCH (05:43)
[2024-10-05] MEDS: LACTATED RINGER'S 1,000 ML IV SCH (07:28)
[2024-10-05] MEDS ORDERED: ROCURONIUM BROMIDE 10 MG/ML 5 ML VIAL IV ONE ×2 (07:39)
[2024-10-05] MEDS ORDERED: fentaNYL citrate PF 100 MCG/2 ML VIAL ONE (07:39)
[2024-10-05] MEDS ORDERED: PROPOFOL IV EMULSION 10 MG/ML 20 ML VIAL IV ONE (07:39)
[2024-10-05] MEDS ORDERED: DexMEDEtomidine HCL IV 100 MCG/ML VIAL IV ONE (07:39)
[2024-10-05] MEDS ORDERED: ARTIFICIAL TEARS OP OINT 3.5 GM TUBE ONE (07:46)
--- NOTE | 2024-10-05 08:03 | History & Physical Bridge Note ---
Date of Service October 05, 2024 History & Physical Bridge Note I have examined the patient, reviewed the History & Physical and in the interval since the performance of the History & Physical I have noted the following changes of clinical significance: no changes noted Lisbeth is a pleasant 73-year-old female who presents to the hospital after a ground-level fall wherein she sustained a closed, traumatic, displaced left intertrochanteric hip fracture. I had a long discussion with the patient and her son who joins her at bedside today with regards to the nature of this injury. We discussed in great detail the anatomy, pathoanatomy, pathophysiology, treatment options. I expressed to them that in general, hip fractures in elderly patients are managed operatively in order to help with pain control and sooner ambulation. I expressed to them that hip fractures do often times represent "the beginning of the end" of the patient's life as they often times are sustained in patients who are beginning to deteriorate. I expressed this to them and very clear terms and they expressed understanding. I also expressed to them that even if hip fractures treated operatively, often times patients have a decrease in ambulatory/functional status. I explained to the patient and her son that considering she was walking without ambulatory aid, even after full recovery from a hip fracture, she may require ambulatory aid in the future. They expressed understanding to this. Given the patient's preoperative ambulatory status as well as her level of function, my recommendation is for closed versus open reduction and internal fixation of the left hip using a cephalomedullary nail. I explained to the patient and her son that there are risks with the surgery that include but are not limited to loss of life/limb, DVT, incomplete relief of pain, need for additional surgery, nonunion, malunion, hardware complication, hardware failure, infection, iatrogenic injury to bone/nerve/tendon/vessel, decrease in ambulatory status, and decrease in functional status. I explained to them that the alternatives to operative management be for nonoperative care, however the risks associate with nonoperative care include complications of immobilization such as decubitus ulcers, DVT, pneumonia. The benefits of operative intervention are for pain control and sooner ambulation. After thorough discussion of the risk, benefits, alternatives to surgical management, the patient and her son are interested in operative intervention. We planned to proceed to the operating room last evening, however emergent cases bumped her case to first thing this morning. The patient has been n.p.o. since midnight
[2024-10-05] MEDS ORDERED: ONDANSETRON INJ 2 MG/ML 2 ML VIAL IV PRN (08:04)
[2024-10-05] MEDS ORDERED: ATROPINE SULFATE 0.1 MG/ML 10ML SYR IV PRN (08:04)
[2024-10-05] MEDS ORDERED: ePHEDrine sulfate 50 MG/ML AMP IV PRN (08:04)
[2024-10-05] MEDS ORDERED: fentaNYL citrate PF 100 MCG/2 ML VIAL IV PRN (08:04)
[2024-10-05] MEDS: ceFAZolin 2000MG 2,000 MG/15 ML SYR IV ONE (08:22)
[2024-10-05] MEDS: TRANEXAMIC ACID / 0.7% NACL 1,000 MG/100 ML BAG IV ONE (08:50)
[2024-10-05] MEDS ORDERED: ONDANSETRON INJ 2 MG/ML 2 ML VIAL ONE (08:57)
[2024-10-05] MEDS ORDERED: DEXAMETHASONE SOD INJ 4 MG/ML VIAL ONE (08:57)
[2024-10-05] MEDS: ceFAZolin 2,000 MG/15 ML IV PUSH IV ONE (09:21)
[2024-10-05] MEDS ORDERED: SUGAMMADEX SODIUM 200 MG/2 ML VIAL IV ONE (09:43)
--- NOTE | 2024-10-05 10:34 | Post Operative Brief Note ---
Immediate Post Op Note Date of Surgery October 05, 2024 Pre & Post Diagnosis Operation Date: 10/05/24 08:15 Pre-Op Diagnosis: Intertrochanteric fracture of left hip Post-Op Diagnosis: Intertrochanteric fracture of left hip I identified the patient and participated in the time-out.: Yes Procedure Operation Date: 10/05/24 08:15 Actual Procedures p Open Reduction of Left Hip, Cephalomedullary nail placement guided with fluoroscopy(Left) - Cyril Santoyo DO 1. Closed reduction cephalomedullary nailing left hip 2. Physician directed fluoroscopy greater than 1 hour Surgeon Cyril Santoyo DO Staple Laster none Estimated Blood Loss 200 Findings Consistent with Post-Op Diagnosis Complications none Disposition Disposition: Recovery Room Overlapping Procedure I was present for: the critical portions of procedure. (the entire case)
--- NOTE | 2024-10-05 10:57 | Operative Report ---
Post Operative Report Pre & Post Diagnosis Operation Date: 10/05/24 08:15 Pre-Op Diagnosis: Intertrochanteric fracture of left hip Post-Op Diagnosis: Intertrochanteric fracture of left hip I identified the patient and participated in the time-out.: Yes Procedure Operation Date: 10/05/24 08:15 Actual Procedures p Open Reduction of Left Hip, Cephalomedullary nail placement guided with fluoroscopy(Left) - Cyril Santoyo DO 1. Closed reduction cephalomedullary nailing left hip 2. Physician directed fluoroscopy greater than 1 hour Surgeon Cyril Santoyo DO Cartridge Loading Operator none Estimated Blood Loss 200 Findings Consistent with Post-Op Diagnosis Specimens None Complications None immediately apparent Disposition Disposition: Recovery Room Indications Lisbeth is a pleasant 73-year-old female who presents to the hospital after a ground-level fall wherein she sustained a closed, traumatic, displaced left intertrochanteric hip fracture. I had a long discussion with the patient and her son who joins her at bedside today with regards to the nature of this injury. We discussed in great detail the anatomy, pathoanatomy, pathophysiology, treatment options. I expressed to them that in general, hip fractures in elderly patients are managed operatively in order to help with pain control and sooner ambulation. I expressed to them that hip fractures do often times represent "the beginning of the end" of the patient's life as they often times are sustained in patients who are beginning to deteriorate. I expressed this to them and very clear terms and they expressed understanding. I also expressed to them that even if hip fractures treated operatively, often times patients have a decrease in ambulatory/functional status. I explained to the patient and her son that considering she was walking without ambulatory aid, even after full recovery from a hip fracture, she may require ambulatory aid in the future. They expressed understanding to this. Given the patient's preoperative ambulatory status as well as her level of f unction, my recommendation is for closed versus open reduction and internal fixation of the left hip using a cephalomedullary nail. I explained to the patient and her son that there are risks with the surgery that include but are not limited to loss of life/limb, DVT, incomplete relief of pain, need for additional surgery, nonunion, malunion, hardware complication, hardware failure, infection, iatrogenic injury to bone/nerve/tendon/vessel, decrease in ambulatory status, and decrease in functional status. I explained to them that the alternatives to operative management be for nonoperative care, however the risks associate with nonoperative care include complications of immobilization such as decubitus ulcers, DVT, pneumonia. The benefits of operative intervention are for pain control and sooner ambulation. After thorough discussion of the risk, benefits, alternatives to surgical management, the patient and her son are interested in operative intervention. We planned to proceed to the operating room last evening, however emergent cases bumped her case to first thing this morning. The patient has been n.p.o. since midnight Description of Procedure After informed consent was obtained, the patient was correctly identified in the preoperative holding suite, the operative site was marked with the surgeon's initials, the date of surgery, and the word yes. The patient was then taken to the operative suite. The department of anesthesia administered general anesthesia. [facility]. All bony prominences were well-padded. Briefing and timeout was performed. All implants were available and sterile at the time. BRIEFING AND DEBRIEFING: Pre and post operative briefing and debriefing was performed. Introductions were made, goals of the procedure were discussed, questions and concerns were addressed. The operative site markings were identified and appropriate. A time [id number] was performed, the patient's correct identity was confirmed and the correct operative sites were identified. The patients pre-operative antibiotic dosing and administration was confirmed along with other SCIP measures. The team was polled at the completion of the surgery and all team members were in agreement that the procedure was without complication, the counts are correct, the wound class was identified and suggestions for improvement were shared. After anesthesia was induced, the traction boots were placed on the patient's feet and she was transferred in supine fashion [facility] the [facility] to the [facility]. We then draped the ipsilateral arm across the chest well-padded and placed the contralateral arm out on a well-padded arm board. We brought in fluoroscopy and performed a closed reduction of the hip such that the alignment was appropriate. Once we were satisfied, we would prepped and draped the left lower extremity in standard sterile fashion using a Ioban shower curtain. We then used fluoroscopy to benji out the anatomy of the proximal femur and planned our incision approximately 3 cm in length 2 cm proximal to the tip of the greater trochanter in line with the femoral shaft on the lateral view. We made our incision sharply through skin and subcutaneous tissue and then dissected bluntly using curved Hernandez scissors down to the tip of the greater trochanter. We selected the starting wire and advanced this on biplanar fluoroscopy into the femoral canal after an appropriate start point was achieved on the tip of the greater trochanter. We checked its position on fluoroscopy and once we were satisfied, introduced the opening reamer over the guidewire. Next, we inserted the ball-tipped guidewire, and we had initially anticipated doing a long nail, however the largest diameter nail we had available to us was 10 mm, so we opted for an 11 mm intermediate nail length. We would ream over the guidewire to a 12-1/2 mm and then attached the nail onto the insertion handle. This was placed into the femoral canal over the guidewire and the guidewire was then removed. We impacted this until the anticipated trajectory of our lag bolt was appropriate the low within the femoral neck and once we were satisfied, we made an incision on the lateral aspect of the leg and introduced to the targeting jig for the lag bolt. We checked on biplanar fluoroscopy such that we were satisfied with the trajectory and advanced this into the femoral head. Next, due to the basicervical nature of this fracture, we placed a stabil ization wire outside of the nail across the fracture line to help prevent rotation of the fracture. We would then measured the guidewire, select a 105 mm lag bolt, and drill over the guidewire into the femoral head and then placed the lag bolt. Once you are satisfied with the placement of the lag bolt, we tightened down the proximal locking knot and backed it off one quarter turn. We then removed the supplementary reduction wire, compressed through the jig to achieve appropriate reduction of the fracture, and checked this on biplanar fluoroscopy. Once we were satisfied, we would remove the wire from the lag bolt and the targeting device and placed a single interlocking screw in static position distally through the targeting jig. We then remove the insertion handle, checked final fluoroscopic images and were satisfied with the reduction and stability of the implants. We then began a thorough irrigation using sterile saline followed by a layered closure using 0 Vicryl in the deep fascia, 2-0 Vicryl in the subcutaneous tissue and a running 3-0 Monocryl in the subcuticular tissue. We then applied Dermabond, Acticoat Flex, and a tre negative pressure dressing. The patient tolerated this procedure well and was transferred to the PACU in stable condition. Prior to transportation to PACU, all counts were correct and a briefing was performed at the end of the case. Physician-directed fluoroscopy for greater than one hour was performed by myself to verify fracture alignment and the safe placement of all internal fixation. The final images saved to PACs showed views demonstrating satisfactory alignment of the fracture and stable internal fixation. Implant verification was performed by myself by reading and confirming the implant information on the packaging with the team before the sterile implants were opened. I was present for the entire procedure. Plan: Weight bearing status: As tolerated left lower extremity Wound care: Keep dressings clean and dry Range of motion: As tolerated VTE Prophylaxis: Okay to begin from orthopedic standpoint Antibiotics: Perioperative Ancef Pain Control: Multimodal Vitamin D Replacement: Labs pending Discharge Plan: Pending PT/OT Follow Up: With myself in 2 weeks Implants: synthes 11 mm x 130 degree x 235 mm left intermediate TFN alpha nail Lag bolt: 105 mm Interlocking screw: 38 mm I attest to the content of the Intraoperative Record and any orders documented therein. Any exceptions are noted below.
--- NOTE | 2024-10-05 11:09 | XRay Report ---
XR hip LT min 2V CLINICAL HISTORY: postop hip fracture COMPARISON: 10/04/2024 FINDINGS: 2 postop views of the left hip demonstrate a short intramedullary nail and oblique screw t ransfixing a nondisplaced intertrochanteric fracture of the proximal left femur. Hardware satisfactor y position and alignment. IMPRESSION: As above ACT 112: Negative or not required by law. Electronically signed by: Ana Lilia Mg M.D. 10/05/2024 11:08 AM
[2024-10-05 11:54] LABS: Hemoglobin 12.5 g/dl (12.0-16.0); Mean Corpuscular Hemoglobin 32.5 pg (25.0-34.0); Mean Corpuscular Hgb Conc 33.8 g/dL (32.0-36.0); Mean Corpuscular Volume 96.1 fL (80.0-100.0); Mean Platelet Volume 10.9 fL (9.4-12.4); Platelet Count 126 K/uL (130-400); RDW Coefficient of Variation 12.8 % (11.5-14.5); RDW Standard Deviation 44.4 fL (36.4-46.3); Red Blood Count 3.85 M/uL (4.20-5.40); White Blood Count 7.57 K/ul (4.8-10.8)
[2024-10-05] MEDS: ATORVASTATIN 40 MG TAB PO SCH (12:04)
[2024-10-05] MEDS: DULoxetine HCL 60 MG CAP PO SCH (12:04)
--- NOTE | 2024-10-05 12:07 | Fluoroscopy Report ---
FL hip LT 2-3V CLINICAL HISTORY: LEFT TROCH NAIL COMPARISON STUDY: 10/04/2024 FLUOROSCOPY TIME: 4 minutes and 14 seconds FLUOROSCOPY IMAGES: 9 EXPOSURE DOSE: 79 mGy FINDINGS: Fluoroscopic guidance for ORIF intertrochanteric fracture proximal left femur IMPRESSION: Please refer to the procedure report for evaluation based upon real time fluoroscopic obs ervation. ACT 112: Negative or not required by law. Electronically signed by: Ana Lilia Mg M.D. 10/05/2024 12:06 PM
--- NOTE | 2024-10-05 12:08 | Anesthesiology Progress Note ---
Date of Service October 05, 2024 Anesthesia Post Procedure Vital Signs Vital Signs: Temp Pulse Pulse Pulse Resp BP BP 10/05/24 11:30 36.6 C 74 20 10/05/24 11:10 36.5 C 81 20 10/05/24 11:00 82 19 10/05/24 10:50 81 17 10/05/24 10:40 89 18 10/05/24 10:33 36.2 C L 86 20 10/05/24 06:53 36.5 C 74 20 10/05/24 05:42 36.7 C 75 10/05/24 01:12 36.5 C 72 96/60 L 10/04/24 20:05 36.6 C 70 16 96/61 L 10/04/24 19:48 10/04/24 19:45 10/04/24 19:45 36.6 C 70 96/61 L 10/04/24 18:07 36.7 C 72 18 108/68 10/04/24 17:00 36.6 C 75 16 100/51 L 10/04/24 16:35 72 10/04/24 16:00 36.7 C 73 16 110/50 L 10/04/24 15:00 36.5 C 72 18 151/94 H 10/04/24 14:39 70 18 144/113 H 10/04/24 13:39 10/04/24 13:39 36.4 C 70 13 129/62 10/04/24 13:39 36.4 C 70 16 129/62 10/04/24 12:42 61 10/04/24 12:33 62 14 10/04/24 12:23 36.4 C L 62 13 130/78 BP Pulse Ox Pulse Ox O2 Del Method O2 Del Method O2 Flow Rate 10/05/24 11:30 97/60 L 95 Room Air 10/05/24 11:10 95/49 L 94 Nasal Cannula 4 10/05/24 11:00 96/51 L 92 Nasal Cannula 4 10/05/24 10:50 89/53 L 88 L Nasal Cannula 4 10/05/24 10:40 96/58 L 89 L Nasal Cannula 4 10/05/24 10:33 93/47 L 85 L Room Air 10/05/24 06:53 101/59 L 92 Room Air 10/05/24 05:42 96/62 L 92 Room Air 10/05/24 01:12 93 Room Air 10/04/24 20:05 94 Room Air 10/04/24 19:48 94 Room Air 10/04/24 19:45 Room Air 10/04/24 19:45 94 Room Air 10/04/24 18:07 95 Room Air 10/04/24 17:00 95 Room Air 10/04/24 16:35 10/04/24 16:00 96 Room Air 10/04/24 15:00 95 Room Air 10/04/24 14:39 98 Room Air 10/04/24 13:39 97 Room Air 10/04/24 13:39 97 Room Air 10/04/24 13:39 97 Room Air 0 10/04/24 12:42 10/04/24 12:33 99 Room Air 10/04/24 12:23 99 Room Air Pain Intensity Left Hip: Pain Intensity: 3 Transfer of Care Handoff Completed per policy Notes Mental Status: alert / awake / arousable Patient Amnestic to Procedure: Yes Nausea / Vomiting: adequately controlled Pain: adequately controlled Airway Patency, RR, SpO2: stable & adequate (supplemental O2) BP & HR: stable & adequate Hydration State: stable & adequate Anesthetic Complications: no major complications apparent
[2024-10-05 12:09] LABS: BUN Creatinine Ratio 21.2 (10-20); Calcium 8.2 mg/dl (8.6-10.3); Creatinine Clr Calc Pharmacy 106.2 ml/min
[2024-10-05 12:39] LABS: Estimated Average Glucose 126 mg/dl
--- NOTE | 2024-10-05 13:03 | Hospitalist Progress Note ---
Date of Service October 05, 2024 Assessment & Plan (1) Intertrochanteric fracture of left hip: Plan 73 yo F w/ PMH of CAD, [place] in 2007 with complication of RCA dissection requiring bare-metal stent to ostium for stabilization, HTN, HLD, DM II, hypothyroidism, tobacco use, polycythemia, left breast CVA s/p lumpectomy, radiation, GERD, obesity presented to ER with complaint of fall and left hip pain. Denied hitting head, LOC or syncope. Denied dizziness, CP, SOB prior to fall. She is being managed for the following: Fracture of femur, left, closed: Fall: Hip/pelvis xray: Nondisplaced intertrochanteric fracture proximal left femur. Left femur xray: Nondisplaced intertrochanteric fracture redemonstrated. No additional femoral injury is appreciated. CXR: No acute process. Ortho on board: Open Reduction of Left Hip, Cephalomedullary nail placement guided with fluoroscopy(Left) 10/05 Pain control with scheduled Tylenol, oxycodone, morphine prn Incentive spirometry f/u labs, watch out for blood loss anemia delirium precautions HO CAD (coronary artery disease): 03/13/08: inferoposterior [place]. Emergent catheterization complicated by RCA dissection requiring bare-metal stenting to the ostium for stabilization. 10/29/16 [place] [facility] [place] with atypical chest pain, mildly abnormal EKG, and abnormal nuclear stress testing. Catheterization showed no progression of disease in the LCA; large LM, LAD, and two large LCX branches which were not compromised. There was only a small degree of collateral flow from the LAD septals to the RPDA. The RCA was patent but with a very long complex lesion extending 1/[address] representing recanalization. The risks of stenting the proximal RCA lesion were felt to be greater than the benefit thus medical management was advised 10/21/23 echo: EF: 55-59%, grade 1 diastolic dysfunction, aortic valve sclerosis without stenosis, severe mitral annular calcification, mild mitral regurgitation 12/08/23 Lexiscan Interpretation Summary: Normal Lexiscan myocardial perfusion imaging study without evidence of inducible ischemia, or myocardial scar. Gated SPECT images reveals normal myocardial thickening and wall motion. The LV ejection fraction is calculated at >70%. Denies CP, SOB, or edema resume aspirin when bleeding risk deemed minimal per ortho sx. Continue metoprolol, atorvastatin Other chronic medical conditions: Continue with/resume home meds as and when able. Hyperlipidemia: Continue home atorvastatin and Praluent T2DM: Sliding scale insulin while in hospital. A1c 6.0 this admission. Hypothyroidism: TSH: 0.13 on 09/26/2024 Levothyroxine since decreased from 112 mcg to 100 mcg daily Is to have outpatient repeat TSH Continue levothyroxine Tobacco use: Denies nicotine patch, tobacco cessation counseling done. Breast cancer: History of left breast cancer status postlumpectomy, radiation. DVT prophylaxis: SCDs for now, chemo DVT prophylaxis once bleeding risks deemed minimal per Ortho surgery. DNI/DNI PT/OT, CM to assist with DC planning. Admission and Anticipated Discharge Date Admission Date: October 04, 2024 Subjective Patient was seen and examined at bedside. Patient is status post left hip repair, was on 2 L nasal cannula oxygen, appears comfortable. Patient's son and niece at bedside who are also updated on plan of care. Patient reports pain fairly under control, denies any recent flulike illness or fever. Physical Exam Physical Exam: General: no acute distress, WDWN Head: normocephalic, atraumatic Eyes: conjunctiva non-injected, anicteric ENT: normal inspection external ears, nose, mucous membranes moist Neck: supple, trachea midline Lungs: diminished, no respiratory distress, no wheezing/rhonchi/rales CV: RRR, + murmur, no pretibial edema Abd: normal BS, soft, non-tender Ext: no cyanosis, no calf tenderness, normal appearance BUE with ROM intact and non-tender. LLE: left hip dressing c/d/i. RLE: normal appearance, non-tender, pedal pushes and pulls intact, sensation to light touch intact Neuro: A&O x 3, no focal deficits noted, normal affect Skin: warm, dry Results & Data Results & Data Vital Signs (Past 12 Hours) Vital Signs Temp Pulse Pulse Resp BP BP Pulse Ox 10/05/24 12:00 36.5 C 80 20 97/57 L 95 10/05/24 11:30 36.6 C 74 20 97/60 L 95 10/05/24 11:10 36.5 C 81 20 95/49 L 94 10/05/24 11:00 82 19 96/51 L 92 10/05/24 10:50 81 17 89/53 L 88 L 10/05/24 10:40 89 18 96/58 L 89 L 10/05/24 10:33 36.2 C L 86 20 93/47 L 85 L 10/05/24 06:53 36.5 C 74 20 101/59 L 92 10/05/24 05:42 36.7 C 75 96/62 L 92 10/05/24 01:12 36.5 C 72 96/60 L 93 O2 Del Method O2 Flow Rate 10/05/24 12:00 Nasal Cannula 2 10/05/24 11:30 Room Air 10/05/24 11:10 Nasal Cannula 4 10/05/24 11:00 Nasal Cannula 4 10/05/24 10:50 Nasal Cannula 4 10/05/24 10:40 Nasal Cannula 4 10/05/24 10:33 Room Air 10/05/24 06:53 Room Air 10/05/24 05:42 Room Air 10/05/24 01:12 Room Air
[2024-10-05] MEDS: ceFAZolin 2000MG 2,000 MG/15 ML SYR IV SCH (16:50)
[2024-10-05 18:29] VITALS: RESP 20
[2024-10-05] MEDS ORDERED: Nursing to Pharmacy Communication SCH (20:00)
[2024-10-05] MEDS: INSULIN ASPART PER UNIT CHARGE SC SCH (21:22)
[2024-10-06 04:02] VITALS: O2SAT 93
[2024-10-06 07:36] VITALS: BP 106/64; PULSE 85; TEMP 97.2
[2024-10-06 08:15] LABS: Basophils # (auto) 0.01 K/uL (0.00-0.20); Basophils % (auto) 0.1 %; Eosinophils # (auto) 0.03 K/uL (0.00-0.50); Eosinophils % (auto) 0.4 %; Hematocrit (blood only) 31.8 % (37.0-47.0); Hemoglobin 10.6 g/dl (12.0-16.0); Immature Granulocytes # (auto) 0.03 K/uL (0.01-0.20); Immature Granulocytes % (auto) 0.4 %; Lymphocytes # (auto) 1.76 K/uL (1.20-3.40); Lymphocytes % (auto) 23.5 %; Mean Corpuscular Hemoglobin 32.2 pg (25.0-34.0); Mean Corpuscular Hgb Conc 33.3 g/dL (32.0-36.0); Mean Corpuscular Volume 96.7 fL (80.0-100.0); Mean Platelet Volume 10.8 fL (9.4-12.4); Monocytes # (auto) 0.88 K/uL (0.11-0.59); Monocytes % (auto) 11.7 %; Neutrophils # (auto) 4.78 K/uL (1.40-6.50); Neutrophils % (auto) 63.9 %; Platelet Count 119 K/uL (130-400); RDW Coefficient of Variation 12.6 % (11.5-14.5); RDW Standard Deviation 44.5 fL (36.4-46.3); Red Blood Count 3.29 M/uL (4.20-5.40); White Blood Count 7.49 K/ul (4.8-10.8)
--- NOTE | 2024-10-06 08:36 | Orthopedic Progress Note ---
Date of Service October 06, 2024 Assessment & Plan (1) Fall: (2) Malignant neoplasm of upper-inner quadrant of left breast in female, estrogen receptor positive: (3) Tobacco use: (4) Hypothyroidism: (5) Diabetes mellitus, type 2: (6) Myocardial Infarction: (7) Basicervical fracture of neck of left femur: (8) Diabetes: (9) Heart disease: Plan 73-year-old female postoperative day #1 status post closed reduction and cephalomedullary nailing of the left hip for left basicervical femoral neck fracture. Patient doing well and her pain is well-controlled. She should be out of bed to chair 3 times daily with all meals. She is work with PT and OT to determine an appropriate discharge plan. She is okay from a orthopedic standpoint for DVT prophylaxis. I will plan to see her back in the office in 2 weeks for incision check. Admission and Anticipated Discharge Date Admission Date: October 04, 2024 Subjective 73-year-old female postoperative day #1 status post closed reduction cephalomedullary nailing of the left hip. Patient doing well. Notes that she was up and out of bed to chair for meals last night. Denies significant pain. Notes she has been able to move her hip more easily this morning. Review of Systems Review of Systems: negative unless otherwise stated above Physical Exam Physical Exam: Dressings clean dry and intact. Sensation tact light touch L2-S1. EHL/FHL/GSC/TA motor intact. Foot is warm and well-perfused. Results & Data Vital Signs (Past 12 Hours) Vital Signs Temp Pulse Resp BP Pulse Ox O2 Del Method 10/06/24 07:35 36.2 C L 85 20 106/64 93 Room Air 10/06/24 04:01 36.7 C 86 20 115/81 93 Room Air 10/06/24 00:17 37.0 C 87 106/67 92 Room Air Diagnostic Findings Postoperative imaging reviewed. Intact hardware transfixing left basicervical femoral neck fracture. no evidence of early complication
[2024-10-06 08:38] LABS: BUN Creatinine Ratio 22.9 (10-20); Calcium 8.4 mg/dl (8.6-10.3); Magnesium 1.6 mg/dl (1.7-2.4); Phosphorus 3.3 mg/dl (2.5-4.9); Potassium 3.6 mmol/L (3.5-5.1)
[2024-10-06] MEDS: oxyCODONE HCL IR 5 MG TAB (IMMEDIATE RELEASE) PO PRN (10:24)
--- NOTE | 2024-10-06 11:32 | Discharge Summary ---
Date of Service October 06, 2024 Admission HPI Per Admitting Provider History CAD, [place] in 2007 with complication of RCA dissection requiring bare-metal stent to ostium for stabilization, HTN, HLD, DM II, hypothyroidism, tobacco use, polycythemia, history of left breast CVA s/p lumpectomy, radiation, GERD, obesity presented to ER with complaint of fall and left hip pain today. Patient states was walking in to [place] today when she reports felt like her right knee gave out causing her to fall onto her left side. Denies hitting head, LOC or syncope. Denies dizziness, CP, SOB prior to fall. Denies any other injury. Patient transported to ER via EMS. Denies prior hip injury or problems. Had 3 cups coffee between 6am-8am. Nothing to drink after, and nothing to eat today. Denies any CP, SOB, exertional SOB or edema. Denies any history of nitroglycerin use for CP. Denies fever/chills, diaphoresis, N/V/D/C, GRANDA, dizziness, neck pain, CP, SOB, orthopnea, palpitations, cough, sore throat, rhinorrhea, abdominal pain, paresthesias, extremity edema, rashes, urinary symptoms. Admission Exam Per Admitting Provider General: no acute distress, WDWN Head: normocephalic, atraumatic Eyes: conjunctiva non-injected, anicteric ENT: normal inspection external ears, nose, mucous membranes moist Neck: supple, trachea midline Lungs: diminished, no respiratory distress, no wheezing/rhonchi/rales CV: RRR, + murmur, no pretibial edema Abd: normal BS, soft, non-tender Ext: no cyanosis, no calf tenderness, normal appearance BUE with ROM intact and non-tender. LLE: +left lateral hip tenderness to palpation, no attempted ROM, knee and remaining leg and ankle and foot non-tender to palpation, sensation to light touch intact. RLE: normal appearance, non-tender, pedal pushes and pulls intact, sensation to light touch intact Neuro: A&O x 3, no focal deficits noted, normal affect Skin: warm, dry Principal Diagnosis Fracture of femur, left, closed: Fall: Discharge Exam General: no acute distress, WDWN Head: normocephalic, atraumatic Eyes: conjunctiva non-injected, anicteric ENT: normal inspection external ears, nose, mucous membranes moist Neck: supple, trachea midline Lungs: diminished, no respiratory distress, no wheezing/rhonchi/rales CV: RRR, + murmur, no pretibial edema Abd: normal BS, soft, non-tender Ext: no cyanosis, no calf tenderness, normal appearance BUE with ROM intact and non-tender. LLE: left hip dressing c/d/i. RLE: normal appearance, non-tender, pedal pushes and pulls intact, sensation to light touch intact Neuro: A&O x 3, no focal deficits noted, normal affect Skin: warm, dry Discharge Data Allergies Allergy/AdvReac Type Severity Reaction Status Date / Time No Known Allergies Allergy Unknown Verified 10/04/24 13:43 Consultations 10/04/24 13:33 Consult Orthopedic Surgery Routine ED Decision to Admit Stat 10/04/24 14:10 Consult Anesthesiology Routine Consult Orthopedic Surgery Routine Procedures Performed Operation Date: 10/05/24 08:15 Actual Procedures p Closed reduction cephalomedullary nailing left hip, Physician directed fluoro scopy greater than 1 hour(Left) - Cyril Santoyo DO Ordered Studies 10/05/24 08:00 FL hip LT 2-3V Routine Hospital Course (1) Intertrochanteric fracture of left hip: Plan 73 yo F w/ PMH of [place], [place] in 2007 with complication of RCA dissection requiring bare-metal stent to ostium for stabilization, HTN, HLD, DM II, hypothyroidism, tobacco use, polycythemia, left breast CVA s/p lumpectomy, radiation, GERD, obesity presented to ER with complaint of fall and left hip pain. Denied hitting head, LOC or syncope. Denied dizziness, CP, SOB prior to fall. She was managed for the following: Fracture of femur, left, closed: Fall: Hip/pelvis xray: Nondisplaced intertrochanteric fracture proximal left femur. Left femur xray: Nondisplaced intertrochanteric fracture redemonstrated. No additional femoral injury is appreciated. CXR: No acute process. Ortho on board: Open Reduction of Left Hip, Cephalomedullary nail placement guided with fluoroscopy(Left) 4/3 Pain fairly under control with oxycodone as needed. Incentive spirometry Per orthopedics, okay to initiate chemo DVT prophylaxis and okay for discharge. Patient is being discharged to [facility] with Lovenox subcu for 35 days. Continue bowel regimen while on pain medication. Vitamin D level noted to be low, patient started on vitamin D supplement. HO CAD (coronary artery disease): 03/13/08: inferoposterior [place]. Emergent catheterization complicated by RCA dissection requiring bare-metal stenting to the ostium for stabilization. 10/29/16 cardiac catheterization: by Dr. Acharya at [facility] [place] following presentation with atypical chest pain, mildly abnormal EKG, and abnormal nuclear stress testing. Catheterization showed no progression of disease in the LCA; large LM, LAD, and two large LCX branches which were not compromised. There was only a small degree of collateral flow from the LAD septals to the RPDA. The RCA was patent but with a very long complex lesion extending 1/[address] representing recanalization. The risks of stenting the proximal RCA lesion were felt to be greater than the benefit thus medical management was advised 10/21/23 echo: EF: 55-59%, grade 1 diastolic dysfunction, aortic valve sclerosis without stenosis, severe mitral annular calcification, mild mitral regurgitation 12/08/23 Lexiscan Interpretation Summary: Normal Lexiscan myocardial perfusion imaging study without evidence of inducible ischemia, or myocardial scar. Gated SPECT images reveals normal myocardial thickening and wall motion. The LV ejection fraction is calculated at >70%. Denies CP, SOB, or edema resume aspirin when bleeding risk deemed minimal per ortho sx. Continue metoprolol, atorvastatin Other chronic medical conditions: Continue with/resume home meds as and when abl e. Hyperlipidemia: Continue home atorvastatin and Praluent T2DM: Sliding scale insulin while in hospital. A1c 6.0 this admission. Hypothyroidism: TSH: 0.13 on 09/26/2024 Levothyroxine since decreased from 112 mcg to 100 mcg daily Is to have outpatient repeat TSH Continue levothyroxine Tobacco use: Denies nicotine patch, tobacco cessation counseling done. Breast cancer: History of left breast cancer status postlumpectomy, radiation. DVT prophylaxis: SCDs for now, chemo DVT prophylaxis once bleeding risks deemed minimal per Ortho surgery. DNI/DNI PT/OT, CM to assist with DC planning. patient is being discharged to [facility] with following instructions at the point of discharge: Follow-up with your primary care physician within a week time and likely you will need labs CBC/CMP/magnesium/phosphorus. You were evaluated by for left hip fracture, orthopedics repaired your left hip 10/05/24. Follow-up with orthopedics in 2 to 4 weeks time upon discharge. You will need Lovenox subcutaneous for DVT prophylaxis for 35 days starting from your date of surgery. Continue with your physical therapy at rehab. Continue with incentive spirometer. Continue with bowel regimen. Follow-up with your repeat thyroid function test in about 6 weeks time, coordinate with your PCP office to set up the test. Your vitamin D levels were low, you have been started on vitamin D supplement along with your existing calcium/vitamin D supplement totaling to 1400 units of vitamin D daily. Repeat your vitamin D level in 3 months time, coordinate with your PCP office to set up the test. Take your medications as prescribed. Please make sure that you are able to get your medications today by calling your pharmacy before you leave the hospital so that your treatment continuity is not broken. Home Health Attestation I certify that this patient is under my care and that I, or a physicians clinical education assistant working with me, had a face to-face encounter that meets the home health falq-da-yicn encounter requirements with this patient. The encounter with the patient was in whole, or in part, for the following medical condition, which is the primary reason for home health care (list medical condition): I certify that, based on my findings, the following services are medically necessary home health services: My clinical findings support the need for the above services because: Further, I certify that my clinical findings support that this patient is homebound (i.e. absences from home require considerable and taxing effort and are for medical reasons or mosque services or infrequently or of short duration when for other reasons) because: Certification for Home Health Services: Based on the above findings, I certify that this patient is confined to the home and needs intermittent correction care, physical therapy and/or speech therapy or continues to need occupational therapy. The patient is under my care, and I have initiated the establishment of the plan of care. This patient will be followed by a physician who will periodically review the plan of care. Total Time Total Time Spent Total Time Spent (In Minutes): 35 Discharge Plan Discharge Items Patient Disposition: Transfer Inpatient Rehab Fac Reason For Visit: FEMUR FX Discharge Diagnosis: Fracture of femur, left, closed: Fall: Activity: Per Instructions section Activity Comment: Continue with physical therapy at rehab. Non-emergency contact: Primary Care Provider Call non-emergency contact if: you have any medication questions and your symptoms worsen Follow-up/Referrals: Radha Myers MD [Primary Care Provider] - Diet: Carb Count or DM1 Addtl Attending Provider Instructions: Follow-up with your primary care physician within a week time and likely you will need labs CBC/CMP/magnesium/phosphorus. You were evaluated by for left hip fracture, orthopedics repaired your left hip 10/05/24. Follow-up with orthopedics in 2 to 4 weeks time upon discharge. You will need Lovenox subcutaneous for DVT prophylaxis for 35 days starting from your date of surgery. Continue with your physical therapy at rehab. Continue with incentive spirometer. Continue with bowel regimen. Follow-up with your repeat thyroid function test in about 6 weeks time, coor dinate with your PCP office to set up the test. Your vitamin D levels were low, you have been started on vitamin D supplement along with your existing calcium/vitamin D supplement totaling to 1400 units of vitamin D daily. Repeat your vitamin D level in 3 months time, coordinate with your PCP office to set up the test. Take your medications as prescribed. Please make sure that you are able to get your medications today by calling your pharmacy before you leave the hospital so that your treatment continuity is not broken. Pending Studies at Discharge: No Stand-Alone Forms: My [facility] Skilled Items Patient informed of condition?: Yes DNR: Yes Discharge Level of Care: Acute rehab Communicable Disease: No Discharge Prognosis: Stable Lines: None Urinary Catheter: No Medications and DC Order Prescriptions: New enoxaparin [Lovenox] 40 mg/0.4 mL Syringe 40 mg subcut QAM 35 Days Qty: 14 0RF oxycodone 5 mg Tablet 5 mg PO Q4H PRN (Reason: moderate to severe pain) Qty: 20 0RF bisacodyl 10 mg Suppository 10 mg CO DAILY PRN (Reason: constipation) Qty: 12 0RF docusate sodium 100 mg Capsule 100 mg PO BID Qty: 20 0RF Rx Instructions: Hold for loose stools cholecalciferol (vitamin D3) 25 mcg (1,000 unit) Capsule 25 mcg PO QAM Qty: 30 0RF Continued calcium carbonate [Calcium 600] 600 mg calcium (1,500 mg) tablet 600 mg PO HS atorvastatin 80 mg Tablet 80 mg PO QAM metoprolol tartrate 25 mg Tablet 12.5 mg PO BID aspirin 81 mg Tablet,Delayed Release (Dr/Ec) 81 mg PO QAM levothyroxine 100 mcg tablet 100 mcg PO DAILYBB omeprazole 20 mg capsule,delayed release(DR/EC) 20 mg PO HS duloxetine 60 mg capsule,delayed release(DR/EC) 60 mg PO QAM Praluent Pen 75 mg/mL pen injector 75 mg subcut Q14D Rx Instructions: Every 2 weeks Ozempic 0.25 mg or 0.5 mg (2 mg/3 mL) pen injector 0.5 mg subcut WK Rx Instructions: Discharge Orders: Discharge Order (Routine); Ordered 10/06/24 Ordered By: Amaya Galloway/Other Patient Handouts: Managing Type 2 Diabetes Admission Data Admit Date/Time: 10/04/24 14:10 Attending Provider: Amaya Wan Admit Provider: Shayy Luong Primary Care Provider: Radha Myers Other Providers: Cyril Santoyo; Shayy Luong; Bob Rossi; [facility]
[2024-10-06] MEDS: CHOLECALCIFEROL 25 MCG (1000 UNITS) TAB PO SCH (11:52)
[2024-10-06] MEDS: MAGNESIUM SULFATE / D5W 1 GM/100 ML BAG IV SCH (11:52)
[2024-10-07] MEDS ORDERED: ENOXAPARIN INJ 40 MG/0.4 ML SYR SQ SCH (09:00)
== END 2024-10-06 15:01 | DRG 482 ==
LOC: ED 12:19 → EDINP 14:10 → SUATTDRO 14:10 → 3N 17:14